=== PATIENT | female | born 1935 | race Caucasian/White ===

== ENCOUNTER → 2017-06-16 | Outpatient (CLI) | payer MEDICARE ==
--- NOTE | 2017-06-16 16:39 | BD ---
EXAMINATION TYPE: MG DEXA axial skeleton. DATE OF EXAM: 06/16/2017 COMPARISON: NONE CLINICAL HISTORY: 81-year-old female with osteopenia, postmenopausal screening Height: 5 FT 4 IN Weight: 200 FRAX RISK QUESTIONS: Alcohol (3 or more units per day): NO Family History (Parent hip fracture): NO Glucocorticoids (More than 3mos): NO (Ex: prednisone, prednisolone, methylprednisolone, dexamethasone, and hydrocortisone). History of Fracture in Adulthood: YES Secondary Osteoporosis: 1. Type 1 Diabetes: NO 2. Hyperthyroidism: NO 3. Menopause before 45: YES 4. Malnutrition: NO 5. Chronic liver disease: NO Rheumatoid Arthritis: YES Current Tobacco Use: NO RISK FACTORS HISTORY OF: Family History of Osteoporosis: YES Active: NO Postmenopausal woman: AGE 41 MEDICATIONS: Additional Medications: ALPRAZOLAM,FAMOTIDINE,LOSARTIN, NORCO, DULOXETINE HCL,CEPHALEXIN, DICYCLOMINE ,CARBIDOPA LEVODPA,AMITRIPTYLINE, NOVALOG, NASACORT, NYSTATIN CREAMFLUCIONIDE, VOLTAREN GEL Additional History: EXAM MEASUREMENTS: Bone mineral densitometry was performed using the [employer] System. Bone mineral density as measured about the Lumbar spine is: ----- L1-L4(G/cm2): 1.368 T Score Values are as follows: ----- L2: 1.0 ----- L3: 1.3 ----- L4: 2.0 ----- L1-L4: 1.4 Bone mineral density has: Increased 1.7% since study of: 2014 Bone mineral density about the R hip (g/cm2): 0.849 Bone mineral density about the L hip (g/cm2): 0.779 T Score values are as follows: -----R Neck: -1.4 -----L Neck: -1.9 -----R Total: -0.9 -----L Total: -1.0 Bone mineral density has: Increased 1.1% since study of: 2014 IMPRESSION: Osteopenia (T Score between -2.5 and -1 as noted by T score values in both hips). There is slightly increased risk of fracture and the patient may be considered for treatment. Re-Scre en 2-5 years. NOTE: T-SCORE=SD OF THE YOUNG ADULT MEAN.
--- NOTE | 2017-06-17 12:47 | MM ---
Reason for exam: screening (asymptomatic). Last mammogram was performed 1 year and 3 months ago. History: Patient is postmenopausal and is nulliparous. Benign core biopsy of the right breast, 1999. 2 excisional biopsies of the left breast, 1999. Physical Findings: A clinical breast exam by your physician is recommended on an annual basis and results should be correlated with mammographic findings. MG 3D Screening Mammo W/Cad Bilateral CC and MLO view(s) were taken. Prior study comparison: March 03, 2016, bilateral MG 3d screening mammo w/cad. August 26, 2015, left breast MG 3d diag mammo w/cad LT. There are scattered fibroglandular densities. No suspicious abnormality in the right breast. Focal asymmetry in the left upper outer quadrant middle depth just posterior to dystrophic calcifications on CC view and MLO view . ASSESSMENT: Incomplete: need additional imaging evaluation, BI-RAD 0 RECOMMENDATION: Special view mammogram of the left breast. If lesion persists on supplemental views, image directed ultrasound is recommended. [facility] will attempt to contact patient to return for supplemental views and ultrasound if indicated.
== END ==
LOC: RADMAMWWP 13:24
PROVIDERS: ATTEND Internal Medicine
DX: Z12.31 Encounter for screening mammogram for malignant neoplasm of breast (principal); M85.851 Other specified disorders of bone density and structure, right thigh; M85.852 Other specified disorders of bone density and structure, left thigh
CPT/HCPCS: 77080; 77063; G0202

== ENCOUNTER → 2018-07-01 | Outpatient (CLI) | payer MEDICARE ==
--- NOTE | 2018-07-01 16:56 | US ---
EXAMINATION TYPE: US transvaginal DATE OF EXAM: 07/01/2018 COMPARISON: NONE CLINICAL HISTORY: R10.2Pelvic and perineal pain, N93.9Abnormal uteri. Spotting, left ovary removed. TECHNIQUE: Transvaginal (TV). EXAM MEASUREMENTS: Uterus: 5.4 x 2.5 x 3.7 cm Endometrial Stripe: 1.2 cm Right Ovary: Obscured by bowel gas Left Ovary: Surgically absent 1. Uterus: Anteverted wnl 2. Endometrium: Enlarged heterogenous texture. 3. Right Ovary: Not seen 4. Left Ovary: Surgically absent 5. Bilateral Adnexa: wnl 6. Posterior cul-de-sac: wnl Enlarged heterogenous endometrium 1.2cm. IMPRESSION: 1. Endometrium appears heterogenous and thickened. 2. Nonvisualization of the right ovary.
== END ==
LOC: RADUSMAIN 15:40
PROVIDERS: ATTEND Internal Medicine
DX: N93.9 Abnormal uterine and vaginal bleeding, unspecified (principal); R10.2 Pelvic and perineal pain
CPT/HCPCS: 76830

== ENCOUNTER → 2018-07-14 | Outpatient (CLI) | payer MEDICARE ==
[2018-07-14 14:01] LABS: Basophils % (A) 0 %; Eosinophils # (A) 0.3 k/uL (0-0.7); Eosinophils % (A) 4 %; HCT 38.9 % (34.0-46.0); HGB 12.3 gm/dL (11.4-16.0); Lymphocytes # (A) 2.4 k/uL (1.0-4.8); Lymphocytes % (A) 32 %; MCH 30.1 pg (25.0-35.0); MCHC 31.5 g/dL (31.0-37.0); MCV 95.6 fL (80.0-100.0); Mean Platelet Volume 7.1; Monocytes # (A) 0.4 k/uL (0-1.0); Monocytes % (A) 5 %; Neutrophils # (A) 4.2 k/uL (1.3-7.7); Neutrophils % (A) 56 %; Platelet Count 197 k/uL (150-450); RBC 4.07 m/uL (3.80-5.40); RDW 13.3 % (11.5-15.5); WBC 7.5 k/uL (3.8-10.6)
== END | disposition home or self-care (01) ==
LOC: LABPAT 11:59
PROVIDERS: ATTEND Obstetrics & Gynecology Obstetrics
DX: Z01.818 Encounter for other preprocedural examination (principal); I10 Essential (primary) hypertension; N95.0 Postmenopausal bleeding; Z01.812 Encounter for preprocedural laboratory examination
CPT/HCPCS: 36415; 85025; 93005

== ENCOUNTER → 2018-08-05 | Outpatient (CLI) | payer MEDICARE ==
[2018-08-05 14:48] LABS: Albumin 3.6 g/dL (3.5-5.0); Calcium 9.2 mg/dL (8.4-10.2); Potassium 4.6 mmol/L (3.5-5.1); Total Bilirubin 0.5 mg/dL (0.2-1.3); Total Protein 6.9 g/dL (6.3-8.2)
[2018-08-05 22:22] LABS: Hemoglobin A1C 8.4 % (4.0-6.0)
--- NOTE | 2018-08-08 10:56 | MM ---
Reason for exam: screening (asymptomatic). Last mammogram was performed 1 year and 1 month ago. History: Patient is postmenopausal and is nulliparous. Benign core biopsy of the right breast, 1999. 2 excisional biopsies of the left breast, 1999. Physical Findings: A clinical breast exam by your physician is recommended on an annual basis and results should be correlated with mammographic findings. MG 3D Screening Mammo W/Cad Bilateral CC and MLO view(s) were taken. Prior study comparison: June 23, 2017, left breast MG 3d work up w/cad LT. June 16, 2017, bilateral MG 3d screening mammo w/cad. There are scattered fibroglandular densities. There are increasing calcifications in the upper outer quadrant bilaterally at middle depth, 3mm group on the right and 4mm group on the left. ASSESSMENT: Incomplete: need additional imaging evaluation, BI-RAD 0 RECOMMENDATION: Special view mammogram of both breasts. If lesion persists on supplemental views, image directed ultrasound is recommended. [facility] will attempt to contact patient to return for supplemental views and ultrasound if indicated.
== END | disposition home or self-care (01) ==
LOC: RADMAMWWP 13:29
PROVIDERS: ATTEND Internal Medicine
DX: Z12.31 Encounter for screening mammogram for malignant neoplasm of breast (principal); E11.9 Type 2 diabetes mellitus without complications
CPT/HCPCS: 36415; 77063; 77067; 80053; 83036

== ENCOUNTER → 2018-09-15 | Outpatient (CLI) | payer MEDICARE ==
--- NOTE | 2018-09-17 16:01 | MM ---
Reason for exam: additional evaluation requested from abnormal screening. Last mammogram was performed 1 month ago. History: Patient is postmenopausal and is nulliparous. Benign core biopsy of the right breast, 1999. 2 excisional biopsies of the left breast, 1999. Physical Findings: Nurse Summary: a 0.5 x 0.5 cm dominant mass at 3 o'clock at the scar. MG 3D Work Up W/Cad CATHERINE Bilateral CC with magnification, ML, and ML with magnification view(s) were taken. Prior study comparison: August 05, 2018, bilateral MG 3d screening mammo w/cad. June 23, 2017, left breast MG 3d work up w/cad LT. There are benign-appearing grouped round dystrophic bilateral breast calcifications. Increase in number o calcifications bilaterally. These results were verbally communicated with the patient and result sheet given to the patient on 09/15/18. ASSESSMENT: Probably benign, BI-RAD 3 RECOMMENDATION: Follow-up diagnostic mammogram of both breasts in 6 months. To include special views.
== END | disposition home or self-care (01) ==
LOC: RADMAMWWP 13:38
PROVIDERS: ATTEND Internal Medicine
DX: R92.8 Other abnormal and inconclusive findings on diagnostic imaging of breast (principal)
CPT/HCPCS: 77066; G0279; 77062

== ENCOUNTER → 2018-12-22 | Outpatient (CLI) | payer MEDICARE | END | disposition home or self-care (01) | LOC: RADUSWWP 12:02 | PROVIDERS: ATTEND Physical Medicine & Rehabilitation | DX: M79.605 Pain in left leg (principal); M79.604 Pain in right leg; M79.89 Other specified soft tissue disorders | CPT/HCPCS: 93922 ==

== ENCOUNTER → 2019-04-19 | Outpatient (CLI) | payer MEDICARE ==
--- NOTE | 2019-04-19 14:15 | MM ---
Reason for exam: follow-up at short interval from prior study. Last mammogram was performed 7 months ago. History: Patient is postmenopausal and is nulliparous. Benign core biopsy of the right breast, 1999. 2 excisional biopsies of the left breast, 1999. Physical Findings: Nurse Summary: 0.25cm nodule in the left breast at 3 o'clock (nurse dw). MG 3D Diag Mammo W/Cad CATHERINE Bilateral CC and MLO view(s) were taken. Prior study comparison: September 15, 2018, bilateral MG 3d work up w/cad CATHERINE. August 05, 2018, bilateral MG 3d screening mammo w/cad. There are scattered fibroglandular densities. The bilateral grouped calcifications are stable with particular attention to the right upper outer quadrant calcifications at middle depth and left upper outer quadrant calcifications at middle depth. These results were verbally communicated with the patient and result sheet given to the patient on 04/19/19. ASSESSMENT: Probably benign, BI-RAD 3 RECOMMENDATION: Follow-up diagnostic mammogram of both breasts in 6 months.
== END | disposition home or self-care (01) ==
LOC: RADMAMWWP 13:09
PROVIDERS: ATTEND Family Medicine
DX: R92.8 Other abnormal and inconclusive findings on diagnostic imaging of breast (principal)
CPT/HCPCS: 77066; G0279; 77062

== ENCOUNTER 2020-02-23 20:26 | Emergency (ER) | payer MEDICARE ==
[2020-02-23 20:36] VITALS: TEMP 98.5
[2020-02-23] MEDS ORDERED: HYDROmorphone 1 MG/ML 1 ML SYRINGE IVP STA (21:07)
--- NOTE | 2020-02-23 21:24 | ED ---
General Adult HPI - General Chief complaint: Back Pain/Injury Stated complaint: Back pain Time Seen by Provider: 02/23/20 20:36 Source: patient, family, RN notes reviewed, old records reviewed Mode of arrival: wheelchair Limitations: no limitations - History of Present Illness Initial comments: 84-year-old female presenting for evaluation of right lower back pain. Pain is been present for the past 3 weeks. She denies any specific injury or trauma. Patient denies fever or chills. She states the pain is been worsening over the past several days. She took Tylenol today with minimal relief. Pain is worse with movement. She denies any numbness or tingling or shooting pain into the legs. She denies bowel or bladder incontinence. Denies dysuria or hematuria. Denies vomiting. - Related Data Home Medications Medication Instructions Recorded Confirmed ALPRAZolam [Xanax] 0.25 mg PO TID MDD 0.25 07/14/16 07/15/18 DULoxetine HCL [Cymbalta] 20 mg PO QAM 07/14/16 07/15/18 Dicyclomine [Bentyl] 10 mg PO QID PRN 07/14/16 07/18/18 Famotidine 40 mg PO HS 07/14/16 07/15/18 Insulin Aspart [NovoLOG] 24 units SQ AC-TID 07/14/16 07/18/18 Insulin Glargine [Lantus] 50 unit SQ HS 07/14/16 07/18/18 Krill Oil 1 tab PO DAILY 07/14/16 07/15/18 L.acidoph,Paracasei, B.lactis 1 tab PO DAILY 07/14/16 07/15/18 [Probiotic] Melatonin 3 mg PO HS 07/14/16 07/15/18 Multivitamins, Thera [Multivitamin] 1 tab PO DAILY 07/14/16 07/15/18 Nystatin 100,000 Unit/gm Oint 1 applic TOPICAL DIRECTED PRN 07/14/16 07/15/18 [Mycostatin Oint] Selenium 100 mcg PO DAILY 07/14/16 07/15/18 rOPINIRole HCL [Requip Xl] 4 mg PO QAM 07/14/16 07/15/18 Amitriptyline HCl [Elavil] 10 mg PO HS 07/15/18 07/15/18 Amoxicillin 500 mg PO ONCE PRN 07/15/18 07/18/18 Biotin 5,000 mcg PO DAILY 07/15/18 07/15/18 Calcium 5 mg PO DAILY 07/15/18 07/15/18 Calcium Carbonate/Vitamin D3 1 each PO DAILY 07/15/18 07/15/18 [Calcium 600-Vit D3 200 Tablet] Carbidopa-Levodopa ER 50-200Mg 1 each PO TID 07/15/18 07/15/18 [Sinemet ER 50-200] Cholecalciferol (Vitamin D3) 2,000 unit PO DAILY 07/15/18 07/15/18 [Vitamin D3] Diclofenac Sodium [Voltaren Gel] 2 gram TOPICAL DIRECTED PRN 07/15/18 07/15/18 HYDROcodone/APAP 5-325MG [Mozier 1 tab PO QID 07/15/18 07/15/18 5-325] Hydrocortisone Cream 1 applic TOPICAL BID PRN 07/15/18 07/18/18 [Hydrocortisone 2.5% Cream] Losartan [Cozaar] 50 mg PO QAM 07/15/18 07/15/18 Magnesium 500 mg PO DAILY 07/15/18 07/15/18 Saline Eye Drops 2 drops BOTH EYES BID 07/15/18 07/18/18 Stool Softener 2 tab PO HS 07/15/18 07/15/18 Ubidecarenone [Co Q-10] 400 mg PO DAILY 07/15/18 07/15/18 Vitamin B-12 300 mg PO DAILY 07/15/18 07/15/18 Previous Rx's Medication Instructions Recorded HYDROcodone/APAP 5-325MG [Mozier 1 tab PO Q6HR PRN #12 tab 02/23/20 5-325] Allergies Allergy/AdvReac Type Severity Reaction Status Date / Time codeine AdvReac Hallucinati Verified 02/23/20 20:36 ons Review of Systems ROS Statement: Those systems with pertinent positive or pertinent negative responses have been documented in the HPI. ROS Other: All systems not noted in ROS Statement are negative. Past Medical History Past Medical History: Diabetes Mellitus Additional Past Medical History / Comment(s): Parkinsons, Arthritis, diverticulitis History of Any Multi-Drug Resistant Organisms: None Reported Past Surgical History: Joint Replacement, Tonsillectomy Past Anesthesia/Blood Transfusion Reactions: No Reported Reaction Past Psychological History: No Psychological Hx Reported Smoking Status: Never smoker Past Alcohol Use History: None Reported Past Drug Use History: None Reported General Exam Limitations: no limitations General appearance: alert, in no apparent distress Head exam: Present: atraumatic, normocephalic Eye exam: Present: normal appearance, PERRL ENT exam: Present: normal exam Neck exam: Present: normal inspection. Absent: tenderness, meningismus Respiratory exam: Present: normal lung sounds bilaterally. Absent: respiratory distress, wheezes Cardiovascular Exam: Present: regular rate, normal rhythm GI/Abdominal exam: Present: soft. Absent: distended, tenderness, guarding Extremities exam: Present: normal inspection, normal capillary refill. Absent: pedal edema, calf tenderness Back exam: Present: muscle spasm, paraspinal tenderness. Absent: vertebral t enderness Neurological exam: Present: alert, oriented X3, CN II-XII intact. Absent: motor sensory deficit Psychiatric exam: Present: normal affect, normal mood Skin exam: Present: warm, dry, intact. Absent: cyanosis, diaphoretic Course Vital Signs 02/23/20 20:33 Temperature 98.5 F Pulse Rate 87 Respiratory 20 Rate Blood Pressure 139/70 O2 Sat by Pulse 98 Oximetry Medical Decision Making - Medical Decision Making 84-year-old female with right flank pain. Patient receives morphine emergency department with improvement in her pain. CT performed is negative for renal stone, no hydro-, previous bowel resection, no acute findings. She does have some spinal canal narrowing at L3-L4. No acute fracture or subluxation. Urinalysis showing several white cells, no red cells. She will be prescribed s ome Mozier and will follow-up with her primary care physician. Patient eager for discharge. - Lab Data Result diagrams: 02/23/20 21:26 Lab Results 02/23/20 02/23/20 Range/Units 21:26 21:30 Sodium 134 L (137-145) mmol/L Potassium 4.4 (3.5-5.1) mmol/L Chloride 101 (98-107) mmol/L Carbon Dioxide 28 (22-30) mmol/L Anion Gap 5 mmol/L BUN 18 H (7-17) mg/dL Creatinine 0.76 (0.52-1.04) mg/dL Est GFR (CKD-EPI)AfAm 84 (>60 ml/min/1.73 sqM) Est GFR (CKD-EPI)NonAf 73 (>60 ml/min/1.73 sqM) Glucose 284 H (74-99) mg/dL Calcium 8.7 (8.4-10.2) mg/dL Total Bilirubin 0.3 (0.2-1.3) mg/dL AST 29 (14-36) U/L ALT 10 (4-34) U/L Alkaline Phosphatase 131 H (38-126) U/L Total Protein 6.4 (6.3-8.2) g/dL Albumin 3.4 L (3.5-5.0) g/dL Urine Color Yellow Urine Appearance Clear (Clear) Urine pH 5.5 (5.0-8.0) Ur Specific Green 1.033 (1.001-1.035) Urine Protein Trace H (Negative) Urine Glucose (UA) 4+ H (Negative) Urine Ketones 1+ H (Negative) Urine Blood Negative (Negative) Urine Nitrite Negative (Negative) Urine Bilirubin Negative (Negative) Urine Urobilinogen 3.0 (<2.0) mg/dL Ur Leukocyte Esterase Moderate H (Negative) Urine RBC 3 (0-5) /hpf Urine WBC 16 H (0-5) /hpf Ur Squamous Epith Cells 2 (0-4) /hpf Hyaline Casts 1 (0-2) /lpf Urine Mucus Rare H (None) /hpf Disposition Clinical Impression: Mechanical back pain, Strain of lumbar region Disposition: HOME SELF-CARE Condition: Fair Instructions (If sedation given, give patient instructions): Acute Low Back Pain (ED) Prescriptions: HYDROcodone/APAP 5-325MG [Mozier 5-325] 1 tab PO Q6HR PRN #12 tab PRN Reason: Pain Is patient prescribed a controlled substance at d/c from ED?: No Referrals: Jessenia Grant MD [Primary Care Provider] - 1-2 days Time of Disposition: 23:10
[2020-02-23 21:44] LABS: Albumin 3.4 g/dL (3.5-5.0); Calcium 8.7 mg/dL (8.4-10.2); Potassium 4.4 mmol/L (3.5-5.1); Total Bilirubin 0.3 mg/dL (0.2-1.3); Total Protein 6.4 g/dL (6.3-8.2)
[2020-02-23 21:53] LABS: Appearance,Urine Clear (Clear); Bilirubin,Urine Negative (Negative); Blood,Urine Negative (Negative); Color,Urine Yellow; Glucose,Urine (UA) 4+ (Negative); Hyaline Casts,Urine 1 /lpf (0-2); Ketones,Urine 1+ (Negative); Leukocyte Esterase,Urine Moderate (Negative); Mucus,Urine Rare /hpf; Nitrite,Urine Negative (Negative); PH, Urine 5.5 (5.0-8.0); Protein,Urine Trace (Negative); RBC,Urine 3 /hpf (0-5); Specific Gravity,Urine 1.033 (1.001-1.035); Squamous Epithelial Cell,Urine 2 /hpf (0-4); WBC,Urine 16 /hpf (0-5)
--- NOTE | 2020-02-23 22:00 | CT ---
EXAMINATION TYPE: CT abdomen pelvis wo con DATE OF EXAM: 02/23/2020 COMPARISON: None HISTORY: 84-year-old female with right flank pain CT DLP: 991.5 mGycm. Automated exposure control for dose reduction was used. TECHNIQUE: Contiguous axial scanning of the abdomen and pelvis without IV contrast. Coronal and sagit alejandrina reconstructions performed. FINDINGS: Heart normal size without pericardial effusion. Mitral annular calcifications are present. Strandy at electasis at the left base without pleural effusion. Tiny hiatal hernia. Liver borderline enlarged at 17.8 cm with low-attenuation suggesting fatty infiltration. Cholecystectomy clips. Noncontrast appearance of the adrenal glands, kidneys, spleen, and atrophic pancreas show no gross ab normality. No nephrolithiasis or hydronephrosis. No suspicious calcification seen along the course of either ure ter. No dilated small bowel, free fluid, or free air. No mesenteric or retroperitoneal lymphadenopathy. Small fatty umbilical hernia. Mild overall stool burden. Mild proximal sigmoid diverticulosis. Staple line near the rectosigmoid ju nction suggesting prior bowel resection and reanastomosis. Some thickening along the infraumbilical midline abdominal wall musculature suggesting scarring relat ed to prior surgery. Bladder partially distended. Uterus is small and anteverted. Neither ovary clearly seen. Multiple pel hilton phleboliths. No abnormal fluid collection in the pelvis or pelvic lymphadenopathy. Bones: Mild degenerative change of the hips. Degenerative disc disease throughout the lumbar spleen. Hypertrophic facet arthropathy. There may be a moderate narrowing of the spinal canal L3-L4. IMPRESSION: 1. No nephrolithiasis or hydronephrosis. 2. Prior distal colon resection with rectosigmoid reanastomosis. Mild proximal sigmoid diverticulosi s without acute diverticulitis. 3. Small fatty umbilical hernia and tiny hiatal hernia. Hepatic steatosis.
[2020-02-23 23:54] VITALS: BP 139/62; PULSE 89; RESP 18
== END 2020-02-23 23:28 | disposition home or self-care (01) ==
LOC: EC 20:26
DX: S39.012A Strain of muscle, fascia and tendon of lower back, initial encounter (principal); M48.061 Spinal stenosis, lumbar region without neurogenic claudication; E11.9 Type 2 diabetes mellitus without complications; G20 Parkinson's disease; Z79.4 Long term (current) use of insulin; Z79.899 Other long term (current) drug therapy; Z88.5 Allergy status to narcotic agent; X58.XXXA Exposure to other specified factors, initial encounter
CPT/HCPCS: 36415; 80053; 81001; 87086; 74176; 99284; 96374; J1170

== ENCOUNTER → 2021-01-20 | Outpatient (CLI) | payer MEDICARE ==
[2021-01-20 19:22] LABS: Basophils # (A) 0.05 X 10*3/uL (0.00-0.10); Basophils % (A) 0.6 %; Eosinophils # (A) 0.23 X 10*3/uL (0.04-0.35); Eosinophils % (A) 2.8 %; HCT 37.7 % (37.2-46.3); HGB 11.9 g/dL (12.0-15.0); Lymphocytes # (A) 2.46 X 10*3/uL (0.90-5.00); Lymphocytes % (A) 29.7 %; MCH 29.9 pg (27.0-32.0); MCHC 31.6 g/dL (32.0-37.0); MCV 94.7 fL (80.0-97.0); Mean Platelet Volume 10.7 fL (9.5-12.2); Monocytes # (A) 0.51 X 10*3/uL (0.20-1.00); Monocytes % (A) 6.2 %; Neutrophils # (A) 4.98 X 10*3/uL (1.80-7.70); Neutrophils % (A) 60.2 %; Platelet Count 233 X 10*3/uL (140-440); RBC 3.98 X 10*6/uL (4.10-5.20); RDW 13.2 % (11.5-14.5); WBC 8.27 X 10*3/uL (4.50-10.00)
[2021-01-20 21:34] LABS: ALT <8 U/L (8-44); AST 24 U/L (13-35); African American GFR (CKD) 68.1 (60.0-200.0); Albumin/Globulin Ratio 1.46 (1.60-3.17); Alkaline Phosphatase 65 U/L (41-126); Amylase 64 U/L (23-121); Calcium 8.8 mg/dL (8.7-10.3); Carbon Dioxide 25.4 mmol/L (21.6-31.8); Chloride 109 mmol/L (96-109); Globulin 2.4 g/dL (1.6-3.3); Glucose 88 mg/dL (70-110); Lipase 24 U/L (14-63); Non-African American GFR(CKD) 58.7 (60.0-200.0); Potassium 4.4 mmol/L (3.5-5.5); Sodium 142 mmol/L (135-145); Total Bilirubin 0.5 mg/dL (0.2-1.2); Total Protein 5.9 g/dL (6.2-8.2)
== END | disposition home or self-care (01) ==
LOC: LABWHC1 12:44
PROVIDERS: ATTEND Registered Nurse
DX: R10.84 Generalized abdominal pain (principal)
CPT/HCPCS: 36415; 80053; 82150; 83690; 85025

== ENCOUNTER → 2021-05-30 | Outpatient (CLI) | payer MEDICARE ==
[2021-05-30 19:04] LABS: HCT 38.4 % (37.2-46.3); HGB 12.4 g/dL (12.0-15.0); MCH 30.5 pg (27.0-32.0); MCHC 32.3 g/dL (32.0-37.0); MCV 94.3 fL (80.0-97.0); Mean Platelet Volume 10.4 fL (9.5-12.2); Platelet Count 245 X 10*3/uL (140-440); RBC 4.07 X 10*6/uL (4.10-5.20); RDW 12.9 % (11.5-14.5); WBC 8.05 X 10*3/uL (4.50-10.00)
[2021-05-30 19:55] LABS: Hemoglobin A1C 8.4 % (4.0-6.0)
[2021-05-30 22:44] LABS: African American GFR (CKD) 43.6 (60.0-200.0); Albumin 3.9 g/dL (3.80-4.90); Albumin/Globulin Ratio 1.5 (1.60-3.17); Anion Gap 8.8 mmol/L (4.00-12.00); Calcium 9.2 mg/dL (8.7-10.3); Carbon Dioxide 26.2 mmol/L (21.6-31.8); Globulin 2.6 g/dL (1.6-3.3); Non-African American GFR(CKD) 37.6 (60.0-200.0); Potassium 4.6 mmol/L (3.5-5.5); Total Bilirubin 0.4 mg/dL (0.3-1.2); Total Protein 6.5 g/dL (6.2-8.2)
[2021-05-30 22:52] LABS: T4, Free (Free Thyroxine) 1.2 ng/dL (0.80-1.80)
== END | disposition home or self-care (01) ==
LOC: LABWHC1 13:39
PROVIDERS: ATTEND Registered Nurse
DX: E11.9 Type 2 diabetes mellitus without complications (principal); R53.83 Other fatigue; R61 Generalized hyperhidrosis; Z79.899 Other long term (current) drug therapy
CPT/HCPCS: 36415; 80053; 83036; 84439; 84443; 84481; 85027

== ENCOUNTER 2021-08-31 14:02 | Inpatient (IN) | payer MEDICARE ==
--- NOTE | 2021-08-31 15:11 | ED ---
General Adult HPI - General Source: patient, family, EMS, RN notes reviewed Mode of arrival: EMS Limitations: no limitations <Andrea Cee - Last Filed: 08/31/21 15:08> <Neil Aldrich - Last Filed: 08/31/21 19:16> - General Chief complaint: Syncope Stated complaint: Bradycardia Time Seen by Provider: 08/31/21 14:10 - History of Present Illness Initial comments: Patient is a pleasant 86-year-old female presenting with daughter with episode of syncope. Patient woke up around noon and was eating breakfast. Patient has been sleeping until noon regularly and that is normal for her. Patient states she feels fine at this time has no complaints. Daughter states patient did have some abnormal movement and was unresponsive for a short period of time. Patient feels fine at this time has no complaints. No history of similar symptoms previously. (Andrea Cee) Patient is cyanotic male by previous shift physician, Dr. Cee. Briefly, patient is a 86-year-old female past medical history of diabetes, Parkinson's. She has no complaints at the bedside. Physical exam is unremarkable. EKG machine interprets cardiogram as second-degree type I. EKG looked like second- degree type I. court recording monitor was reviewed confirming multiple episodes of skipped beat with progressively prolonging MT intervals consistent with second- degree type I. Patient was bradycardic with a rate of 54 bedside. Nonhypertensive. Medications reviewed. Patient does not take any beta blockers or other medications that are suspicious for causing bradycardia. Patient was evaluated at bedside at 7:00 PM.Daughter was still at the bedside and told me the story about what happened today. She reports that patient had a convulsive episode where 1 of her extremities were is convulsing. Daughter reports that she did witness a postictal state that lasted for several minutes until she returned back to baseline. Patient has seen a neurologist for Parkinson's disease. She has no history of seizure. Labs are unremarkable. CBC, coag panel metabolic panel was within acceptable limits. Physical presentation concerning for new onset seizure. Patient be admitted to the hospital with consultation to neurology. (Neil Aldrich) - Related Data Home Medications Medication Instructions Recorded Confirmed ALPRAZolam [Xanax] 0.25 mg PO TID MDD 0.25 07/14/16 07/15/18 DULoxetine HCL [Cymbalta] 20 mg PO QAM 07/14/16 07/15/18 Dicyclomine [Bentyl] 10 mg PO QID PRN 07/14/16 07/18/18 Famotidine 40 mg PO HS 07/14/16 07/15/18 Insulin Aspart [NovoLOG] 24 units SQ AC-TID 07/14/16 07/18/18 Insulin Glargine [Lantus] 50 unit SQ HS 07/14/16 07/18/18 Krill Oil 1 tab PO DAILY 07/14/16 07/15/18 L.acidoph,Paracasei, B.lactis 1 tab PO DAILY 07/14/16 07/15/18 [Probiotic] Melatonin 3 mg PO HS 07/14/16 07/15/18 Multivitamins, Thera [Multivitamin] 1 tab PO DAILY 07/14/16 07/15/18 Nystatin 100,000 Unit/gm Oint 1 applic TOPICAL DIRECTED PRN 07/14/16 07/15/18 [Mycostatin Oint] Selenium 100 mcg PO DAILY 07/14/16 07/15/18 rOPINIRole HCL [Requip Xl] 4 mg PO QAM 07/14/16 07/15/18 Amitriptyline HCl [Elavil] 10 mg PO HS 07/15/18 07/15/18 Amoxicillin 500 mg PO ONCE PRN 07/15/18 07/18/18 Biotin [Biotin Disolve] 5,000 mcg PO DAILY 07/15/18 07/15/18 Calcium 5 mg PO DAILY 07/15/18 07/15/18 Calcium Carbonate/Vitamin D3 1 each PO DAILY 07/15/18 07/15/18 [Calcium 600-Vit D3 200 Tablet] Carbidopa-Levodopa ER 50-200Mg 1 each PO TID 07/15/18 07/15/18 [Sinemet ER 50-200] Cholecalciferol (Vitamin D3) 2,000 unit PO DAILY 07/15/18 07/15/18 [Vitamin D3] Diclofenac Sodium [Voltaren Gel] 2 gram TOPICAL DIRECTED PRN 07/15/18 07/15/18 HYDROcodone/APAP 5-325MG [[place] 1 tab PO QID 07/15/18 07/15/18 5-325] Hydrocortisone Cream 1 applic TOPICAL BID PRN 07/15/18 07/18/18 [Hydrocortisone 2.5% Cream] Losartan [Cozaar] 50 mg PO QAM 07/15/18 07/15/18 Magnesium 500 mg PO DAILY 07/15/18 07/15/18 Saline Eye Drops 2 drops BOTH EYES BID 07/15/18 07/18/18 Stool Softener 2 tab PO HS 07/15/18 07/15/18 Ubidecarenone [Co Q-10] 400 mg PO DAILY 07/15/18 07/15/18 Vitamin B-12 300 mg PO DAILY 07/15/18 07/15/18 Previous Rx's Medication Instructions Recorded HYDROcodone/APAP 5-325MG [[place] 1 tab PO Q6HR PRN #12 tab 02/23/20 5-325] Allergies Allergy/AdvReac Type Severity Reaction Status Date / Time codeine AdvReac Hallucinati Verified 02/23/20 20:36 ons Review of Systems ROS Other: All systems not noted in ROS Statement are negative. Constitutional: Denies: fever Eyes: Denies: eye pain ENT: Denies: ear pain Respiratory: Denies: cough, dyspnea Cardiovascular: Denies: chest pain Endocrine: Denies: fatigue Gastrointestinal: Denies: abdominal pain Genitourinary: Denies: dysuria Musculoskeletal: Denies: as per HPI Skin: Denies: rash Neurological: Denies: headache, weakness, confusion <Andrea Cee - Last Filed: 08/31/21 15:08> ROS Other: All systems not noted in ROS Statement are negative. <Neil Aldrich - Last Filed: 08/31/21 19:16> ROS Statement: Those systems with pertinent positive or pertinent negative responses have been documented in the HPI. Past Medical History Past Medical History: Diabetes Mellitus Additional Past Medical History / Comment(s): Parkinsons, Arthritis, diverticulitis History of Any Multi-Drug Resistant Organisms: None Reported Past Surgical History: Joint Replacement, Tonsillectomy Past Anesthesia/Blood Transfusion Reactions: No Reported Reaction Past Psychological History: No Psychological Hx Reported Smoking Status: Former smoker Past Alcohol Use History: None Reported Past Drug Use History: None Reported <Andrea Cee - Last Filed: 08/31/21 15:08> General Exam Limitations: no limitations General appearance: alert, in no apparent distress Head exam: Present: atraumatic Eye exam: Present: normal appearance, PERRL, EOMI. Absent: nystagmus ENT exam: Present: normal oropharynx Neck exam: Present: normal inspection Respiratory exam: Present: normal lung sounds bilaterally Cardiovascular Exam: Present: bradycardia Expanded Peripheral pulses: 2+: Radial (R), Radial (L), Dorsalis Pedis (R), Dorsalis Pedis (L) GI/Abdominal exam: Present: soft. Absent: tenderness Extremities exam: Present: normal inspection. Absent: pedal edema, calf tenderness Neurological exam: Present: alert, oriented X3, CN II-XII intact. Absent: motor sensory deficit Expanded Neurological exam: Present: protecting the airway Patient oriented to: Present: person, place, time Speech: Present: fluid speech Cranial nerves: EOM's Intact: Normal Motor strength exam: RUE: 5, LUE: 5, RLE: 5, LLE: 5 Eye Response: (4) open spontaneously Motor Response: (6) obeys commands Verbal Response: (5) oriented Psychiatric exam: Present: normal affect, normal mood Skin exam: Present: normal color <Andrea Cee - Last Filed: 08/31/21 15:08> Course Vital Signs 08/31/21 08/31/21 14:34 17:00 Temperature 97.5 F L Pulse Rate 54 L 51 L Respiratory 17 16 Rate Blood Pressure 120/100 104/76 O2 Sat by Pulse 100 100 Oximetry EKG Findings - EKG Comments: EKG Findings:: Sinus bradycardia with second-degree block type I. QRS 92. QT 46. QTc 440. Left axis. Normal QRS. No acute ST change. <Andrea Cee - Last Filed: 08/31/21 15:08> Medical Decision Making - Lab Data Result diagrams: 08/31/21 15:07 08/31/21 15:07 <Neil Aldrich - Last Filed: 08/31/21 19:16> - Lab Data Lab Results 08/31/21 08/31/21 08/31/21 Range/Units 15:07 15:07 15:07 WBC 9.2 (3.8-10.6) k/uL RBC 4.15 (3.80-5.40) m/uL Hgb 12.8 (11.4-16.0) gm/dL Hct 40.4 (34.0-46.0) % MCV 97.3 (80.0-100.0) fL MCH 31.0 (25.0-35.0) pg MCHC 31.8 (31.0-37.0) g/dL RDW 13.1 (11.5-15.5) % Plt Count 180 (150-450) k/uL MPV 7.7 Neutrophils % 77 % Lymphocytes % 15 % Monocytes % 4 % Eosinophils % 1 % Basophils % 0 % Neutrophils # 7.1 (1.3-7.7) k/uL Lymphocytes # 1.4 (1.0-4.8) k/uL Monocytes # 0.4 (0-1.0) k/uL Eosinophils # 0.1 (0-0.7) k/uL Basophils # 0.0 (0-0.2) k/uL Hypochromasia Slight PT 10.5 (9.0-12.0) sec INR 1.0 (<1.2) APTT 22.7 (22.0-30.0) sec Sodium 140 (137-145) mmol/L Potassium 4.9 (3.5-5.1) mmol/L Chloride 109 H (98-107) mmol/L Carbon Dioxide 25 (22-30) mmol/L Anion Gap 6 mmol/L BUN 16 (7-17) mg/dL Creatinine 0.76 (0.52-1.04) mg/dL Est GFR (CKD-EPI)AfAm 83 (>60 ml/min/1.73 sqM) Est GFR (CKD-EPI)NonAf 72 (>60 ml/min/1.73 sqM) Glucose 205 H (74-99) mg/dL Calcium 8.5 (8.4-10.2) mg/dL Magnesium 1.8 (1.6-2.3) mg/dL Total Bilirubin 0.3 (0.2-1.3) mg/dL AST 23 (14-36) U/L ALT 8 (4-34) U/L Alkaline Phosphatase 83 (38-126) U/L Troponin I (0.000-0.034) ng/mL Total Protein 5.9 L (6.3-8.2) g/dL Albumin 3.0 L (3.5-5.0) g/dL 08/31/21 Range/Units 15:16 WBC (3.8-10.6) k/uL RBC (3.80-5.40) m/uL Hgb (11.4-16.0) gm/dL Hct (34.0-46.0) % MCV (80.0-100.0) fL MCH (25.0-35.0) pg MCHC (31.0-37.0) g/dL RDW (11.5-15.5) % Plt Count (150-450) k/uL MPV Neutrophils % % Lymphocytes % % Monocytes % % Eosinophils % % Basophils % % Neutrophils # (1.3-7.7) k/uL Lymphocytes # (1.0-4.8) k/uL Monocytes # (0-1.0) k/uL Eosinophils # (0-0.7) k/uL Basophils # (0-0.2) k/uL Hypochromasia PT (9.0-12.0) sec INR (<1.2) APTT (22.0-30.0) sec Sodium (137-145) mmol/L Potassium (3.5-5.1) mmol/L Chloride (98-107) mmol/L Carbon Dioxide (22-30) mmol/L Anion Gap mmol/L BUN (7-17) mg/dL Creatinine (0.52-1.04) mg/dL Est GFR (CKD-EPI)AfAm (>60 ml/min/1.73 sqM) Est GFR (CKD-EPI)NonAf (>60 ml/min/1.73 sqM) Glucose (74-99) mg/dL Calcium (8.4-10.2) mg/dL Magnesium (1.6-2.3) mg/dL Total Bilirubin (0.2-1.3) mg/dL AST (14-36) U/L ALT (4-34) U/L Alkaline Phosphatase (38-126) U/L Troponin I 0.013 (0.000-0.034) ng/mL Total Protein (6.3-8.2) g/dL Albumin (3.5-5.0) g/dL Disposition <Andrea Cee - Last Filed: 08/31/21 15:08> <Neil Aldrich - Last Filed: 08/31/21 19:16> Clinical Impression: New onset seizure Disposition: ADMITTED IP TO THIS [facility] Condition: Fair Instructions (If sedation given, give patient instructions): Seizure/Epilepsy Discharge Instructions & Follow-Up Referrals: Jessenia Grant MD [Primary Care Provider] - 1-2 days
[2021-08-31] MEDS: SODIUM CHLORIDE 0.9% 1,000 ML IV STA ×2 (15:30→21:45)
--- NOTE | 2021-08-31 16:20 | XR ---
EXAMINATION TYPE: XR chest 1V portable DATE OF EXAM: 08/31/2021 COMPARISON: CT abdomen/pelvis 02/23/2020 HISTORY: Syncope TECHNIQUE: Single frontal view of the chest is obtained. FINDINGS: There is no focal air space opacity, pleural effusion, or pneumothorax seen. The cardiac silhouette size is within normal limits. The osseous structures are intact. IMPRESSION: No acute process.
[2021-08-31 17:38] LABS: Basophils % (A) 0 %; Eosinophils # (A) 0.1 k/uL (0-0.7); Eosinophils % (A) 1 %; HCT 40.4 % (34.0-46.0); HGB 12.8 gm/dL (11.4-16.0); Hypochromasia Slight; Lymphocytes # (A) 1.4 k/uL (1.0-4.8); Lymphocytes % (A) 15 %; MCHC 31.8 g/dL (31.0-37.0); MCV 97.3 fL (80.0-100.0); Mean Platelet Volume 7.7; Monocytes # (A) 0.4 k/uL (0-1.0); Monocytes % (A) 4 %; Neutrophils # (A) 7.1 k/uL (1.3-7.7); Neutrophils % (A) 77 %; Platelet Count 180 k/uL (150-450); RBC 4.15 m/uL (3.80-5.40); RDW 13.1 % (11.5-15.5); WBC 9.2 k/uL (3.8-10.6)
[2021-08-31 17:57] LABS: Calcium 8.5 mg/dL (8.4-10.2); Magnesium 1.8 mg/dL (1.6-2.3); Potassium 4.9 mmol/L (3.5-5.1); Total Bilirubin 0.3 mg/dL (0.2-1.3); Total Protein 5.9 g/dL (6.3-8.2)
[2021-08-31 17:58] LABS: Prothrombin Time 10.5 sec (9.0-12.0)
[2021-08-31 17:59] LABS: Partial Thromboplastin Time 22.7 sec (22.0-30.0)
[2021-08-31] MEDS ORDERED: NALOXONE 0.4 MG/ML 1 ML VIAL IV PRN ×2 (18:59→19:35)
[2021-08-31] MEDS ORDERED: LORazepam 2 MG/ML INJ IV PRN (19:01)
[2021-08-31 20:28] LABS: Appearance,Urine Clear (Clear); Bacteria,Urine Occasional /hpf; Bilirubin,Urine Negative (Negative); Blood,Urine Negative (Negative); Color,Urine Yellow; Glucose,Urine (UA) 3+ (Negative); Hyaline Casts,Urine 7 /lpf (0-2); Ketones,Urine Trace (Negative); Leukocyte Esterase,Urine Moderate (Negative); Mucus,Urine Rare /hpf; Nitrite,Urine Negative (Negative); Protein,Urine Trace (Negative); RBC,Urine 2 /hpf (0-5); Specific Gravity,Urine 1.026 (1.001-1.035); Squamous Epithelial Cell,Urine 1 /hpf (0-4); Urobilinogen,Urine <2.0 mg/dL (<2.0); WBC,Urine 20 /hpf (0-5)
--- NOTE | 2021-08-31 21:10 | CT ---
EXAMINATION TYPE: CT brain wo con DATE OF EXAM: 08/31/2021 COMPARISON: None available HISTORY: new onset seizure CT DLP: 1087.4 mGycm. Automated Exposure Control for Dose Reduction was Utilized. TECHNIQUE: Multiple contiguous axial CT images of the head were performed from the skull base through the vertex without the administration of intravenous contrast. 2-D sagittal and coronal reformats we re obtained. FINDINGS: No acute intracranial hemorrhage, mass effect, or midline shift. The ventricles and sulci are within normal limits in size. No CT evidence of acute large vessel territorial ischemia. Moderat e burden of decreased attenuation within the periventricular and deep white matter bilaterally likely sequela of chronic small vessel ischemic change. Age indeterminate area of decreased attenuation wit hin the right frontal lobe which may relate to a subacute or chronic infarct; otherwise, the vital-whi te differentiation is preserved. Calvarium appears intact. Tiny mucus retention cyst of the right maxillary sinus; otherwise, the visu alized paranasal sinuses and mastoid air cells are clear. Bilateral lens extractions are present. IMPRESSION: 1. No acute intracranial process. If there is concern for acute ischemia, MRI of brain is more sensit lidya examination. 2. Moderate chronic small vessel ischemic change. 3. Age indeterminate area of decreased attenuation within the right frontal lobe which may relate to subacute or chronic infarct. This can be further evaluated with MRI.
[2021-08-31] MEDS: SODIUM CHLORIDE 0.9% 1,000 ML IV SCH (21:46)
[2021-08-31] MEDS ORDERED: ALPRAZolam 0.25 MG TAB PO PRN (22:48)
[2021-08-31] MEDS ORDERED: HYDROcodone/APAP 7.5-325MG 1 EACH TAB PO PRN (22:48)
[2021-08-31] MEDS ORDERED: DICLOFENAC SODIUM GEL 100 GM TUBE TOPICAL PRN (23:00)
--- NOTE | 2021-08-31 23:00 | P.HPIM ---
History of Present Illness H&P Date: 08/31/21 Chief Complaint: syncope vs seizure 86 year old woman with history of dementia, Parkinson's, restless leg syndrome, hypertension, hyperlipidemia presented after episode of passing out. She was eating breakfast with her daughter, when her daughter noted that suddenly patient lost consciousness, and fell back into her chair. Her daughter is a nurse, and noted that her right arm was convulsing at the time, and patient's daughter thought that she was having other stroke or seizure. EMS was called, and patient is brought in by ambience for further evaluation. Patient does not remember anything that happened, and patient's daughter noted that patient was confused after coming back to consciousness. Review of systems is negative for tongue biting, loss of bowel or bladder function, numbness or weakness in extremities, aura prior to episode, palpitations, chest pain, lightheadedness, poor by mouth intake, loss of appetite. Patient says that she has been eating and drinking well, pooping and urinating well. Otherwise denies fevers, chills, vomiting, abdominal pain, diarrhea, constipation, new rashes. Patient does note mild nausea. In the emergency room patient is noted to be afebrile, 104/76, heart rate 54, 100% on 2 L nasal cannula. CBC was unremarkable. Chemistries are unremarkable. LFTs show low total protein and albumin. UA is significant for moderate leukocyte esterase with occasional bacteria, 3+ glucose, trace protein and ketones. Covid was negative. EKG is significant for sinus bradycardia with second-degree AV block which appears to be a Mobitz type I. Brain CT was negative for acute hemorrhage or large vessel occlusion. Chest x-ray did not demonstrate an acute process. Review of Systems All Systems reviewed and pertinent positives and negatives noted in HPI, all other symptoms are negative Past Medical History Past Medical History: Diabetes Mellitus, Hypertension Additional Past Medical History / Comment(s): Parkinsons, Arthritis, diverticulitis History of Any Multi-Drug Resistant Organisms: None Reported Past Surgical History: Joint Replacement, Tonsillectomy Past Anesthesia/Blood Transfusion Reactions: No Reported Reaction Past Psychological History: No Psychological Hx Reported Smoking Status: Former smoker Past Alcohol Use History: None Reported Past Drug Use History: None Reported Medications and Allergies Home Medications Medication Instructions Recorded Confirmed Type ALPRAZolam [Xanax] 0.25 mg PO DAILY PRN 07/14/16 08/31/21 History Famotidine 40 mg PO HS 07/14/16 08/31/21 History Insulin Aspart [NovoLOG] 5 - 15 units SQ AC-TID 07/14/16 08/31/21 History Insulin Glargine [Lantus] 20 unit SQ BID 07/14/16 08/31/21 History Krill Oil 1 tab PO DAILY 07/14/16 08/31/21 History L.acidoph,Paracasei, B.lactis 1 tab PO DAILY 07/14/16 08/31/21 History [Probiotic] Multivitamins, Thera [Multivitamin] 1 tab PO DAILY 07/14/16 08/31/21 History Selenium 100 mcg PO DAILY 07/14/16 08/31/21 History Biotin [Biotin Disolve] 5,000 mcg PO DAILY 07/15/18 08/31/21 History Calcium Carbonate/Vitamin D3 1 each PO DAILY 07/15/18 08/31/21 History [Calcium 600-Vit D3 200 Tablet] Carbidopa-Levodopa ER 50-200Mg 2.5 each PO TID 07/15/18 08/31/21 History [Sinemet ER 50-200] Diclofenac Sodium [Voltaren Gel] 4 gram TOPICAL DAILY PRN 07/15/18 08/31/21 History Losartan [Cozaar] 50 mg PO DAILY 07/15/18 08/31/21 History Ubidecarenone [Co Q-10] 400 mg PO DAILY 07/15/18 08/31/21 History Cholecalciferol [Vitamin D3 (25 50 mcg PO DAILY 08/31/21 08/31/21 History Mcg = 1000 Iu)] Cyanocobalamin (Vitamin B-12) 1,000 mcg PO DAILY 08/31/21 08/31/21 History [Vitamin B-12] Donepezil [Aricept] 10 mg PO DAILY 08/31/21 08/31/21 History Gabapentin [Neurontin] 100 mg PO HS 08/31/21 08/31/21 History Glimepiride [Amaryl] 2 mg PO DAILY 08/31/21 08/31/21 History HYDROcodone/APAP 7.5-325MG [[place] 1 tab PO Q8H PRN 08/31/21 08/31/21 History 7.5-325] Magnesium 500 mg PO DAILY 08/31/21 08/31/21 History Nystatin/Triamcin 1 applic TOPICAL DAILY PRN 08/31/21 08/31/21 History [Nystatin-Triamcinolone] QUEtiapine [SEROquel] 25 mg PO BID 08/31/21 08/31/21 History Rosuvastatin Calcium [Crestor] 5 mg PO MOWE 08/31/21 08/31/21 History Stool Softner (Unknown) (Otc) 1 tab PO DAILY PRN 08/31/21 08/31/21 History Triamcinolone 0.025% Cream 1 applic TOPICAL DAILY PRN 08/31/21 08/31/21 History [Kenalog 0.025% Cream] Triamcinolone Acetonide [Nasacort] 1 spray EA NOSTRIL DAILY PRN 08/31/21 08/31/21 History metFORMIN HCL ER [Glucophage XR] 500 mg PO BID 08/31/21 08/31/21 History Allergies Allergy/AdvReac Type Severity Reaction Status Date / Time codeine AdvReac Hallucinati Verified 02/23/20 20:36 ons Physical Exam Osteopathic Statement: *. No significant issues noted on an osteopathic structural exam other than those noted in the History and Physical/Consult. Vitals: Vital Signs Temp Pulse Pulse Resp BP BP Pulse Ox 08/31/21 21:00 97.9 F 67 16 134/65 99 08/31/21 17:00 51 L 16 104/76 100 08/31/21 14:34 97.5 F L 54 L 17 120/100 100 Intake and Output 08/31/21 08/31/21 08/31/21 06:59 14:59 22:59 Other: # Voids 0 Weight 81.647 kg 81.647 kg Gen: awake, alert HEENT: normocephalic, atraumatic, good hearing acuity, moist mucous membranes Resp: good air exchange, breathing comfortably with no accessory muscle use, clear to auscultation bilaterally CVS: good distal perfusion x 4, regular rate and rhythm without murmurs GI: soft, NTTP, ND : no SPT, no CVAT, caraballo catheter not present MSK: no pitting edema, no clubbing Neuro: 5 out of 5 motor strength, no sensory deficits, cranial nerves II through XII are intact Psych: cooperative, euthymic mood Results CBC & Chem 7: 08/31/21 15:07 08/31/21 15:07 Labs: Abnormal Lab Results - Last 24 Hours (Table) 08/31/21 08/31/21 Range/Units 15:07 15:16 Chloride 109 H (98-107) mmol/L Glucose 205 H (74-99) mg/dL Total Protein 5.9 L (6.3-8.2) g/dL Albumin 3.0 L (3.5-5.0) g/dL Urine Protein Trace H (Negative) Urine Glucose (UA) 3+ H (Negative) Urine Ketones Trace H (Negative) Ur Leukocyte Esterase Moderate H (Negative) Urine WBC 20 H (0-5) /hpf Urine Bacteria Occasional H (None) /hpf Hyaline Casts 7 H (0-2) /lpf Urine Mucus Rare H (None) /hpf Thrombosis Risk Factor Assmnt - Choose All That Apply Each Factor Represents 1 point: Obesity (BMI >25) Each Risk Factor Represents 3 Points: Age 75 years or older Other congenital or acquired thrombophilia - If yes, enter type in comment: No Thrombosis Risk Factor Assessment Total Risk Factor Score: 4 Thrombosis Risk Factor Assessment Level: Moderate Risk Assessment and Plan Assessment: Syncope with convulsions versus seizure -Admit to observation, telemetry -EKG daily -Cardiology consult for AV block -Neurology consult to rule out seizures -Echocardiogram -EEG -PT/OT -Orthostatics twice a day -IV fluids -Repeat labs in the morning Parkinson's disease Dementia Hypertension Hyperlipidemia Diabetes -Home medications reviewed and reconciled Goals of care -I spoke with patient regarding her CODE STATUS, she wishes to be DO NOT RESUSCITATE/DO NOT INTUBATE, however, she would be okay with elective procedures and cases of critical status with a high likelihood of full recovery. Brief examples include being okay with elective intubation in the case of pneumonia or reversible pulmonary pathology. She would also be okay with elective cardioversion in the case of arrhythmia requiring such. She will be okay with reversing her CODE STATUS for minor procedures if needed.
[2021-08-31 23:10] LABS: Glucose,Whole Blood 310 mg/dL (75-99)
[2021-08-31] MEDS ORDERED: INSULIN DETEMIR (LEVEMIR) 100 UNIT/ML SYR SQ SCH (23:15)
[2021-09-01] MEDS: INSULIN ASPART (NovoLOG) 100 UNIT/ML VIAL SQ SCH ×6 (07:07→16:58)
[2021-09-01 07:15] LABS: Glucose,Whole Blood 51 mg/dL (75-99)
[2021-09-01 07:24] LABS: Basophils % (A) 1 %; Eosinophils # (A) 0.4 k/uL (0-0.7); Eosinophils % (A) 4 %; HCT 37.1 % (34.0-46.0); HGB 11.8 gm/dL (11.4-16.0); Lymphocytes # (A) 3.1 k/uL (1.0-4.8); Lymphocytes % (A) 35 %; MCH 30.7 pg (25.0-35.0); MCHC 31.7 g/dL (31.0-37.0); MCV 96.8 fL (80.0-100.0); Mean Platelet Volume 7.7; Monocytes # (A) 0.5 k/uL (0-1.0); Monocytes % (A) 6 %; Neutrophils # (A) 4.7 k/uL (1.3-7.7); Neutrophils % (A) 52 %; Platelet Count 198 k/uL (150-450); RBC 3.84 m/uL (3.80-5.40); RDW 13.2 % (11.5-15.5); WBC 8.9 k/uL (3.8-10.6)
[2021-09-01 07:29] LABS: Glucose,Whole Blood 55 mg/dL (75-99)
[2021-09-01 07:38] LABS: Glucose,Whole Blood 78 mg/dL (75-99)
[2021-09-01 07:39] LABS: Albumin 2.8 g/dL (3.5-5.0); Bilirubin, Delta 0.1 mg/dL (0.0-0.2); Bilirubin,Unconjugated 0.2 mg/dL (0.0-1.1); Calcium 8.2 mg/dL (8.4-10.2); Magnesium 1.9 mg/dL (1.6-2.3); Potassium 4.3 mmol/L (3.5-5.1); Total Bilirubin 0.3 mg/dL (0.2-1.3); Total Protein 5.6 g/dL (6.3-8.2)
[2021-09-01] MEDS: CYANOCOBALAMIN 500 MCG TAB PO SCH (08:25)
[2021-09-01] MEDS: LOSARTAN 50 MG TAB PO SCH (08:25)
[2021-09-01] MEDS: CHOLECALCIFEROL 25 MCG (1000 IU) TABLET PO SCH (08:25)
[2021-09-01] MEDS: CALCIUM CARB-VIT D 500 MG-5 MCG TAB PO SCH (08:25)
[2021-09-01] MEDS: ATORVASTATIN 10 MG TAB PO SCH (08:25)
[2021-09-01] MEDS: QUEtiapine 25 MG TAB PO SCH ×2 (08:25→21:31)
[2021-09-01] MEDS: INSULIN DETEMIR (LEVEMIR) 100 UNIT/ML SYR SQ SCH ×2 (08:26→21:34)
--- NOTE | 2021-09-01 08:43 | P.CRDCN ---
History of Present Illness Consult date: 09/01/21 Chief complaint: Change in mental status History of present illness: The patient is a pleasant 86-year-old female patient with a past medical history significant for diabetes and hypertension and dyslipidemia as well as Parkinson disease who was brought to the hospital with a change in mental status. She was at her usual state of health where she was eating breakfast with her daughter when suddenly she lost her consciousness and felt back into her chair. The daughter noticed that the patient was having convulsing symptoms. Ambulance was called and the patient was brought to the emergency department. She underwent a computed tomography scan of the pain and that showed only chronic changes without any acute abnormalities. Neurology is on the case at this point. Beside that the patient was found to be bradycardic and for that reason we consulted to see the patient. The patient has been maintaining heart rate in the 40s as well as the 50s. Her EKG showed sinus rhythm with second degree type I AV block. She is not on any AV karma siena agents. No thyroid a disease noted as well. The patient did not drop her heart rate pedal 40s so far. She has been maintaining good blood pressure. She denies any symptoms of chest pain or chest discomfort or shortness of breath. She denies any symptoms of heart racing or fluttering around the episode. She stated that she has no coronary artery disease or congestive heart failure or cardiac arrhythmia and never seen any globe cleaner in the past. Past Medical History Past Medical History: Diabetes Mellitus, Hypertension Additional Past Medical History / Comment(s): Parkinsons, Arthritis, diverticulitis History of Any Multi-Drug Resistant Organisms: None Reported Past Surgical History: Joint Replacement, Tonsillectomy Past Anesthesia/Blood Transfusion Reactions: No Reported Reaction Past Psychological History: No Psychological Hx Reported Smoking Status: Former smoker Past Alcohol Use History: None Reported Past Drug Use History: None Reported Medications and Allergies Home Medications Medication Instructions Recorded Confirmed Type ALPRAZolam [Xanax] 0.25 mg PO DAILY PRN 07/14/16 08/31/21 History Famotidine 40 mg PO HS 07/14/16 08/31/21 History Insulin Aspart [NovoLOG] 5 - 15 units SQ AC-TID 07/14/16 08/31/21 History Insulin Glargine [Lantus] 20 unit SQ BID 07/14/16 08/31/21 History Krill Oil 1 tab PO DAILY 07/14/16 08/31/21 History L.acidoph,Paracasei, B.lactis 1 tab PO DAILY 07/14/16 08/31/21 History [Probiotic] Multivitamins, Thera [Multivitamin] 1 tab PO DAILY 07/14/16 08/31/21 History Selenium 100 mcg PO DAILY 07/14/16 08/31/21 History Biotin [Biotin Disolve] 5,000 mcg PO DAILY 07/15/18 08/31/21 History Calcium Carbonate/Vitamin D3 1 each PO DAILY 07/15/18 08/31/21 History [Calcium 600-Vit D3 200 Tablet] Carbidopa-Levodopa ER 50-200Mg 2.5 each PO TID 07/15/18 08/31/21 History [Sinemet ER 50-200] Diclofenac Sodium [Voltaren Gel] 4 gram TOPICAL DAILY PRN 07/15/18 08/31/21 History Losartan [Cozaar] 50 mg PO DAILY 07/15/18 08/31/21 History Ubidecarenone [Co Q-10] 400 mg PO DAILY 07/15/18 08/31/21 History Cholecalciferol [Vitamin D3 (25 50 mcg PO DAILY 08/31/21 08/31/21 History Mcg = 1000 Iu)] Cyanocobalamin (Vitamin B-12) 1,000 mcg PO DAILY 08/31/21 08/31/21 History [Vitamin B-12] Donepezil [Aricept] 10 mg PO DAILY 08/31/21 08/31/21 History Gabapentin [Neurontin] 100 mg PO HS 08/31/21 08/31/21 History Glimepiride [Amaryl] 2 mg PO DAILY 08/31/21 08/31/21 History HYDROcodone/APAP 7.5-325MG [[place] 1 tab PO Q8H PRN 08/31/21 08/31/21 History 7.5-325] Magnesium 500 mg PO DAILY 08/31/21 08/31/21 History Nystatin/Triamcin 1 applic TOPICAL DAILY PRN 08/31/21 08/31/21 History [Nystatin-Triamcinolone] QUEtiapine [SEROquel] 25 mg PO BID 08/31/21 08/31/21 History Rosuvastatin Calcium [Crestor] 5 mg PO MOWE 08/31/21 08/31/21 History Stool Softner (Unknown) (Otc) 1 tab PO DAILY PRN 08/31/21 08/31/21 History Triamcinolone 0.025% Cream 1 applic TOPICAL DAILY PRN 08/31/21 08/31/21 History [Kenalog 0.025% Cream] Triamcinolone Acetonide [Nasacort] 1 spray EA NOSTRIL DAILY PRN 08/31/21 08/31/21 History metFORMIN HCL ER [Glucophage XR] 500 mg PO BID 08/31/21 08/31/21 History Allergies Allergy/AdvReac Type Severity Reaction Status Date / Time codeine AdvReac Hallucinati Verified 02/23/20 20:36 ons Physical Exam Vitals: Vital Signs Temp Pulse Pulse Pulse Resp BP BP 09/01/21 08:00 98.6 F 72 16 146/80 09/01/21 04:00 69 18 143/70 09/01/21 00:00 67 16 159/67 08/31/21 21:00 97.9 F 67 16 134/65 08/31/21 17:00 51 L 16 104/76 08/31/21 14:34 97.5 F L 54 L 17 120/100 Pulse Ox 09/01/21 08:00 97 09/01/21 04:00 96 09/01/21 00:00 97 08/31/21 21:00 99 08/31/21 17:00 100 08/31/21 14:34 100 Intake and Output 08/31/21 09/01/21 09/01/21 22:59 06:59 14:59 Other: Voiding Method Toilet Diaper # Voids 0 Weight 81.647 kg - Constitutional General appearance: no acute distress - Respiratory Respiratory: bilateral: CTA - Cardiovascular Rhythm: regular Heart sounds: normal: S1, S2 Abnormal Heart Sounds: systolic murmur Results 09/01/21 07:05 09/01/21 07:05 Cardiac Enzymes 08/31/21 08/31/21 09/01/21 Range/Units 15:07 15:16 07:05 AST 23 21 (14-36) U/L Troponin I 0.013 (0.000-0.034) ng/mL Coagulation 08/31/21 Range/Units 15:07 PT 10.5 (9.0-12.0) sec APTT 22.7 (22.0-30.0) sec CBC 08/31/21 09/01/21 Range/Units 15:07 07:05 WBC 9.2 8.9 (3.8-10.6) k/uL RBC 4.15 3.84 (3.80-5.40) m/uL Hgb 12.8 11.8 (11.4-16.0) gm/dL Hct 40.4 37.1 (34.0-46.0) % Plt Count 180 198 (150-450) k/uL Comprehensive Metabolic Panel 08/31/21 09/01/21 Range/Units 15:07 07:05 Sodium 140 140 (137-145) mmol/L Potassium 4.9 4.3 (3.5-5.1) mmol/L Chloride 109 H 111 H (98-107) mmol/L Carbon Dioxide 25 25 (22-30) mmol/L BUN 16 17 (7-17) mg/dL Creatinine 0.76 0.78 (0.52-1.04) mg/dL Glucose 205 H 50 L (74-99) mg/dL Calcium 8.5 8.2 L (8.4-10.2) mg/dL Unconjugated Bilirubin 0.2 (0.0-1.1) mg/dL AST 23 21 (14-36) U/L ALT 8 16 (4-34) U/L Alkaline Phosphatase 83 61 (38-126) U/L Total Protein 5.9 L 5.6 L (6.3-8.2) g/dL Albumin 3.0 L 2.8 L (3.5-5.0) g/dL Current Medications Generic Name Dose Route Start Last Admin Trade Name Freq PRN Reason Stop Dose Admin Acetaminophen 650 mg 08/31/21 19:35 Acetaminophen Tab 325 Mg Tab PO Q6HR PRN Mild Pain or Fever > 100.5 Hydrocodone Bitart/Acetaminophen 1 each 08/31/21 22:48 Hydrocodone/Apap 7.5-325mg 1 Each Tab PO Q8H PRN Pain Alprazolam 0.25 mg 08/31/21 22:48 Alprazolam 0.25 Mg Tab PO DAILY PRN Anxiety Atorvastatin Calcium 10 mg 09/01/21 09:00 09/01/21 08:25 Atorvastatin 10 Mg Tab PO 10 mg MOWE NAHUM Administration Calcium Carbonate 1 each 09/01/21 09:00 09/01/21 08:25 Calcium Carb-Vit D 500 Mg-5 Mcg Tab PO 1 each DAILY NAHUM Administration Carbidopa/Levodopa 2.5 each 09/01/21 09:00 09/01/21 08:34 Carbidopa-Levodopa Er 50-200mg 1 Each Tablet.Er PO 2.5 each TID NAHUM Administration Cholecalciferol 50 mcg 09/01/21 09:00 09/01/21 08:25 Cholecalciferol 25 Mcg (1000 Iu) Tablet PO 50 mcg DAILY NAHUM Administration Cyanocobalamin 1,000 mcg 09/01/21 09:00 09/01/21 08:25 Cyanocobalamin 500 Mcg Tab PO 1,000 mcg DAILY NAHUM Administration Diclofenac Sodium 4 gm 08/31/21 23:00 Diclofenac Sodium Gel 100 Gm Tube TOPICAL DAILY PRN Pain Protocol Donepezil HCl 10 mg 09/01/21 09:00 09/01/21 08:25 Donepezil 10 Mg Tab PO 10 mg DAILY NAHUM Administration Famotidine 40 mg 09/01/21 21:00 Famotidine 20 Mg Tab PO HS NAHUM Gabapentin 100 mg 09/01/21 21:00 Gabapentin 100 Mg Cap PO HS NAHUM Sodium Chloride 1,000 mls @ 20 mls/hr 08/31/21 19:00 08/31/21 21:46 Saline 0.9% IV 20 mls/hr .Q24H NAHUM Administration Insulin Aspart 0 unit 09/01/21 07:30 09/01/21 07:07 Insulin Aspart (Novolog) 100 Unit/Ml Vial SQ Not Given AC-TID [facility] Protocol Insulin Aspart 10 unit 09/01/21 07:30 09/01/21 07:07 Insulin Aspart (Novolog) 100 Unit/Ml Vial SQ Not Given AC-TID [facility] Insulin Detemir 15 unit 09/01/21 09:00 09/01/21 08:26 Insulin Detemir (Levemir) 100 Unit/Ml Syr SQ Not Given BID@0700,2100 [facility] Lorazepam 2 mg 08/31/21 19:01 Lorazepam 2 Mg/Ml Inj IV ONCE PRN Seizures Losartan Potassium 50 mg 09/01/21 09:00 09/01/21 08:25 Losartan 50 Mg Tab PO 50 mg DAILY NAHUM Administration Naloxone HCl 0.2 mg 08/31/21 19:35 Naloxone 0.4 Mg/Ml 1 Ml Vial IV Q2M PRN Opioid Reversal Quetiapine Fumarate 25 mg 09/01/21 09:00 09/01/21 08:25 Quetiapine 25 Mg Tab PO 25 mg BID NAHUM Administration Intake and Output 08/31/21 09/01/21 09/01/21 22:59 06:59 14:59 Other: Voiding Method Toilet Diaper # Voids 0 Weight 81.647 kg 09/01/21 07:05 09/01/21 07:05 Assessment and Plan Assessment: Assessment #1 syncopal episode #2 sinus bradycardia #3 AV block #4 diabetes #5 multiple comorbid conditions Plan #1 rule out high AV block. Currently the patient is in second degree type I #2 continue monitor the patient for arrhythmia/profound bradycardia #3 rule out thyroid disease. Obtain TSH and free T4 #4 follow-up on the echocardiogram #5 follow-up on the the neurology input #6 follow-up with the patient #7 avoid any AV karma siena agents #8 continue the current medical
[2021-09-01] MEDS ORDERED: CARBIDOPA-LEVODOPA ER 50-200MG 1 EACH TABLET.ER PO SCH (09:00)
[2021-09-01] MEDS ORDERED: DONEPEZIL 10 MG TAB PO SCH (09:00)
--- NOTE | 2021-09-01 11:34 | ECHOF ---
Referral Reason:syncope vs seizure, 2nd degree AVB (mob I) MEASUREMENTS -------- HEIGHT: 172.7 cm WEIGHT: 81.6 kg BP: 143/70 RVIDd: 2.6 cm (< 3.3) IVSd: 1.2 cm (0.6 - 1.1) LVIDd: 3.8 cm (3.9 - 5.3) LVPWd: 1.2 cm (0.6 - 1.1) IVSs: 1.8 cm LVIDs: 1.7 cm LVPWs: 1.6 cm Ao Diam: 2.8 cm (2.0 - 3.7) AV Cusp: 1.4 cm (1.5 - 2.6) LA Diam: 3.3 cm (2.7 - 3.8) MV E Devan: 1.06 m/s MV DecT: 122 ms MV A Devan: 1.07 m/s MV E/A Ratio: 0.99 RAP: 5.00 mmHg RVSP: 23.28 mmHg FINDINGS -------- This was a technically adequate study. The left ventricular size is normal. There is mild concentric left ventricular hypertrophy. Overa ll left ventricular systolic function is normal with, an EF between 55 - 60 %. The right ventricle is normal in size. The left atrial size is normal. The right atrial size is normal. The aortic valve is trileaflet and appears structurally normal. The mitral valve is normal. The mitral valve leaflets are mildly thickened. Mild mitral regurgita tion is present. The tricuspid valve appears structurally normal. Mild tricuspid regurgitation present. Right vent ricular systolic pressure is normal at < 35 mmHg. There is no pulmonic regurgitation present. The aortic root size is normal. Normal inferior vena cava with normal inspiratory collapse consistent with estimated right atrial pre ssure of 5 mmHg. There is a trivial pericardial effusion present. CONCLUSIONS -------- 1. The left ventricular size is normal. 2. There is mild concentric left ventricular hypertrophy. 3. Overall left ventricular systolic function is normal with, an EF between 55 - 60 %. 4. The mitral valve leaflets are mildly thickened. 5. Mild mitral regurgitation is present. 6. Mild tricuspid regurgitation present. 7. There is a trivial pericardial effusion present. SILVICULTURE PROFESSOR: Renu Gray RDCS
--- NOTE | 2021-09-01 11:36 | P.PN ---
<Sonny Kendrick - Last Filed: 09/01/21 11:14> Subjective Progress Note Date: 09/01/21 Hospital course: Patient is a very pleasant 86-year-old female with a past medical history of P arkinson's disease, hypertension, hyperlipidemia, restless leg syndrome, and type 2 insulin-dependent diabetes mellitus. She presented to the hospital on 08/31/21 with a chief complaint of loss of consciousness. Patient was witnessed by her daughter to suddenly lose consciousness falling back into her chair with convulsions of her right arm. Upon arrival to the hospital patient was seen and fully evaluated. CBC and CMP were unremarkable LFTs revealed low total protein and albumin. Patient's urinalysis was positive for leukocytes with occasional bacteria, glucose, protein, and ketones. Covid PCR was negative. Patient did have noted EKG changes. EKG revealed sinus bradycardia at 49 bpm with a second- degree type I Wenckebach AV block, this is changed from previous EKG obtained 07/14/18 which revealed only a first-degree AV block. CT head was negative for acute intercranial process however did reveal age indeterminant area of decreased potential relation within the right frontal lobe which could be related to subacute or chronic infarct, and moderate chronic small vessel ischemic changes. Patient was admitted under our services with consultation to neurology and cardiology. Physical exam: Vital signs reviewed and stable. General: Nontoxic, no distress and appears stated age. Derm: Skin warm and dry, normal coloration for ethnicity. Head: Atraumatic, normocephalic and symmetric. Eyes: EOMs intact, no lid lag, and anicteric sclera Mouth: no lip lesions, mucus membranes moist Cardiovascular: regular rate and rhythm with normal S1S2, systolic murmur present, positive posterior tibial pulses bilaterally, and cap refill < 2 seconds. Lungs: Respirations even, regular, and unlabored on room air. Lungs CTA bilaterally, no rhonchi, no rales, no wheezing, and no accessory muscle usage. Abdominal: soft, nontender to palpation, no guarding, no appreciable organomegaly Ext: ROM intact. No gross muscle atrophy, no edema, no contractures Neuro: Speech clear, face symmetrical and CN II-XII grossly intact with no noted focal neuro deficits Psych: Alert and oriented to person, place, time, and situation. Appropriate and pleasant affect. Assessment and Plan of Care: Syncope with convulsions versus seizure EKG changes with bradycardia and newly diagnosed second-degree type II AV block. -Admit to observation, telemetry -EKG daily along with continuous cardiac monitoring -Cardiology consult for new onset second-degree type I AV block -Neurology consult to rule out seizures -Echocardiogram -EEG -MRI -PT/OT -Orthostatics twice a day -IV fluids for gentle hydration -Repeat labs in the morning Parkinson's disease -Continuation of daily medication regimen with carbidopa levodopa. Dementia -Continuation of daily medication regimen with Aricept. Hypertension -Monitor vital signs and continue daily medication regimen with losartan. Hyperlipidemia -Continue daily medication regimen with atorvastatin. Insulin-dependent Diabetes mellitus -Glycemic protocol and patient to continue scheduled NovoLog with meals and Levemir twice daily along with sliding scale. Restless leg -Continue daily medication regimen with Neurontin and diclofenac. CODE STATUS: CODE STATUS, she wishes to be DO NOT RESUSCITATE/DO NOT INTUBATE, however, she would be okay with elective procedures and cases of critical status with a high likelihood of full recovery. Brief examples include being okay with elective intubation in the case of pneumonia or reversible pulmonary pathology. She would also be okay with elective cardioversion in the case of arrhythmia r equiring such. She will be okay with reversing her CODE STATUS for minor procedures if needed. DVT prophylaxis: Heparin Discussed with: patient and RN Anticipated discharge date: possibly tomorrow morning pending clinical workup and results of EEG, MRI, and echocardiogram. Anticipated discharge place: home A total of 45 minutes was spent on the care of this complex patient more than 50% of the time was spent in counseling and care coordination. Objective - Vital Signs Vital signs: Vital Signs Temp 98.6 F 09/01/21 08:00 Pulse 72 09/01/21 08:00 Resp 16 09/01/21 08:00 BP 146/80 09/01/21 08:00 Pulse Ox 97 09/01/21 08:00 Intake & Output 08/31/21 09/01/21 09/01/21 18:59 06:59 18:59 Intake Total 600 Output Total 100 150 Balance -100 450 Weight 81.647 kg 81.647 kg Intake: Oral 600 Output: Urine 100 150 Other: Voiding Method Toilet Toilet Diaper Diaper # Voids 0 - Labs CBC & Chem 7: 09/01/21 07:05 09/01/21 07:05 Labs: Abnormal Lab Results - Last 24 Hours (Table) 08/31/21 08/31/21 08/31/21 Range/Units 15:07 15:16 23:03 Chloride 109 H (98-107) mmol/L Glucose 205 H (74-99) mg/dL POC Glucose (mg/dL) 310 H (75-99) mg/dL Calcium (8.4-10.2) mg/dL Total Protein 5.9 L (6.3-8.2) g/dL Albumin 3.0 L (3.5-5.0) g/dL Urine Protein Trace H (Negative) Urine Glucose (UA) 3+ H (Negative) Urine Ketones Trace H (Negative) Ur Leukocyte Esterase Moderate H (Negative) Urine WBC 20 H (0-5) /hpf Urine Bacteria Occasional H (None) /hpf Hyaline Casts 7 H (0-2) /lpf Urine Mucus Rare H (None) /hpf 09/01/21 09/01/21 09/01/21 Range/Units 07:01 07:05 07:16 Chloride 111 H (98-107) mmol/L Glucose 50 L (74-99) mg/dL POC Glucose (mg/dL) 51 L 55 L (75-99) mg/dL Calcium 8.2 L (8.4-10.2) mg/dL Total Protein 5.6 L (6.3-8.2) g/dL Albumin 2.8 L (3.5-5.0) g/dL Urine Protein (Negative) Urine Glucose (UA) (Negative) Urine Ketones (Negative) Ur Leukocyte Esterase (Negative) Urine WBC (0-5) /hpf Urine Bacteria (None) /hpf Hyaline Casts (0-2) /lpf Urine Mucus (None) /hpf <Tonia Valentine - Last Filed: 09/01/21 20:36> Subjective Sonny Kendrick NP rendered care for this patient independently, reviewed the findings and plan as documented in the note above. I did not physically speak with or examine the patient on this date. Hold Aricept and monitor telemetry Objective - Vital Signs Vital signs: Vital Signs Temp 98.3 F 09/01/21 19:47 Pulse 66 09/01/21 19:47 Resp 16 09/01/21 19:47 BP 161/75 09/01/21 19:47 Pulse Ox 100 09/01/21 19:47 Intake & Output 09/01/21 09/01/21 09/02/21 06:59 18:59 06:59 Intake Total 918 Output Total 100 300 Balance -100 618 Weight 81.647 kg Intake: Oral 918 Output: Urine 100 300 Other: Voiding Method Toilet Toilet Diaper Diaper # Voids 0 - Labs CBC & Chem 7: 09/01/21 07:05 09/01/21 07:05 Labs: Abnormal Lab Results - Last 24 Hours (Table) 08/31/21 08/31/21 09/01/21 Range/Units 15:16 23:03 07:01 Chloride (98-107) mmol/L Glucose (74-99) mg/dL POC Glucose (mg/dL) 310 H 51 L (75-99) mg/dL Calcium (8.4-10.2) mg/dL Total Protein (6.3-8.2) g/dL Albumin (3.5-5.0) g/dL Urine Protein Trace H (Negative) Urine Glucose (UA) 3+ H (Negative) Urine Ketones Trace H (Negative) Ur Leukocyte Esterase Moderate H (Negative) Urine WBC 20 H (0-5) /hpf Urine Bacteria Occasional H (None) /hpf Hyaline Casts 7 H (0-2) /lpf Urine Mucus Rare H (None) /hpf 09/01/21 09/01/21 09/01/21 Range/Units 07:05 07:16 11:59 Chloride 111 H (98-107) mmol/L Glucose 50 L (74-99) mg/dL POC Glucose (mg/dL) 55 L 319 H (75-99) mg/dL Calcium 8.2 L (8.4-10.2) mg/dL Total Protein 5.6 L (6.3-8.2) g/dL Albumin 2.8 L (3.5-5.0) g/dL Urine Protein (Negative) Urine Glucose (UA) (Negative) Urine Ketones (Negative) Ur Leukocyte Esterase (Negative) Urine WBC (0-5) /hpf Urine Bacteria (None) /hpf Hyaline Casts (0-2) /lpf Urine Mucus (None) /hpf 12/27/21 Range/Units 16:49 Chloride (98-107) mmol/L Glucose (74-99) mg/dL POC Glucose (mg/dL) 111 H (75-99) mg/dL Calcium (8.4-10.2) mg/dL Total Protein (6.3-8.2) g/dL Albumin (3.5-5.0) g/dL Urine Protein (Negative) Urine Glucose (UA) (Negative) Urine Ketones (Negative) Ur Leukocyte Esterase (Negative) Urine WBC (0-5) /hpf Urine Bacteria (None) /hpf Hyaline Casts (0-2) /lpf Urine Mucus (None) /hpf Microbiology - Last 24 Hours (Table) 08/31/21 15:16 Urine Culture - Preliminary Urine,Voided
[2021-09-01 12:24] LABS: Glucose,Whole Blood 319 mg/dL (75-99)
--- NOTE | 2021-09-01 14:24 | P.CNNES ---
History of Present Illness Consult date: 09/01/21 Requesting physician: Neil Aldrich Reason for Consult: New onset seizure History of Present Illness: Patient is a 86-year-old right-handed female came to the hospital by ambulance yesterday at 2:02 PM for a syncopal spell versus seizure. Patient tells me that she started having irregular breathing and she just wanted to sleep and she stopped breathing for a while. Patient's daughter who was also present, witness ed the whole event. She says that patient was sitting in the chair eating breakfast, when all of a sudden she developed an episode of unresponsiveness, in which her right arm drooped, right arm shook a little, and her head tipped back. She had no response, appeared very pale, her daughter looked at her eyes, the right pupil seems to be looking to the right and the other one to the left. She checked her blood sugar was 112. They called the EMS. Patient was groggy for about 10 minutes after. There was no slurred speech or facial droop. When EMS arrived, patient was alert and oriented 4, lethargic, pale and slightly clammy. Patient's family mentioned that she was sitting at the table when she dropped her head and right arm. Right arm started shaking and she was unresponsive for a short time. She also went pale. Patient denied any chest pain or shortness of breath at that time. Patient was found to have a second- degree heart block type I. Patient is complaining of only feeling tired. Her blood pressure was 115/54, pulse rate 52, respiration 18, saturation 95%. Her vital signs on arrival blood pressure 120/100, pulse rate 54 and temperature 97.5. Computed tomography scan of the head showed no acute intracranial process. Moderate chronic small vessel ischemic change. Age indeterminate area of decreased attenuation within the right frontal lobe which may related to subacute or chronic infarct. This can be further evaluated with MRI. EKG shows sinus bradycardia with second degree AV block, Mobitz type I. Chest x-ray showed no acute process. Blood test shows normal CBC, normal electrolytes, BUN 17, creatinine 0.78. Hepatic panel is normal, TSH normal. Wen virus PCR negative. Blood test shows normal CBC, PT/PTT, normal electrolytes, glucose 205. Hepatic panel normal. TSH is normal. UA shows moderate leukocyte esterase, 2 RBC, 20 WBC, Wen virus PCR negative. Patient's blood glucose did drop to 51 this morning. Patient's hemoglobin A1c 8.4 on 05/30/2021. Patient's home medication includes multivitamin, insulin, Pepcid, Xanax 0.25 mg daily when necessary, Sinemet 50/200 mg, 2.5 tablet 3 times a day B12 1000 g orally daily, [place] 7.5, Aricept 10 mg daily, gabapentin 100 mg at bedtime, Amaryl 2 mg, metformin and Seroquel 25 mg twice a day. I checked with patient's daughter about her home medication list. Apparently she is taking Sinemet 25/100, 2.5 mg tablet 3 times a day. Patient states she has history of Parkinson's, diagnosed for last 10 years, for which she used to follow with Dr. Townsend, who moved to [place], but now she has started seeing Dr. Garcia in [place]. Patient has been using a cane or a walker since the diagnosis of Parkinson's, which gives her breakfast support to prevent falls. Patient does get home health aide that comes 3 times a week during the day, and someone is with her every night. Patient denies any problem with memory loss. Her daughter states that after patient's a year ago, she started having memory lapses, therefore was started on Aricept. Patient denies any tobacco, drinks alcohol very occasionally. She has diabetes for more than 10 years and claims her A1c is controlled. Review of Systems As mentioned in detail in HPI. Patient denies any headache, any problem with the vision, hoarseness. She does have some dizziness. Generalized weakness. No slurred speech, facial droop. No chest pain, abdominal pain, nausea vomiting diarrhea. No fever or chills. Patient has some pain in the wrists from the fall that occurred previously. No rash. All other review of systems reviewed and unremarkable. Past Medical History Past Medical History: Diabetes Mellitus, Hypertension Additional Past Medical History / Comment(s): Parkinsons, Arthritis, diverticulitis History of Any Multi-Drug Resistant Organisms: None Reported Past Surgical History: Joint Replacement, Tonsillectomy Past Anesthesia/Blood Transfusion Reactions: No Reported Reaction Past Psychological History: No Psychological Hx Reported Smoking Status: Former smoker Past Alcohol Use History: None Reported Past Drug Use History: None Reported Medications and Allergies Home Medications Medication Instructions Recorded Confirmed Type ALPRAZolam [Xanax] 0.25 mg PO DAILY PRN 07/14/16 08/31/21 History Famotidine 40 mg PO HS 07/14/16 08/31/21 History Insulin Aspart [NovoLOG] 5 - 15 units SQ AC-TID 07/14/16 08/31/21 History Insulin Glargine [Lantus] 20 unit SQ BID 07/14/16 08/31/21 History Krill Oil 1 tab PO DAILY 07/14/16 08/31/21 History L.acidoph,Paracasei, B.lactis 1 tab PO DAILY 07/14/16 08/31/21 History [Probiotic] Multivitamins, Thera [Multivitamin] 1 tab PO DAILY 07/14/16 08/31/21 History Selenium 100 mcg PO DAILY 07/14/16 08/31/21 History Biotin [Biotin Disolve] 5,000 mcg PO DAILY 07/15/18 08/31/21 History Calcium Carbonate/Vitamin D3 1 each PO DAILY 07/15/18 08/31/21 History [Calcium 600-Vit D3 200 Tablet] Diclofenac Sodium [Voltaren Gel] 4 gram TOPICAL DAILY PRN 07/15/18 08/31/21 History Losartan [Cozaar] 50 mg PO DAILY 07/15/18 08/31/21 History Ubidecarenone [Co Q-10] 400 mg PO DAILY 07/15/18 08/31/21 History Cholecalciferol [Vitamin D3 (25 50 mcg PO DAILY 08/31/21 08/31/21 History Mcg = 1000 Iu)] Cyanocobalamin (Vitamin B-12) 1,000 mcg PO DAILY 08/31/21 08/31/21 History [Vitamin B-12] Donepezil [Aricept] 10 mg PO DAILY 08/31/21 08/31/21 History Gabapentin [Neurontin] 100 mg PO HS 08/31/21 08/31/21 History Glimepiride [Amaryl] 2 mg PO DAILY 08/31/21 08/31/21 History HYDROcodone/APAP 7.5-325MG [[place] 1 tab PO Q8H PRN 08/31/21 08/31/21 History 7.5-325] Magnesium 500 mg PO DAILY 08/31/21 08/31/21 History Nystatin/Triamcin 1 applic TOPICAL DAILY PRN 08/31/21 08/31/21 History [Nystatin-Triamcinolone] QUEtiapine [SEROquel] 25 mg PO BID 08/31/21 08/31/21 History Rosuvastatin Calcium [Crestor] 5 mg PO MOWE 08/31/21 08/31/21 History Stool Softner (Unknown) (Otc) 1 tab PO DAILY PRN 08/31/21 08/31/21 History Triamcinolone 0.025% Cream 1 applic TOPICAL DAILY PRN 08/31/21 08/31/21 History [Kenalog 0.025% Cream] Triamcinolone Acetonide [Nasacort] 1 spray EA NOSTRIL DAILY PRN 08/31/21 08/31/21 History metFORMIN HCL ER [Glucophage XR] 500 mg PO BID 08/31/21 08/31/21 History Allergies Allergy/AdvReac Type Severity Reaction Status Date / Time codeine AdvReac Hallucinati Verified 02/23/20 20:36 ons Physical Examination - Vital Signs Vital Signs: Vital Signs Temp Pulse Pulse Pulse Resp BP BP 09/01/21 08:00 98.6 F 72 16 146/80 09/01/21 04:00 69 18 143/70 09/01/21 00:00 67 16 159/67 08/31/21 21:00 97.9 F 67 16 134/65 08/31/21 17:00 51 L 16 104/76 08/31/21 14:34 97.5 F L 54 L 17 120/100 Pulse Ox 09/01/21 08:00 97 09/01/21 04:00 96 09/01/21 00:00 97 08/31/21 21:00 99 08/31/21 17:00 100 08/31/21 14:34 100 Intake and Output 08/31/21 09/01/21 09/01/21 22:59 06:59 14:59 Intake Total 600 Output Total 100 150 Balance -100 450 Intake: Oral 600 Output: Urine 100 150 Other: Voiding Method Toilet Toilet Diaper Diaper # Voids 0 Weight 81.647 kg Patient is an elderly female, very pleasant, in no acute distress. Patient is alert awake oriented to time place and person. She knows it is August 2021 and that she is in [facility] and name of the current president. Speech and language functions are normal. Attention, concentration and fund of knowledge is adequate. Patient has negative visuospatial apraxia. Mildly positive bilateral palmomental reflex. Detailed testing deferred. On cranial examination, pupils are round and reacting to light, visual gorman are full on confrontation, extraocular muscles are intact with no nystagmus. Face is symmetric, tongue protrudes to the midline. Palatal elevation and sensation normal, hearing and shoulder shrug normal, facial sensation normal. Shoulder shrug normal. On muscle strength testing, there is no pronator drift and the strength is normal in arms and legs distally and proximally. Deep tendon reflexes are 1-1+ and plantars downgoing. Sensory to touch is equal with no neglect. Cerebellar function showed no ataxia for puoccg-id-erlu testing. No dysdiadochokinesia. Tone is very mildly increased and bulk of muscles normal. No tremors at rest. No tremors with intention or posture. Gait deferred. On general examination, there is no carotid bruit or murmur, S1-S2 audible. Abdomen is soft nontender. Chest is clear. Peripheral pulses are present. No edema. Results - Laboratory Findings CBC and BMP: 09/01/21 07:05 09/01/21 07:05 Abnormal Lab Findings: Abnormal Labs 08/31/21 08/31/21 08/31/21 15:07 15:16 23:03 Chloride 109 H Glucose 205 H POC Glucose (mg/dL) 310 H Calcium Total Protein 5.9 L Albumin 3.0 L Urine Protein Trace H Urine Glucose (UA) 3+ H Urine Ketones Trace H Ur Leukocyte Esterase Moderate H Urine WBC 20 H Urine Bacteria Occasional H Hyaline Casts 7 H Urine Mucus Rare H 09/01/21 09/01/21 09/01/21 07:01 07:05 07:16 Chloride 111 H Glucose 50 L POC Glucose (mg/dL) 51 L 55 L Calcium 8.2 L Total Protein 5.6 L Albumin 2.8 L Urine Protein Urine Glucose (UA) Urine Ketones Ur Leukocyte Esterase Urine WBC Urine Bacteria Hyaline Casts Urine Mucus Assessment and Plan Assessment: * Convulsive syncope versus seizure. Patient has heart block type II, therefore syncope most likely a possibility. * Diabetes, with recent episode of hypoglycemia in the hospital. * Hypertension * Reported diagnosis of Parkinson's, well controlled * Obesity. Plan: * Patient had undergone EEG, which we will review the results. * Patient to undergo MRI of the brain and MRA of the neck. * Cardiology is also on the case for heart block. * Continue telemetry monitoring. * Continue same dose of Sinemet 25/100, 2.5 tablets 3 times a day. * Aricept has to be used with caution with heart block. However she has been on Aricept for a year, therefore doubt is the prime cause of that issue. * Neurology will continue to follow. Thank you for the consult. Time with Patient: Greater than 30
[2021-09-01] MEDS: CARBIDOPA-LEVODOPA ER 25-100MG 1 EACH TABLET.ER PO SCH ×2 (17:02→21:35)
--- NOTE | 2021-09-01 17:05 | EEG ---
ELECTROENCEPHALOGRAM REPORT DATE OF SERVICE: 09/01/2021 PREAMBLE: This is an 86-year-old female with syncopal spell versus seizure. EEG FINDINGS: This is a 21 channel digital EEG recorded with video competent, utilizing 10/20 international system of referential and bipolar montages. Background consists of moderately well-developed and regulated, mixed frequencies of 7 hertz theta, with 8-9 hertz alpha and some fast frequency beta activity seen in bihemispheric region. Background does not seem to be clearly reactive to eye opening or closing. Photic driving response was not seen. Some drowsiness was seen with appearance of lower voltage theta activity in bihemispheric region. Deeper stages of sleep were not seen. No focal or generalized epileptiform activity was seen. IMPRESSION: This is a mildly abnormal EEG due to minimal background slowing. This is suggestive of generalized cerebral dysfunction which can be seen with the various causes of encephalopathy or medication effect. No epileptiform activity was seen. MMODL / IJN: [id number] /
[2021-09-01 17:10] LABS: Glucose,Whole Blood 111 mg/dL (75-99)
[2021-09-01 20:28] LABS: Glucose,Whole Blood 245 mg/dL (75-99)
[2021-09-01] MEDS: SODIUM CHLORIDE 0.9% 1,000 ML IV SCH (21:30)
[2021-09-01] MEDS: FAMOTIDINE 20 MG TAB PO SCH (21:31)
[2021-09-01] MEDS: GABAPENTIN 100 MG CAP PO SCH (21:31)
[2021-09-01] MEDS: HEPARIN SODIUM,PORCINE/PF 5,000 UNIT/0.5 ML SYRINGE SQ SCH (21:33)
[2021-09-02 02:28] LABS: Glucose,Whole Blood 112 mg/dL (75-99)
[2021-09-02 06:55] LABS: Glucose,Whole Blood 93 mg/dL (75-99)
[2021-09-02] MEDS: INSULIN ASPART (NovoLOG) 100 UNIT/ML VIAL SQ SCH ×6 (07:03→17:10)
[2021-09-02] MEDS: INSULIN DETEMIR (LEVEMIR) 100 UNIT/ML SYR SQ SCH ×2 (08:31→21:26)
[2021-09-02] MEDS: HEPARIN SODIUM,PORCINE/PF 5,000 UNIT/0.5 ML SYRINGE SQ SCH ×2 (08:39→21:25)
[2021-09-02] MEDS: CARBIDOPA-LEVODOPA ER 25-100MG 1 EACH TABLET.ER PO SCH ×3 (08:39→21:25)
[2021-09-02] MEDS: CYANOCOBALAMIN 500 MCG TAB PO SCH (08:40)
[2021-09-02] MEDS: LOSARTAN 50 MG TAB PO SCH (08:40)
[2021-09-02] MEDS: QUEtiapine 25 MG TAB PO SCH ×2 (08:40→21:25)
[2021-09-02] MEDS: CHOLECALCIFEROL 25 MCG (1000 IU) TABLET PO SCH (08:40)
[2021-09-02] MEDS: CALCIUM CARB-VIT D 500 MG-5 MCG TAB PO SCH (08:40)
--- NOTE | 2021-09-02 10:22 | P.PN ---
Subjective Progress Note Date: 09/02/21 Principal diagnosis: AV block The patient is an 86-year-old female patient with a past medical history significant for diabetes as well as multiple comorbid conditions who was adm itted to the hospital with change in mental status. She was found to be in AV block, second-degree type I. We consulted to see the patient for that reason. Beside that neurology was consulted to rule out any acute neurologic event. The patient was seen this morning. She states she is feeling better. She is alert and oriented 3 be she has been maintaining good blood pressure with her heart rate is in the 40s. She continues to be in second-degree type I AV block. Neurologic violation continues and the patient is in process of having an MRI of the brain. The echo showed normal left ventricle systolic function. TSH came in to be within normal limits. Objective - Vital Signs Vital signs: Vital Signs Temp 98 F 09/02/21 08:00 Pulse 64 09/02/21 08:00 Resp 16 09/02/21 08:00 BP 134/56 09/02/21 08:00 Pulse Ox 97 09/02/21 08:00 Intake & Output 09/01/21 09/02/21 09/02/21 18:59 06:59 18:59 Intake Total 918 Output Total 300 300 Balance 618 -300 Intake: Oral 918 Output: Urine 300 300 Other: Voiding Method Toilet Diaper # Voids 1 - Constitutional General appearance: Present: no acute distress - Respiratory Respiratory: bilateral: diminished - Cardiovascular Rhythm: regular Heart sounds: normal: S1, S2 - Labs CBC & Chem 7: 09/01/21 07:05 09/01/21 07:05 Labs: Abnormal Lab Results - Last 24 Hours (Table) 09/01/21 09/01/21 09/01/21 Range/Units 11:59 16:49 20:19 POC Glucose (mg/dL) 319 H 111 H 245 H (75-99) mg/dL 09/02/21 Range/Units 02:26 POC Glucose (mg/dL) 112 H (75-99) mg/dL Microbiology - Last 24 Hours (Table) 08/31/21 15:16 Urine Culture - Preliminary Urine,Voided Assessment and Plan Assessment: Assessment #1 syncopal episode #2 sinus bradycardia #3 AV block #4 diabetes #5 multiple comorbid conditions Plan #1 rule out high AV block. Currently the patient is in second degree type I #2 continue monitor the patient for arrhythmia/profound bradycardia #3 thyroid disease was ruled out #4 acute coronary event was ruled out #5 await for complete neurologic evaluation #6 she might benefit from permanent pacemaker if the neurology evaluation came in to be unremarkable
[2021-09-02 11:35] LABS: Glucose,Whole Blood 139 mg/dL (75-99)
--- NOTE | 2021-09-02 15:00 | P.PN ---
<Sonny Kendrick - Last Filed: 09/02/21 14:53> Subjective Progress Note Date: 09/02/21 Hospital course: Patient is a very pleasant 86-year-old female with a past medical history of P arkinson's disease, hypertension, hyperlipidemia, restless leg syndrome, and type 2 insulin-dependent diabetes mellitus. She presented to the hospital on 08/31/21 with a chief complaint of loss of consciousness. Patient was witnessed by her daughter to suddenly lose consciousness falling back into her chair with convulsions of her right arm. Upon arrival to the hospital patient was seen and fully evaluated. CBC and CMP were unremarkable LFTs revealed low total protein and albumin. Patient's urinalysis was positive for leukocytes with occasional bacteria, glucose, protein, and ketones. Covid PCR was negative. Patient did have noted EKG changes. EKG revealed sinus bradycardia at 49 bpm with a second- degree type I Wenckebach AV block, this is changed from previous EKG obtained 07/14/18 which revealed only a first-degree AV block. CT head was negative for acute intercranial process however did reveal age indeterminant area of decreased potential relation within the right frontal lobe which could be related to subacute or chronic infarct, and moderate chronic small vessel ischemic changes. Patient was admitted under our services with consultation to neurology and cardiology. Physical exam: Patient seen and fully evaluated at bedside this morning. Patient sitting up in chair and reports feeling great this morning. She denies having any headache, lightheadedness, dizziness, chest pain, palpitations, or shortness of breath. On night monitor, patient remains in second-degree type I AV block. Morning labs reviewed. CBC and CMP were unremarkable. TSH 3.940. Vital signs reviewed and stable. General: Nontoxic, no distress and appears stated age. Derm: Skin warm and dry, normal coloration for ethnicity. Head: Atraumatic, normocephalic and symmetric. Eyes: EOMs intact, no lid lag, and anicteric sclera Mouth: no lip lesions, mucus membranes moist Cardiovascular: regular rate and rhythm with normal S1S2, systolic murmur present, positive posterior tibial pulses bilaterally, and cap refill < 2 seconds. Lungs: Respirations even, regular, and unlabored on room air. Lungs CTA bilaterally, no rhonchi, no rales, no wheezing, and no accessory muscle usage. Abdominal: soft, nontender to palpation, no guarding, no appreciable organomegaly Ext: ROM intact. No gross muscle atrophy, no edema, no contractures Neuro: Speech clear, face symmetrical and CN II-XII grossly intact with no noted focal neuro deficits Psych: Alert and oriented to person, place, time, and situation. Appropriate and pleasant affect. Assessment and Plan of Care: Syncope with convulsions versus seizure EKG changes with bradycardia and newly diagnosed second-degree type I AV block. Symptomatic bradycardia -Admit to observation, telemetry -EKG daily along with continuous cardiac monitoring -Cardiology following, appreciate further recommendations. May consider pacemaker placement for symptomatic bradycardia if no abnormal neurological findings. -Neurology following, appreciate further recommendations. -Echocardiogram revealing a normal EF between 55 and 60% with no significant valvular abnormalities. -MRI to be completed this afternoon. -PT/OT -Orthostatics twice a day -Repeat labs in the morning -Aricept discontinued Parkinson's disease -Continuation of daily medication regimen with carbidopa levodopa. Dementia -Aricept discontinued, adverse reaction of Aricept can be heart block Hypertension -Monitor vital signs and continue daily medication regimen with losartan. Hyperlipidemia -Continue daily medication regimen with atorvastatin. Insulin-dependent Diabetes mellitus -Glycemic protocol and patient to continue scheduled NovoLog with meals and Levemir twice daily along with sliding scale. Restless leg -Continue daily medication regimen with Neurontin and diclofenac. CODE STATUS: CODE STATUS, she wishes to be DO NOT RESUSCITATE/DO NOT INTUBATE, however, she would be okay with elective procedures and cases of critical status with a high likelihood of full recovery. Brief examples include being okay with elective intubation in the case of pneumonia or reversible pulmonary pathology. She would also be okay with elective cardioversion in the case of arrhythmia requiring such. She will be okay with reversing her CODE STATUS for minor procedures if needed. DVT prophylaxis: Heparin Discussed with: patient and RN Anticipated discharge date: possibly tomorrow morning pending clinical workup and results of EEG, MRI, and echocardiogram. Anticipated discharge place: home A total of 45 minutes was spent on the care of this complex patient more than 50% of the time was spent in counseling and care coordination. Objective - Vital Signs Vital signs: Vital Signs Temp 97.9 F 09/02/21 04:00 Pulse 58 L 09/02/21 04:00 Resp 16 09/02/21 04:00 BP 165/91 09/02/21 04:00 Pulse Ox 100 09/02/21 04:00 Intake & Output 09/01/21 09/02/21 09/02/21 18:59 06:59 18:59 Intake Total 918 Output Total 300 Balance 618 Intake: Oral 918 Output: Urine 300 Other: Voiding Method Toilet Diaper # Voids 1 - Labs CBC & Chem 7: 09/01/21 07:05 09/01/21 07:05 Labs: Abnormal Lab Results - Last 24 Hours (Table) 09/01/21 09/01/21 09/01/21 Range/Units 11:59 16:49 20:19 POC Glucose (mg/dL) 319 H 111 H 245 H (75-99) mg/dL 09/02/21 Range/Units 02:26 POC Glucose (mg/dL) 112 H (75-99) mg/dL Microbiology - Last 24 Hours (Table) 08/31/21 15:16 Urine Culture - Preliminary Urine,Voided <Tonia Valentine - Last Filed: 09/02/21 17:53> Subjective Sonny Kendrick NP rendered care for this patient independently, reviewed the findings and plan as documented in the note above. I did not physically speak w ith or examine the patient on this date. Objective - Vital Signs Vital signs: Vital Signs Temp 98 F 09/02/21 08:00 Pulse 72 09/02/21 16:00 Resp 16 09/02/21 16:00 BP 182/72 09/02/21 16:00 Pulse Ox 99 09/02/21 16:00 Intake & Output 09/01/21 09/02/21 09/02/21 18:59 06:59 18:59 Intake Total 918 240 Output Total 300 700 Balance 618 -460 Intake: Oral 918 240 Output: Urine 300 700 Other: Voiding Method Toilet Toilet Diaper Diaper # Voids 1 - Labs CBC & Chem 7: 09/01/21 07:05 09/01/21 07:05 Labs: Abnormal Lab Results - Last 24 Hours (Table) 09/01/21 09/02/21 09/02/21 Range/Units 20:19 02:26 11:34 POC Glucose (mg/dL) 245 H 112 H 139 H (75-99) mg/dL 09/02/21 Range/Units 17:01 POC Glucose (mg/dL) 251 H (75-99) mg/dL Microbiology - Last 24 Hours (Table) 08/31/21 15:16 Urine Culture - Final Urine,Voided
[2021-09-02 17:02] LABS: Glucose,Whole Blood 251 mg/dL (75-99)
--- NOTE | 2021-09-02 19:01 | P.PN ---
Subjective Progress Note Date: 09/02/21 Patient was seen for a follow-up. Patient sitting in the wheelchair, going for MRI. Offers no complaints, wants to go home. No further syncopal versus seizure type spells. Objective - Vital Signs Vital signs: Vital Signs Temp 98 F 09/02/21 08:00 Pulse 65 09/02/21 12:00 Resp 16 09/02/21 12:00 BP 164/71 09/02/21 12:00 Pulse Ox 97 09/02/21 12:00 Intake & Output 09/01/21 09/02/21 09/02/21 18:59 06:59 18:59 Intake Total 918 Output Total 300 300 Balance 618 -300 Intake: Oral 918 Output: Urine 300 300 Other: Voiding Method Toilet Toilet Diaper Diaper # Voids 1 - Exam Mental status, speech and language functions are normal. Muscle strength is normal. - Labs CBC & Chem 7: 09/01/21 07:05 09/01/21 07:05 Labs: Abnormal Lab Results - Last 24 Hours (Table) 09/01/21 09/01/21 09/02/21 Range/Units 16:49 20:19 02:26 POC Glucose (mg/dL) 111 H 245 H 112 H (75-99) mg/dL 09/02/21 Range/Units 11:34 POC Glucose (mg/dL) 139 H (75-99) mg/dL Microbiology - Last 24 Hours (Table) 08/31/21 15:16 Urine Culture - Final Urine,Voided Assessment and Plan Assessment: * Convulsive syncope versus seizure. Patient has heart block type II, therefore syncope most likely a possibility. * Diabetes, with recent episode of hypoglycemia in the hospital. * Hypertension * Reported diagnosis of Parkinson's, well controlled * Obesity. Plan: * Patient's EEG showed mildly abnormal due to minimal background slowing. This is suggestive of generalized cerebral dysfunction, which may be seen with various causes of encephalopathy or medication effect. No epileptiform activity was seen. * MRI of the brain, and MRA of neck are just completed. On my review both are normal. Official radiology report pending. * Cardiology is also on the case for heart block. * Telemetry monitoring shows second-degree heart block type I and heart rates went down to 30s. * Continue same dose of Sinemet 25/100, 2.5 tablets 3 times a day. * Aricept has to be used with caution with heart block. However she has been on Aricept for a year, therefore doubt is the prime cause of that issue. * Neurologically clear. Would defer further management to cardiology.
[2021-09-02 20:06] LABS: Glucose,Whole Blood 135 mg/dL (75-99)
[2021-09-02] MEDS: FAMOTIDINE 20 MG TAB PO SCH (21:25)
[2021-09-02] MEDS: GABAPENTIN 100 MG CAP PO SCH (21:25)
[2021-09-02] MEDS: SODIUM CHLORIDE 0.9% 1,000 ML IV SCH (22:57)
--- NOTE | 2021-09-03 03:11 | MR ---
EXAMINATION TYPE: MR brain wo/w mraneck wo/wcon DATE OF EXAM: 09/02/2021 COMPARISON: HISTORY: CT concerns of subacute area of ischemia CONTRAST: Standard multiplanar, multisequence MRI departmental protocol images were obtained without contrast a nd with 8 mL intravenous Gadavist gadolinium contrast. There is cerebral cortical atrophy. On the T2 and FLAIR images there is coalescent patchy area of inc reased signal in the periventricular white matter. There are areas that measure up to 2 cm in thickne ss. There is also some gyriform increased signal in the cortex of the right posterior frontal lobe. V entricles have fairly normal size. The brainstem is intact. There is no mass effect nor midline shift . There is no evidence for intracranial hemorrhage. The orbits appear intact. Contrast images of the brain show no pathologic enhancement. There is normal enhancement of the venou s sinuses. There is arterial flow demonstrated in the anterior middle and posterior cerebral arteries . The corpus callosum is intact. Sella turcica is intact. IMPRESSION: Cerebral mild atrophy. Patchy white matter signal changes probably due to microvascular ischemia. The re is gyriform cortical increased signal right posterior frontal lobe suggestive of infarct. MR angiogram neck. There is arterial flow in the common internal and external carotid arteries bilaterally. There is art erial flow in both vertebral arteries. There is arterial flow in the vertebrobasilar artery system. T here is wide patency of the carotid artery bifurcations. There is no evidence of stenosis. No evidenc e of any significant plaque formation. IMPRESSION: Normal MR angiography of the neck. No evidence of stenosis.
[2021-09-03 07:02] LABS: Glucose,Whole Blood 143 mg/dL (75-99)
[2021-09-03] MEDS: INSULIN ASPART (NovoLOG) 100 UNIT/ML VIAL SQ SCH ×6 (07:08→17:21)
[2021-09-03 08:35] LABS: HGB 12.2 gm/dL (11.4-16.0); MCH 30.5 pg (25.0-35.0); MCHC 32.1 g/dL (31.0-37.0); MCV 95.1 fL (80.0-100.0); Mean Platelet Volume 7.3; Platelet Count 194 k/uL (150-450); RDW 13.5 % (11.5-15.5); WBC 6.3 k/uL (3.8-10.6)
[2021-09-03] MEDS: INSULIN DETEMIR (LEVEMIR) 100 UNIT/ML SYR SQ SCH ×2 (08:38→20:52)
[2021-09-03] MEDS: CARBIDOPA-LEVODOPA ER 25-100MG 1 EACH TABLET.ER PO SCH ×3 (08:45→20:52)
[2021-09-03] MEDS: CYANOCOBALAMIN 500 MCG TAB PO SCH (08:45)
[2021-09-03] MEDS: HEPARIN SODIUM,PORCINE/PF 5,000 UNIT/0.5 ML SYRINGE SQ SCH ×2 (08:45→20:52)
[2021-09-03] MEDS: ATORVASTATIN 10 MG TAB PO SCH (08:46)
[2021-09-03] MEDS: CHOLECALCIFEROL 25 MCG (1000 IU) TABLET PO SCH (08:46)
[2021-09-03] MEDS: LOSARTAN 50 MG TAB PO SCH (08:46)
[2021-09-03] MEDS: CALCIUM CARB-VIT D 500 MG-5 MCG TAB PO SCH (08:46)
[2021-09-03] MEDS: QUEtiapine 25 MG TAB PO SCH ×2 (08:46→20:52)
[2021-09-03 09:07] LABS: Albumin 2.9 g/dL (3.5-5.0); Calcium 8.9 mg/dL (8.4-10.2); Magnesium 1.8 mg/dL (1.6-2.3); Potassium 4.3 mmol/L (3.5-5.1); Total Bilirubin 0.6 mg/dL (0.2-1.3)
--- NOTE | 2021-09-03 09:31 | P.PN ---
Subjective Progress Note Date: 09/03/21 Principal diagnosis: AV block The patient is an 86-year-old female patient with a past medical history significant for diabetes as well as multiple comorbid conditions who was adm itted to the hospital with change in mental status. She was found to be in AV block, second-degree type I. We consulted to see the patient for that reason. The patient was seen this morning. She stated that she is feeling better. She underwent yesterday and MRA and that came in to be overall unremarkable. Hemodynamically she has been maintaining heart rate in the 50s. Her pressure has been within normal limits. The echo showed normal left ventricle systolic function. I am going to touch base her case with the neurology team and if they feel that her event was not related to a TIA/CVA in this case I want to discuss with her the possible need for permanent pacemaker either during this admission or as an outpatient. The patient anyway would like to think about it at this point. Objective - Vital Signs Vital signs: Vital Signs Temp 97.5 F L 09/03/21 08:00 Pulse 59 L 09/03/21 08:00 Resp 16 09/03/21 08:00 BP 108/65 09/03/21 08:00 Pulse Ox 97 09/03/21 08:00 Intake & Output 09/02/21 09/03/21 09/03/21 18:59 06:59 18:59 Intake Total 480 118 Output Total 700 300 Balance -220 -182 Intake: Oral 480 118 Output: Urine 700 300 Other: Voiding Method Toilet Diaper # Voids 1 1 - Constitutional General appearance: Present: no acute distress - Respiratory Respiratory: bilateral: CTA - Cardiovascular Rhythm: regular Heart sounds: normal: S1, S2 - Labs CBC & Chem 7: 09/03/21 08:22 09/03/21 08:22 Labs: Abnormal Lab Results - Last 24 Hours (Table) 09/02/21 09/02/21 09/02/21 Range/Units 11:34 17:01 20:03 Sodium (137-145) mmol/L Glucose (74-99) mg/dL POC Glucose (mg/dL) 139 H 251 H 135 H (75-99) mg/dL Total Protein (6.3-8.2) g/dL Albumin (3.5-5.0) g/dL 09/03/21 09/03/21 Range/Units 07:00 08:22 Sodium 136 L (137-145) mmol/L Glucose 153 H (74-99) mg/dL POC Glucose (mg/dL) 143 H (75-99) mg/dL Total Protein 6.0 L (6.3-8.2) g/dL Albumin 2.9 L (3.5-5.0) g/dL Microbiology - Last 24 Hours (Table) 08/31/21 15:16 Urine Culture - Final Urine,Voided Assessment and Plan Assessment: Assessment #1 syncopal episode #2 sinus bradycardia #3 AV block, second degree,1 #4 diabetes #5 multiple comorbid conditions Plan #1 the MRA of the brain came in to be unremarkable #2 the patient has been maintaining heart rate in the 50s and normal blood pressure #3 possible need for permanent pacemaker either during this admission or as an outpatient #4 follow-up with the patient
--- NOTE | 2021-09-03 11:20 | P.PN ---
<Sonny Kendrick - Last Filed: 09/03/21 15:18> Subjective Progress Note Date: 09/03/21 Hospital course: Patient is a very pleasant 86-year-old female with a past medical history of P arkinson's disease, hypertension, hyperlipidemia, restless leg syndrome, and type 2 insulin-dependent diabetes mellitus. She presented to the hospital on 08/31/21 with a chief complaint of loss of consciousness. Patient was witnessed by her daughter to suddenly lose consciousness falling back into her chair with convulsions of her right arm. Upon arrival to the hospital patient was seen and fully evaluated. CBC and CMP were unremarkable LFTs revealed low total protein and albumin. Patient's urinalysis was positive for leukocytes with occasional bacteria, glucose, protein, and ketones. Covid PCR was negative. Patient did have noted EKG changes. EKG revealed sinus bradycardia at 49 bpm with a second- degree type I Wenckebach AV block, this is changed from previous EKG obtained 07/14/18 which revealed only a first-degree AV block. CT head was negative for acute intercranial process however did reveal age indeterminant area of decreased potential relation within the right frontal lobe which could be related to subacute or chronic infarct, and moderate chronic small vessel ischemic changes. Patient was admitted under our services with consultation to neurology and cardiology. Physical exam: Patient seen and fully evaluated at bedside this morning. Patient resting in bed this morning. She reports she did not sleep well last night. States she feels a little more tired than usual. Patient otherwise denies having any headache, lightheadedness, dizziness, chest pain, palpitations, or shortness of breath. On agile scrum coach, patient remains in bradycardic rhythm with second- degree type I AV block. morning labs reviewed with CBC and CMP unremarkable. Discussed with Dr. Aranda, telecommunications officer, who reports tentative plans for likely pacemaker placement tomorrow morning. Vital signs reviewed and stable. General: Nontoxic, no distress and appears stated age. Derm: Skin warm and dry, normal coloration for ethnicity. Head: Atraumatic, normocephalic and symmetric. Eyes: EOMs intact, no lid lag, and anicteric sclera Mouth: no lip lesions, mucus membranes moist Cardiovascular: regular rate and rhythm with normal S1S2, systolic murmur present, positive posterior tibial pulses bilaterally, and cap refill < 2 seconds. Lungs: Respirations even, regular, and unlabored on room air. Lungs CTA bilaterally, no rhonchi, no rales, no wheezing, and no accessory muscle usage. Abdominal: soft, nontender to palpation, no guarding, no appreciable organomegaly Ext: ROM intact. No gross muscle atrophy, no edema, no contractures Neuro: Speech clear, face symmetrical and CN II-XII grossly intact with no noted focal neuro deficits Psych: Alert and oriented to person, place, time, and situation. Appropriate and pleasant affect. Assessment and Plan of Care: Syncope with convulsions versus seizure EKG changes with bradycardia and newly diagnosed second-degree type I AV block. Symptomatic bradycardia -Admit to observation, telemetry -EKG daily along with continuous cardiac monitoring -Cardiology following, appreciate further recommendations. May consider pacemaker placement for symptomatic bradycardia if no abnormal neurological findings. -Neurology following, appreciate further recommendations. -Echocardiogram revealing a normal EF between 55 and 60% with no significant valvular abnormalities. -MRI to be completed this afternoon. -PT/OT -Orthostatics twice a day -Repeat labs in the morning -Aricept discontinued Parkinson's disease -Continuation of daily medication regimen with carbidopa levodopa. Dementia -Aricept discontinued, adverse reaction of Aricept can be heart block Hypertension -Monitor vital signs and continue daily medication regimen with losartan. Hyperlipidemia -Continue daily medication regimen with atorvastatin. Insulin-dependent Diabetes mellitus -Glycemic protocol and patient to continue scheduled NovoLog with meals and Levemir twice daily along with sliding scale. Restless leg -Continue daily medication regimen with Neurontin and diclofenac. CODE STATUS: CODE STATUS, she wishes to be DO NOT RESUSCITATE/DO NOT INTUBATE, however, she would be okay with elective procedures and cases of critical status with a high likelihood of full recovery. Brief examples include being okay with elective intubation in the case of pneumonia or reversible pulmonary pathology. She would also be okay with elective cardioversion in the case of arrhythmia requiring such. She will be okay with reversing her CODE STATUS for minor procedures if needed. DVT prophylaxis: Heparin Discussed with: Patient and RN, called patient's daughter-Liz with no answer and called son- an updated him on plan of care. Anticipated discharge date: pending placement of pacemaker. Likely discharge on Wednesday. Anticipated discharge place: home A total of 45 minutes was spent on the care of this complex patient more than 50% of the time was spent in counseling and care coordination. Objective - Vital Signs Vital signs: Vital Signs Temp 97.5 F L 09/03/21 08:00 Pulse 59 L 09/03/21 08:00 Resp 16 09/03/21 08:00 BP 108/65 09/03/21 08:00 Pulse Ox 97 09/03/21 08:00 Intake & Output 09/02/21 09/03/21 09/03/21 18:59 06:59 18:59 Intake Total 480 118 Output Total 700 300 Balance -220 -182 Intake: Oral 480 118 Output: Urine 700 300 Other: Voiding Method Toilet Toilet Diaper Diaper # Voids 1 1 - Labs CBC & Chem 7: 09/03/21 08:22 09/03/21 08:22 Labs: Abnormal Lab Results - Last 24 Hours (Table) 09/02/21 09/02/21 09/02/21 Range/Units 11:34 17:01 20:03 Sodium (137-145) mmol/L Glucose (74-99) mg/dL POC Glucose (mg/dL) 139 H 251 H 135 H (75-99) mg/dL Total Protein (6.3-8.2) g/dL Albumin (3.5-5.0) g/dL 09/03/21 09/03/21 Range/Units 07:00 08:22 Sodium 136 L (137-145) mmol/L Glucose 153 H (74-99) mg/dL POC Glucose (mg/dL) 143 H (75-99) mg/dL Total Protein 6.0 L (6.3-8.2) g/dL Albumin 2.9 L (3.5-5.0) g/dL Microbiology - Last 24 Hours (Table) 08/31/21 15:16 Urine Culture - Final Urine,Voided <Tonia Valentine - Last Filed: 09/03/21 18:18> Subjective Patient seen and examined independently. Patient was also seen by Sonny Kendrick NP and case was discussed. I am in agreement with subjective, physical exam, assessment and plan as written above and amended below. Discussed with patient that Aricept can sometimes cause AV karma block that cardiology is more concerned that she may need a permanent pacemaker. She states that if they think she needs a pacemaker she would be in agreement with that. General: non toxic, no distress, appears at stated age Derm: warm, dry Head: atraumatic, normocephalic, symmetric Eyes: EOMI, no lid lag, anicteric sclera Mouth: no lip lesion, mucus membranes moist Cardiovascular: S1S2 reg, with systolic ejection murmur, positive posterior tibial pulse bilateral, Lungs: Decreased bs bilateral, no rhonchi, no rales , no accessory muscle use Psych: Alert, oriented, appropriate affect Objective - Vital Signs Vital signs: Vital Signs Temp 97.5 F L 09/03/21 08:00 Pulse 67 09/03/21 16:00 Resp 16 09/03/21 16:00 BP 135/60 09/03/21 16:00 Pulse Ox 98 09/03/21 16:00 Intake & Output 09/02/21 09/03/21 09/03/21 18:59 06:59 18:59 Intake Total 480 354 Output Total 700 300 Balance -220 54 Intake: Oral 480 354 Output: Urine 700 300 Other: Voiding Method Toilet Toilet Diaper Diaper # Voids 1 3 - Labs CBC & Chem 7: 09/03/21 08:22 09/03/21 08:22 Labs: Abnormal Lab Results - Last 24 Hours (Table) 09/02/21 09/03/21 09/03/21 Range/Units 20:03 07:00 08:22 Sodium 136 L (137-145) mmol/L Glucose 153 H (74-99) mg/dL POC Glucose (mg/dL) 135 H 143 H (75-99) mg/dL Total Protein 6.0 L (6.3-8.2) g/dL Albumin 2.9 L (3.5-5.0) g/dL 09/03/21 09/03/21 Range/Units 11:59 16:42 Sodium (137-145) mmol/L Glucose (74-99) mg/dL POC Glucose (mg/dL) 272 H 225 H (75-99) mg/dL Total Protein (6.3-8.2) g/dL Albumin (3.5-5.0) g/dL
[2021-09-03 12:00] LABS: Glucose,Whole Blood 272 mg/dL (75-99)
[2021-09-03] MEDS ORDERED: SODIUM CHLORIDE 0.9% 1,000 ML IV SCH ×2 (14:15)
[2021-09-03 16:43] LABS: Glucose,Whole Blood 225 mg/dL (75-99)
--- NOTE | 2021-09-03 18:16 | PN ---
PROGRESS NOTE This is an 86-year-old lady with history of hypertension, diabetes, hyperlipidemia, came to the hospital with episode of what seems to be more like syncope than seizure. She had a neuro workup which was negative. She has documented episodes of second- degree heart block with pauses of nearly 2.5 seconds and an episode of syncope that brought her to the hospital. Given the episode of syncope and documented pauses, I am recommending permanent pacemaker. She was seen and evaluated by Dr. Zelaya, who also suggested the same. I saw the patient, evaluated her, spoke to her daughter by phone. Explained to him the rationale, risks, benefits, and options. They understand all details and wished to proceed with the procedure which will be performed tomorrow at 7:30 am. I am planning for dual-chamber pacemaker from left infraclavicular approach. EDGAR / DAMIÁN: [id number] /
[2021-09-03] MEDS: SODIUM CHLORIDE 0.9% 1,000 ML IV SCH (18:24)
[2021-09-03 20:21] LABS: Glucose,Whole Blood 237 mg/dL (75-99)
[2021-09-03] MEDS: GABAPENTIN 100 MG CAP PO SCH (20:52)
[2021-09-03] MEDS: FAMOTIDINE 20 MG TAB PO SCH (20:52)
[2021-09-04] MEDS: SODIUM CHLORIDE 0.9% 1,000 ML IV SCH ×2 (02:08→20:56)
[2021-09-04] MEDS: LOSARTAN 50 MG TAB PO SCH (06:04)
[2021-09-04] MEDS: HEPARIN SODIUM,PORCINE/PF 5,000 UNIT/0.5 ML SYRINGE SQ SCH ×2 (06:04→20:57)
[2021-09-04] MEDS: CYANOCOBALAMIN 500 MCG TAB PO SCH (06:04)
[2021-09-04] MEDS: QUEtiapine 25 MG TAB PO SCH ×2 (06:04→20:57)
[2021-09-04] MEDS: CALCIUM CARB-VIT D 500 MG-5 MCG TAB PO SCH (06:04)
[2021-09-04] MEDS: CHOLECALCIFEROL 25 MCG (1000 IU) TABLET PO SCH (06:04)
[2021-09-04 06:13] LABS: Glucose,Whole Blood 161 mg/dL (75-99)
[2021-09-04] MEDS ORDERED: ceFAZolin 1 GM in SODIUM CHLORIDE 0.9% 250 ML IRRIGATION PRN (07:00)
--- NOTE | 2021-09-04 07:31 | P.PN ---
Subjective Progress Note Date: 09/04/21 Principal diagnosis: AV block The patient is an 86-year-old female patient with a past medical history significant for diabetes as well as multiple comorbid conditions who was adm itted to the hospital with change in mental status. She was found to be in AV block, second-degree type I. We consulted to see the patient for that reason. The patient was seen today. She has been maintaining heart rate in the 50s. She is in process of having permanent pacemaker later on today with Dr. Sánchez. I had a discussion yesterday with the neurology service and TIA/CVA was ruled out. She continues to be in second-degree type I AV block. She reports no symptoms of chest pain or chest discomfort or shortness of breath and no dizziness or lightheadedness. Blood pressure continues to be stable. Objective - Vital Signs Vital signs: Vital Signs Temp 97.6 F 09/04/21 06:02 Pulse 56 L 09/04/21 06:02 Resp 16 09/04/21 06:02 BP 132/62 09/04/21 06:02 Pulse Ox 96 09/04/21 06:02 Intake & Output 09/03/21 09/04/21 09/04/21 18:59 06:59 18:59 Intake Total 354 300 Output Total 300 100 Balance 54 200 Intake: Intake, IV Titration 300 Amount Sodium Chloride 0.9% 1, 300 000 ml @ 75 mls/hr IV . [id number] [facility] Rx#:[id number] Oral 354 Output: Urine 300 100 Other: Voiding Method Toilet Diaper # Voids 3 2 - Constitutional General appearance: Present: no acute distress - Respiratory Respiratory: bilateral: CTA - Cardiovascular Rhythm: regular Heart sounds: normal: S1, S2 - Labs CBC & Chem 7: 09/03/21 08:22 09/03/21 08:22 Labs: Abnormal Lab Results - Last 24 Hours (Table) 09/03/21 09/03/21 09/03/21 Range/Units 08:22 11:59 16:42 Sodium 136 L (137-145) mmol/L Glucose 153 H (74-99) mg/dL POC Glucose (mg/dL) 272 H 225 H (75-99) mg/dL Total Protein 6.0 L (6.3-8.2) g/dL Albumin 2.9 L (3.5-5.0) g/dL 09/03/21 09/04/21 Range/Units 20:19 06:12 Sodium (137-145) mmol/L Glucose (74-99) mg/dL POC Glucose (mg/dL) 237 H 161 H (75-99) mg/dL Total Protein (6.3-8.2) g/dL Albumin (3.5-5.0) g/dL Assessment and Plan Assessment: Assessment #1 syncopal episode #2 sinus bradycardia #3 AV block, second degree,1 #4 diabetes #5 multiple comorbid conditions Plan #1 the MRA of the brain came in to be unremarkable #2 the patient has been maintaining heart rate in the 50s and normal blood pressure #3 permanent pacemaker to be performed later on today
[2021-09-04] MEDS ORDERED: SODIUM CHLORIDE 0.9% 500 ML 500 ML IV ONE (07:35)
[2021-09-04 07:50] LABS: Basophils % (A) 1 %; Eosinophils # (A) 0.3 k/uL (0-0.7); Eosinophils % (A) 5 %; HCT 38.2 % (34.0-46.0); HGB 12.1 gm/dL (11.4-16.0); Lymphocytes # (A) 2.3 k/uL (1.0-4.8); Lymphocytes % (A) 36 %; MCH 30.3 pg (25.0-35.0); MCHC 31.6 g/dL (31.0-37.0); Mean Platelet Volume 7.5; Monocytes # (A) 0.3 k/uL (0-1.0); Monocytes % (A) 5 %; Neutrophils # (A) 3.2 k/uL (1.3-7.7); Neutrophils % (A) 51 %; Platelet Count 204 k/uL (150-450); RBC 3.98 m/uL (3.80-5.40); RDW 13.1 % (11.5-15.5); WBC 6.3 k/uL (3.8-10.6)
[2021-09-04] MEDS ORDERED: IOPAMIDOL-370 50ML BTL MISCELLANE ONE (07:50)
[2021-09-04] MEDS ORDERED: fentaNYL (PF) 50 MCG/ML 2 ML AMP ONE (07:59)
[2021-09-04 08:05] LABS: Calcium 8.7 mg/dL (8.4-10.2); Potassium 4.3 mmol/L (3.5-5.1)
[2021-09-04] MEDS: MIDAZOLAM 2 MG/2 ML VIAL IV ONE ×2 (08:19→08:58)
[2021-09-04] MEDS ORDERED: fentaNYL (PF) 50 MCG/ML 2 ML AMP IV ONE (08:20)
[2021-09-04] MEDS ORDERED: LIDOCAINE 1% INJ 10MG/ML (20 ML MDV) SQ ONE (08:27)
--- NOTE | 2021-09-04 09:27 | P.PN ---
Subjective Progress Note Date: 09/03/21 Patient was seen for a follow-up. Patient is sitting in the recliner. No further syncopal versus seizure type spells. No new symptoms. Objective - Vital Signs Vital signs: Vital Signs Temp 97.6 F 09/04/21 06:02 Pulse 56 L 09/04/21 06:02 Resp 16 09/04/21 06:02 BP 132/62 09/04/21 06:02 Pulse Ox 96 09/04/21 06:02 Intake & Output 09/03/21 09/04/21 09/04/21 18:59 06:59 18:59 Intake Total 354 300 100 Output Total 300 100 Balance 54 200 100 Intake: IV 100 Intake, IV Titration 300 Amount Sodium Chloride 0.9% 1, 300 000 ml @ 75 mls/hr IV . [id number] Rx#:[id number] Oral 354 Output: Urine 300 100 Other: Voiding Method Toilet Diaper # Voids 3 2 - Exam Mental status, speech and language functions are normal. Muscle strength is normal. - Labs CBC & Chem 7: 09/04/21 07:08 09/04/21 07:08 Labs: Abnormal Lab Results - Last 24 Hours (Table) 09/03/21 09/03/21 09/03/21 Range/Units 11:59 16:42 20:19 Glucose (74-99) mg/dL POC Glucose (mg/dL) 272 H 225 H 237 H (75-99) mg/dL 09/04/21 09/04/21 Range/Units 06:12 07:08 Glucose 162 H (74-99) mg/dL POC Glucose (mg/dL) 161 H (75-99) mg/dL Assessment and Plan Assessment: * Convulsive syncope versus seizure. Patient has heart block type II, therefore syncope most likely a possibility. * Diabetes, with recent episode of hypoglycemia in the hospital. * Hypertension * Reported diagnosis of Parkinson's, well controlled * Obesity. Plan: * Patient's EEG showed mildly abnormal due to minimal background slowing. This is suggestive of generalized cerebral dysfunction, which may be seen with various causes of encephalopathy or medication effect. No epileptiform activity was seen. * MRI of the brain reported as "cerebral mild atrophy. Patchy white matter sig nal change probably due to microvascular ischemia. There is guarding for cortical increasing the right posterior frontal lobe suggestive of infarct.". This is not an acute infarct. Perhaps an old ischemic lesion. I reviewed MRI of the brain with another neuroradiologist Dr. Aragon and he agreed with the findings. * MRA of neck showed no stenosis. * Cardiology is also on the case for heart block. Patient to undergo pacemaker placement in the morning. * Telemetry monitoring shows second-degree heart block type I and heart rates went down to 30s. * Continue same dose of Sinemet 25/100, 2.5 tablets 3 times a day. * Aricept has to be used with caution with heart block. However she has been on Aricept for a year, therefore doubt is the prime cause of that issue. * Neurologically clear. Would defer further management to cardiology.
[2021-09-04] MEDS ORDERED: ACETAMINOPHEN TAB 325 MG TAB PO PRN (09:50)
--- NOTE | 2021-09-04 10:47 | XR ---
EXAMINATION TYPE: XR chest 1V portable DATE OF EXAM: 09/04/2021 HISTORY: Shortness of breath. COMPARISON: 08/31/2021 TECHNIQUE: Single view of the chest is submitted. FINDINGS: Demonstrated are scattered senescent parenchymal change. Interval placement of dual-lead pacer with distal leads within the right atrium and right ventricle respectively. No evidence for pneumothorax. There is no evidence for focal infiltrate. The heart is stable. Hilar and mediastinal structures are within normal limits. Degenerative changes are seen of the dorsal spine. IMPRESSION: 1. Chronic changes without evidence for acute pulmonary disease.
--- NOTE | 2021-09-04 11:37 | P.PN ---
<Sonny Kendrick - Last Filed: 09/04/21 16:55> Subjective Progress Note Date: 09/04/21 Hospital course: Patient is a very pleasant 86-year-old female with a past medical history of P arkinson's disease, hypertension, hyperlipidemia, restless leg syndrome, and type 2 insulin-dependent diabetes mellitus. She presented to the hospital on 08/31/21 with a chief complaint of loss of consciousness. Patient was witnessed by her daughter to suddenly lose consciousness falling back into her chair with convulsions of her right arm. Upon arrival to the hospital patient was seen and fully evaluated. CBC and CMP were unremarkable LFTs revealed low total protein and albumin. Patient's urinalysis was positive for leukocytes with occasional bacteria, glucose, protein, and ketones. Covid PCR was negative. Patient did have noted EKG changes. EKG revealed sinus bradycardia at 49 bpm with a second- degree type I Wenckebach AV block, this is changed from previous EKG obtained 07/14/18 which revealed only a first-degree AV block. CT head was negative for acute intercranial process however did reveal age indeterminant area of decreased potential relation within the right frontal lobe which could be related to subacute or chronic infarct, and moderate chronic small vessel ischemic changes. Patient was admitted under our services with consultation to neurology and cardiology. Physical exam: Patient seen and fully evaluated at bedside this morning. Patient resting in bed this morning just returning from pacemaker placement. Patient reports mild pain in left shoulder otherwise denies having any complaints at this time including headache, lightheadedness, dizziness, chest pain, palpitations, shortness of breath, or experiencing any numbness/tingling/weakness in her extremities. Morning labs reviewed and CBC and BMP unremarkable. Assisted patient with calling family to notify them that she is out of surgery for pacemaker placement. Tentative plan for discharge in a.m to [facility]. Left arm in sling status post pacemaker placement. Vital signs reviewed and stable. General: Nontoxic, no distress and appears stated age. Derm: Skin warm and dry, normal coloration for ethnicity. Head: Atraumatic, normocephalic and symmetric. Eyes: EOMs intact, no lid lag, and anicteric sclera Mouth: no lip lesions, mucus membranes moist Cardiovascular: regular rate and rhythm with normal S1S2, systolic murmur present, positive posterior tibial pulses bilaterally, and cap refill < 2 seconds. Lungs: Respirations even, regular, and unlabored on room air. Lungs CTA bilaterally, no rhonchi, no rales, no wheezing, and no accessory muscle usage. Abdominal: soft, nontender to palpation, no guarding, no appreciable organomegaly Ext: ROM intact. No gross muscle atrophy, no edema, no contractures Neuro: Speech clear, face symmetrical and CN II-XII grossly intact with no noted focal neuro deficits Psych: Alert and oriented to person, place, time, and situation. Appropriate and pleasant affect. Assessment and Plan of Care: Syncope with convulsions versus seizure EKG changes with bradycardia and newly diagnosed second-degree type I AV block. Symptomatic bradycardia, pacemaker placed 09/04/21 -Admit to observation, telemetry -EKG daily along with continuous cardiac monitoring -Cardiology following, appreciate further recommendations. Patient underwent pacemaker placement this morning. -Neurology following, appreciate further recommendations. -Echocardiogram revealing a normal EF between 55 and 60% with no significant valvular abnormalities. -MRI revealed mild cerebral atrophy and patchy white matter signal changes probably secondary to microvascular ischemia with a gyriform cortical increased signal right posterior frontal lobe suggestive of infarct. -Normal MRA of the neck with no evidence of stenosis. -PT/OT -Repeat labs in the morning Parkinson's disease -Continuation of daily medication regimen with carbidopa levodopa. Dementia -Aricept initially held to rule out adverse reaction of Aricept could be bradycardia with heart block. -Pacemaker placed, Aricept may be resumed. Hypertension -Monitor vital signs and continue daily medication regimen with losartan. Hyperlipidemia -Continue daily medication regimen with atorvastatin. Insulin-dependent Diabetes mellitus -Glycemic protocol and patient to continue scheduled NovoLog with meals and Levemir twice daily along with sliding scale. Restless leg -Continue daily medication regimen with Neurontin and diclofenac. CODE STATUS: CODE STATUS, she wishes to be DO NOT RESUSCITATE/DO NOT INTUBATE, however, she would be okay with elective procedures and cases of critical status with a high likelihood of full recovery. Brief examples include being okay with elective intubation in the case of pneumonia or reversible pulmonary pathology. She would also be okay with elective cardioversion in the case of arrhythmia requiring such. She will be okay with reversing her CODE STATUS for minor procedures if needed. DVT prophylaxis: Heparin Discussed with: Patient and RN Anticipated discharge date: Tomorrow morning Anticipated discharge place: [facility] A total of 45 minutes was spent on the care of this complex patient more than 50% of the time was spent in counseling and care coordination. Objective - Vital Signs Vital signs: Vital Signs Temp 97.6 F 09/04/21 06:02 Pulse 56 L 09/04/21 06:02 Resp 16 09/04/21 06:02 BP 132/62 09/04/21 06:02 Pulse Ox 96 09/04/21 06:02 Intake & Output 09/03/21 09/04/21 09/04/21 18:59 06:59 18:59 Intake Total 354 300 100 Output Total 300 100 Balance 54 200 100 Intake: IV 100 Intake, IV Titration 300 Amount Sodium Chloride 0.9% 1, 300 000 ml @ 75 mls/hr IV . [id number] [facility] Rx#:[id number] Oral 354 Output: Urine 300 100 Other: Voiding Method Toilet Toilet Diaper Diaper # Voids 3 2 - Labs CBC & Chem 7: 09/04/21 07:08 09/04/21 07:08 Labs: Abnormal Lab Results - Last 24 Hours (Table) 09/03/21 09/03/21 09/03/21 Range/Units 11:59 16:42 20:19 Glucose (74-99) mg/dL POC Glucose (mg/dL) 272 H 225 H 237 H (75-99) mg/dL 09/04/21 09/04/21 Range/Units 06:12 07:08 Glucose 162 H (74-99) mg/dL POC Glucose (mg/dL) 161 H (75-99) mg/dL <Tonia Valentine - Last Filed: 09/04/21 20:30> Subjective Sonny Kendrick NP rendered care for this patient independently, reviewed the findings and plan as documented in the note above. I did not physically speak with or examine the patient on this date. Objective - Vital Signs Vital signs: Vital Signs Temp 97.6 F 09/04/21 06:02 Pulse 56 L 09/04/21 06:02 Resp 16 09/04/21 16:00 BP 162/65 09/04/21 16:00 Pulse Ox 96 09/04/21 06:02 Intake & Output 09/04/21 09/04/21 09/05/21 06:59 18:59 06:59 Intake Total 300 458 Output Total 100 Balance 200 458 Intake: IV 100 Intake, IV Titration 300 Amount Sodium Chloride 0.9% 1, 300 000 ml @ 75 mls/hr IV . [id number] [facility] Rx#:[id number] Oral 358 Output: Urine 100 Other: Voiding Method Toilet Diaper # Voids 2 2 - Labs CBC & Chem 7: 09/04/21 07:08 09/04/21 07:08 Labs: Abnormal Lab Results - Last 24 Hours (Table) 09/04/21 09/04/21 09/04/21 Range/Units 06:12 07:08 12:10 Glucose 162 H (74-99) mg/dL POC Glucose (mg/dL) 161 H 199 H (75-99) mg/dL 09/04/21 09/04/21 Range/Units 17:10 20:12 Glucose (74-99) mg/dL POC Glucose (mg/dL) 258 H 243 H (75-99) mg/dL
--- NOTE | 2021-09-04 11:44 | PCN ---
PROCEDURE NOTE PACEMAKER PROCEDURE NOTE: DATE OF SERVICE: 09/04/2021. PROCEDURE: Dual-chamber permanent pacemaker from left infraclavicular approach. PERFORMED BY: Dr. Lydia Sánchez. Moderate conscious sedation time was 69 minutes. Patient was administered Versed and fentanyl. Oxygen saturation, hemodynamics and EKG were monitored closely. CLINICAL INFORMATION: Mrs. Miguel Mcpherson is an 86-year-old lady with a known history of hypertension, type 2 diabetes and hyperlipidemia who came into the hospital with episode of documented near- syncope by the patient's daughter, and there was also a question of seizure. She had a full neurological evaluation and while she was here in the hospital she had recurrent episodes of second-degree heart block, symptomatic with dizziness. She was advised a dual-chamber pacemaker because of symptomatic second-degree heart block with documented episode of near-syncope that required hospitalization. Risks, benefits and options were explained to the patient. She understood all details and wished to proceed with the procedure. PROCEDURE NOTE: Under strict aseptic precautions and local anesthesia under fluoroscopic guidance, using a micropuncture needle technique, an access was obtained into the axillary vein after performing the venogram. A micropuncture needle technique was used and the wire was left in position. I then made a 2-1/2- to 3-inch linear incision medial and parallel to the left deltopectoral groove. Blunt dissection was performed with a scalpel and cautery up to the subfacial level. A pocket was made. Good hemostasis was secured. An antibiotic sponge was left in the pocket. Subsequently, a second access point was also obtained using micropuncture needle technique just medial to the previously obtained access. I hid the subclavian/axillary artery on at least 3 occasions and then eventually was able to get access into the axillary vein. A wire was advanced and positioned in the inferior vena cava. A 6-Mongolian sheath was introduced over the wire and ventricular lead was advanced and positioned in the interventricular septum. Excellent thresholds and sensitivities were achieved. The lead was then secured to the underlying fascia with 0 silk. Subsequently, through the next access point a 6-Mongolian introducer was placed over the wire and an atrial lead was advanced and positioned in the right atrium. Excellent thresholds and sensitivities were obtained. Both the leads were checked with 10-volt pacing and also both the leads were checked for good position in the URDU and FERRIS projection. The leads were checked for slack. Both the leads were secured to the underlying muscle with 0 silk suture. The leads were then connected to the pulse generator. The pulse generator was also secured to the underlying muscle in the line of the incision with 0 silk. Subsequently the wound was closed in 2 layers, but prior to closing the entire pocket was irrigated with antibiotics and the sponge was taken out. The wound was closed in 2 layers. Excellent hemostasis was secured. Fluoroscopy was obtained to review the position of the pacemaker leads and the pulse generator, and everything seemed to be very good. The patient tolerated the procedure well without complications. She was sent to the room in a stable condition. 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, model Tendril STS 2088 TC/46, serial #[id number]. Ventricular lead tobacco warehouse manager [employer], model Tendril STS 2088 TC/52, serial #[id number]. The atrial lead threshold was 0.5 V at 0.5 millisecond. The P-waves were 3.8 mV. The lead impedance was 430 ohms. The ventricular lead threshold was 0.5 V at 0.5 millisecond. The R-waves were 8.2 mV. Lead impedance was 590 ohms. The pacemaker was set at a low rate of 55, high rate of 150. Patient will have a portable chest x-ray today and a repeat two-view chest x-ray tomorrow. Pacemaker will also be checked tomorrow, and if everything looks good, she will be discharged tomorrow. Details were discussed with the patient as well as by phone with her daughter, Liz, and I also spoke to Dr. Zelaya and the nurse taking care of the patient. MMODL / IJN: [id number] /
[2021-09-04 12:13] LABS: Glucose,Whole Blood 199 mg/dL (75-99)
[2021-09-04] MEDS: INSULIN DETEMIR (LEVEMIR) 100 UNIT/ML SYR SQ SCH ×2 (12:49→20:57)
[2021-09-04] MEDS: INSULIN ASPART (NovoLOG) 100 UNIT/ML VIAL SQ SCH ×6 (12:53→17:17)
[2021-09-04] MEDS: CARBIDOPA-LEVODOPA ER 25-100MG 1 EACH TABLET.ER PO SCH ×3 (12:54→20:57)
[2021-09-04 17:17] LABS: Glucose,Whole Blood 258 mg/dL (75-99)
[2021-09-04 20:13] LABS: Glucose,Whole Blood 243 mg/dL (75-99)
[2021-09-04] MEDS: FAMOTIDINE 20 MG TAB PO SCH (20:56)
[2021-09-04] MEDS: GABAPENTIN 100 MG CAP PO SCH (20:57)
[2021-09-04] MEDS ORDERED: DONEPEZIL 10 MG TAB PO SCH (21:00)
[2021-09-05] MEDS: ACETAMINOPHEN TAB 325 MG TAB PO PRN ×2 (02:19→13:29)
[2021-09-05 07:14] LABS: Glucose,Whole Blood 177 mg/dL (75-99)
[2021-09-05] MEDS: INSULIN DETEMIR (LEVEMIR) 100 UNIT/ML SYR SQ SCH (07:17)
[2021-09-05] MEDS: INSULIN ASPART (NovoLOG) 100 UNIT/ML VIAL SQ SCH ×4 (07:18→13:19)
--- NOTE | 2021-09-05 08:31 | XR ---
EXAMINATION TYPE: XR chest 2V DATE OF EXAM: 09/05/2021 COMPARISON: 09/04/2021 HISTORY: Shortness of breath TECHNIQUE: Frontal and lateral views of the chest are obtained. FINDINGS: Scattered senescent parenchymal changes noted. Hyperinflation compatible with COPD. No focal infiltrates seen. Dual-lead pacer is appropriately placed. No evidence for pneumothorax. Heart size is stable. Mediastinal structures are stable and grossly unremarkable. No evidence for hilar prominence. Degenerative changes dorsal spine. IMPRESSION: 1. No evidence for acute pulmonary disease.
[2021-09-05 08:52] VITALS: TEMP 96.1
[2021-09-05 08:56] LABS: Basophils % (A) 1 %; Eosinophils # (A) 0.3 k/uL (0-0.7); Eosinophils % (A) 4 %; HCT 39.6 % (34.0-46.0); HGB 12.3 gm/dL (11.4-16.0); Hypochromasia Slight; Lymphocytes # (A) 2.3 k/uL (1.0-4.8); Lymphocytes % (A) 35 %; MCHC 31.1 g/dL (31.0-37.0); MCV 96.6 fL (80.0-100.0); Mean Platelet Volume 7.6; Monocytes # (A) 0.3 k/uL (0-1.0); Monocytes % (A) 5 %; Neutrophils # (A) 3.6 k/uL (1.3-7.7); Neutrophils % (A) 54 %; Platelet Count 186 k/uL (150-450); RDW 13.6 % (11.5-15.5); WBC 6.8 k/uL (3.8-10.6)
[2021-09-05] MEDS: QUEtiapine 25 MG TAB PO SCH (09:00)
[2021-09-05] MEDS: CYANOCOBALAMIN 500 MCG TAB PO SCH (09:00)
[2021-09-05] MEDS: HEPARIN SODIUM,PORCINE/PF 5,000 UNIT/0.5 ML SYRINGE SQ SCH (09:00)
[2021-09-05] MEDS: CHOLECALCIFEROL 25 MCG (1000 IU) TABLET PO SCH (09:00)
[2021-09-05] MEDS: LOSARTAN 50 MG TAB PO SCH (09:00)
[2021-09-05] MEDS: CALCIUM CARB-VIT D 500 MG-5 MCG TAB PO SCH (09:00)
[2021-09-05] MEDS: CARBIDOPA-LEVODOPA ER 25-100MG 1 EACH TABLET.ER PO SCH (09:01)
--- NOTE | 2021-09-05 11:23 | P.DS ---
<Sonny Kendrick - Last Filed: 09/05/21 17:17> Providers Expected date of discharge: 09/05/21 Hospital Course: Discharge Diagnosis: Syncope with convulsions versus seizure EKG changes with bradycardia and newly diagnosed second-degree type I AV block. Symptomatic bradycardia, pacemaker placed 09/04/21 Parkinson's disease Dementia Hypertension Hyperlipidemia. Insulin-dependent Diabetes mellitus Restless leg Hospital Course: Patient is a very pleasant 86-year-old female with a past medical history of Parkinson's disease, hypertension, hyperlipidemia, restless leg syndrome, and type 2 insulin-dependent diabetes mellitus. She presented to the hospital on 08/31/21 with a chief complaint of loss of consciousness. Patient was witnessed by her daughter to suddenly lose consciousness falling back into her chair with convulsions of her right arm. Upon arrival to the hospital patient was seen and fully evaluated. CBC and CMP were unremarkable LFTs revealed low total protein and albumin. Patient's urinalysis was positive for leukocytes with occasional bacteria, glucose, protein, and ketones. Covid PCR was negative. Patient did have noted EKG changes. EKG revealed sinus bradycardia at 49 bpm with a second- degree type I Wenckebach AV block, this is changed from previous EKG obtained 07/14/18 which revealed only a first-degree AV block. CT head was negative for acute intercranial process however did reveal age indeterminant area of decreased potential relation within the right frontal lobe which could be related to subacute or chronic infarct, and moderate chronic small vessel ischemic changes. Patient was admitted under our services with consultation to neurology and cardiology. Echocardiogram revealing a normal EF between 55 and 60% with no significant valvular abnormalities. MRI revealed mild cerebral atrophy and patchy white matter signal changes probably secondary to microvascular ischemia with a gyriform cortical increased signal right posterior frontal lobe suggestive of infarct. Normal MRA of the neck with no evidence of stenosis. Patient's Plavix was discontinued and patient started on Brillinta. Acute CVA was ruled out and syncopal episode not likely due to neurological disorder. Further evaluation by cardiology, it was determined patient's need for permanent pacemaker placement secondary to symptomatic bradycardia with second-degree type I AV block. Patient underwent pacemaker placement on 09/04/21. Patient again monitored overnight pacemaker interrogated this morning reported to be functioning properly. Patient has been cleared from cardiac perspective and recommended to follow up outpatient with manager emergency Dr. Skaf in 1 week. Patient is also medically stable for discharge at this time. Patient being discharged to rehabilitation facility secondary to inability to use left arm due to recent pacemaker placement and continued need for assistance. Physical exam: Vital signs reviewed and stable. General: Nontoxic, no distress and appears stated age. Derm: Skin warm and dry, normal coloration for ethnicity. Head: Atraumatic, normocephalic and symmetric. Eyes: EOMs intact, no lid lag, and anicteric sclera Mouth: No lip lesions, mucus membranes moist Cardiovascular: Regular rate and rhythm with normal S1S2, systolic murmur present, positive posterior tibial pulses bilaterally, and cap refill < 2 seconds. Lungs: Respirations even, regular, and unlabored on room air. Lungs CTA bilaterally, no rhonchi, no rales, no wheezing, and no accessory muscle usage. Abdominal: soft, nontender to palpation, no guarding, no appreciable organomegaly Ext: ROM intact. No gross muscle atrophy, no edema, no contractures Neuro: Speech clear, face symmetrical and CN II-XII grossly intact with no noted focal neuro deficits Psych: Alert and oriented to person, place, time, and situation. Appropriate and pleasant affect. A total of 45 minutes of time were spent preparing this complex discharge summary. Patient Condition at Discharge: Good Plan - Discharge Summary Discharge Rx Participant: No New Discharge Prescriptions: New Acetaminophen Tab [Tylenol] 650 mg PO Q6HR PRN tab PRN Reason: Mild Pain Or Fever > 100.5 Carbidopa-Levodopa ER 25-100Mg [Sinemet CR 25-100 mg] 2.5 each PO TID tab Continue Multivitamins, Thera [Multivitamin (formulary)] 1 tab PO DAILY Insulin Glargine [Lantus Vial] 20 unit SQ BID Insulin Aspart [NovoLOG] 5 - 15 units SQ AC-TID Famotidine 40 mg PO HS Selenium 100 mcg PO DAILY L.acidoph,Paracasei, B.lactis [Probiotic] 1 tab PO DAILY Krill Oil 1 tab PO DAILY Calcium Carbonate/Vitamin D3 [Calcium 600-Vit D3 5 Mcg (200 Iu)] 1 each PO DAILY Ubidecarenone [Co Q-10] 400 mg PO DAILY Biotin [Biotin Disolve] 5,000 mcg PO DAILY Losartan [Cozaar] 50 mg PO DAILY Diclofenac Sodium [Voltaren Gel] 4 gram TOPICAL DAILY PRN PRN Reason: Pain Stool Softner (Unknown) (Otc) 1 tab PO DAILY PRN PRN Reason: Constipation Cholecalciferol [Vitamin D3 (25 Mcg = 1000 Iu)] 50 mcg PO DAILY Cyanocobalamin (Vitamin B-12) [Vitamin B-12] 1,000 mcg PO DAILY Magnesium 500 mg PO DAILY Nystatin/Triamcin [Nystatin-Triamcinolone] 1 applic TOPICAL DAILY PRN PRN Reason: infection Rosuvastatin Calcium [Crestor] 5 mg PO MOWE Triamcinolone 0.025% Cream [Kenalog 0.025% Cream] 1 applic TOPICAL DAILY PRN PRN Reason: Rash Triamcinolone Acetonide [Nasacort] 1 spray EA NOSTRIL DAILY PRN PRN Reason: Cold Symptoms Gabapentin [Neurontin] 100 mg PO HS #4 cap HYDROcodone/APAP 7.5-325MG [[place] 7.5-325] 1 tab PO Q8H PRN #16 tab PRN Reason: Pain ALPRAZolam [Xanax] 0.25 mg PO DAILY PRN #12 tab PRN Reason: Anxiety Donepezil [Aricept] 10 mg PO DAILY Glimepiride [Amaryl] 2 mg PO DAILY metFORMIN HCL ER [Glucophage XR] 500 mg PO BID QUEtiapine [SEROquel] 25 mg PO BID Discharge Medication List Famotidine 40 mg PO HS 07/14/16 [History] Insulin Aspart [NovoLOG] 5 - 15 units SQ AC-TID 07/14/16 [History] Insulin Glargine [Lantus Vial] 20 unit SQ BID 07/14/16 [History] Krill Oil 1 tab PO DAILY 07/14/16 [History] L.acidoph,Paracasei, B.lactis [Probiotic] 1 tab PO DAILY 07/14/16 [History] Multivitamins, Thera [Multivitamin (formulary)] 1 tab PO DAILY 07/14/16 [History] Selenium 100 mcg PO DAILY 07/14/16 [History] Biotin [Biotin Disolve] 5,000 mcg PO DAILY 07/15/18 [History] Calcium Carbonate/Vitamin D3 [Calcium 600-Vit D3 5 Mcg (200 Iu)] 1 each PO DAILY 07/15/18 [History] Diclofenac Sodium [Voltaren Gel] 4 gram TOPICAL DAILY PRN 07/15/18 [History] Losartan [Cozaar] 50 mg PO DAILY 07/15/18 [History] Ubidecarenone [Co Q-10] 400 mg PO DAILY 07/15/18 [History] Cholecalciferol [Vitamin D3 (25 Mcg = 1000 Iu)] 50 mcg PO DAILY 08/31/21 [History] Cyanocobalamin (Vitamin B-12) [Vitamin B-12] 1,000 mcg PO DAILY 08/31/21 [History] Donepezil [Aricept] 10 mg PO DAILY 08/31/21 [History] Glimepiride [Amaryl] 2 mg PO DAILY 08/31/21 [History] Magnesium 500 mg PO DAILY 08/31/21 [History] Nystatin/Triamcin [Nystatin-Triamcinolone] 1 applic TOPICAL DAILY PRN 08/31/21 [History] QUEtiapine [SEROquel] 25 mg PO BID 08/31/21 [History] Rosuvastatin Calcium [Crestor] 5 mg PO MOWE 08/31/21 [History] Stool Softner (Unknown) (Otc) 1 tab PO DAILY PRN 08/31/21 [History] Triamcinolone 0.025% Cream [Kenalog 0.025% Cream] 1 applic TOPICAL DAILY PRN 08/31/21 [History] Triamcinolone Acetonide [Nasacort] 1 spray EA NOSTRIL DAILY PRN 08/31/21 [History] metFORMIN HCL ER [Glucophage XR] 500 mg PO BID 08/31/21 [History] ALPRAZolam [Xanax] 0.25 mg PO DAILY PRN #12 tab 09/05/21 [Rx] Acetaminophen Tab [Tylenol] 650 mg PO Q6HR PRN tab 09/05/21 [Rx] Carbidopa-Levodopa ER 25-100Mg [Sinemet CR 25-100 mg] 2.5 each PO TID tab 09/05/21 [Rx] Gabapentin [Neurontin] 100 mg PO HS #4 cap 09/05/21 [Rx] HYDROcodone/APAP 7.5-325MG [[place] 7.5-325] 1 tab PO Q8H PRN #16 tab 09/05/21 [Rx] Follow up Appointment(s)/Referral(s): Tee Zelaya MD [STAFF PHYSICIAN] - 1 Week Prashanth-Reincke,Jessenia, MD [Primary Care Provider] - 1-2 days [facility], [NON-STAFF] - Patient Instructions/Handouts: Pacemaker (DC) Activity/Diet/Wound Care/Special Instructions: Activity Restrictions or Additional Instructions: Instructions following a heart rhythm device implant. 1. Keep dressing dry for 5 days. You alla cover the area with surrounding with a clean dressing/wrap prior to shower 2. The dressing can be removed in about 5 days in the Device Clinic at Cardiology [facility]. Absorbable sutures were used to close the wound. 3. Avoid raising the left arm above the shoulder level. 4 week resection. 4. Avoid arm movements such as back scratching, rubbing the head or pulling on a cord. 4 week for striction. 5. Gentle range of motion movements of the shoulder, closest institution should be performed to avoid a frozen shoulder. (Pendulum exercises of the shoulder) 6. The opposite arm may be used freely. 7. Avoid driving for 7 days. 8. Avoid activities such as golfing, swimming, weed whacking, lifting more than 10 pounds of weight, bowling, and weight training/lifting (6 week restriction) 9. Being close to home induction cooktops and activities such as wood chopping with axe, pull ups, power lifting will always be a problem 10. Arm sling is only remind her not to raise arm above the head. You do not need to keep the arm completely immobilized. You're free to move the arm and use it in normal activities. In case of any problems, [phone] Attention: Device Clinic Device clinic follow up in 5 days Follw up with primary manager emergency in 2-3 months Activity: As tolerated. Take breaks as needed. Diet: Heart healthy and carb consistent diet. Avoid salts, or foods with hidden salts such as canned or boxed foods and frozen dinners. Extra salt makes your heart work harder and traps the fluid in your body for longer. Special Instructions: Take all of your medications as directed and remember to keep all of your doctor's appointments and follow-up as needed. Wishing you a very happy, healthy, and blessed New Year!! Thank you for allowing us to participate in your care, it was truly a pleasure having you for our patient!!! Discharge Disposition: TRANSFER TO SNF/ECF <Tonia Valentine - Last Filed: 09/05/21 20:36> Providers Date of admission: 09/02/21 11:32 Attending physician: Krishna Braden MD Consults: 08/31/21 19:00 Consult Physician Routine Consulting Provider: Thomas Ruggiero Consult Reason/Comments: new onset seizure Do you want consulting provider notified?: Yes 08/31/21 19:35 Consult Physician Routine Consulting Provider: Lesli Lovelace Consult Reason/Comments: Syncope vs seizure, with bradycardia and Mobitz type I AV Block Do you want consulting provider notified?: Yes Primary care physician: [facility] Course: Sonny Kendrick NP rendered care for this patient independently, reviewed the findings and plan as documented in the note above. I did not physically speak with or examine the patient on this date.
[2021-09-05 11:58] LABS: Glucose,Whole Blood 186 mg/dL (75-99)
--- NOTE | 2021-09-05 12:07 | P.PN ---
Subjective This is a 86 year old female with a past medical history of type 2 diabetes, hypertension, dyslipidemia, Parkinson disease who was brought to the hospital with a change in mental status and syncopal episode. She does not follow with a c winforms developer regularly. We are consulted for bradycardia. EKG revealed sinus rhythm with second degree type I AV block. She was not on any AV karma siena agents. Patient was evaluated by neurology service and CVA/TIA was ruled out. Echo showed normal left ventricle systolic function 55-60%. She had recurrent episodes of second degree heart block, symptomatic with dizziness. Pacemaker was recommended. Patient underwent dual chamber pacemaker implantation by Dr. Sánchez on 09/04/21. Patient seen and examined at bedside, no acute distress. She has some mild chest soreness around pacemaker insertion site. Dressing clean dry intact. Chest xray this morning revealed dual lead pacer placement, no evidence of pneumothorax, heart size is stable, no acute pulmonary disease. Telemetry tracings indicate sinus rhythm HR 60s-70s with AV pacing noted. Currently maintained on atorvastatin 10 mg daily, losartan 50 mg daily. Labs, CBC unremarkable, hemoglobin stable, magnesium 1.7. Vitals Reviewed GENERAL: Well-appearing, well-nourished and in no acute distress. NECK: Supple without JVD or thyromegaly. LUNGS: Breath sounds clear to auscultation bilaterally. Respiration equal and unlabored. No wheezes, rales or rhonchi. HEART: Regular rate and rhythm without murmurs, rubs or gallops. S1 and S2 heard. EXTREMITIES: Normal range of motion, no edema. No clubbing or cyanosis. Peripheral pulses intact. ASSESSMENT: Syncopal Episode Second degree AV block type 1 Symptomatic bradycardia Status post pacemaker 09/04/21 Type 2 Diabetes History of Hypertension Dyslipidemia PLAN From a cardiology perspective, patient is stable to be discharged to rehab. Chest xray stable, no acute findings. Device interrogation performed, device functioning properly. Continue current cardiac medications. Patient to follow up outpatient with Dr. Zelaya in 1-2 weeks. Objective - Vital Signs Vital signs: Vital Signs Temp 97.6 F 09/04/21 06:02 Pulse 56 L 09/04/21 06:02 Resp 16 09/04/21 16:00 BP 162/65 09/04/21 16:00 Pulse Ox 96 09/04/21 06:02 Intake & Output 09/03/21 09/04/21 09/04/21 18:59 06:59 18:59 Intake Total 354 300 458 Output Total 300 100 Balance 54 200 458 Intake: IV 100 Intake, IV Titration 300 Amount Sodium Chloride 0.9% 1, 300 000 ml @ 75 mls/hr IV . [id number] [facility] Rx#:[id number] Oral 354 358 Output: Urine 300 100 Other: Voiding Method Toilet Toilet Diaper Diaper # Voids 3 2 2 - Labs CBC & Chem 7: 09/05/21 08:11 09/04/21 07:08 Labs: Abnormal Lab Results - Last 24 Hours (Table) 09/03/21 09/04/21 09/04/21 Range/Units 20:19 06:12 07:08 Glucose 162 H (74-99) mg/dL POC Glucose (mg/dL) 237 H 161 H (75-99) mg/dL 09/04/21 09/04/21 Range/Units 12:10 17:10 Glucose (74-99) mg/dL POC Glucose (mg/dL) 199 H 258 H (75-99) mg/dL
[2021-09-05 12:40] VITALS: BP 136/63; PULSE 65; RESP 18
== END 2021-09-05 14:12 | DRG 244 ==
LOC: EC 14:02 → 3SCARD 18:59 → OBSVTOIN 09-02 11:32
PROVIDERS: ADMIT Internal Medicine; ATTEND Internal Medicine
PROC: 0JH606Z Insertion of Pacemaker, Dual Chamber into Chest Subcutaneous Tissue and Fascia, Open Approach (ICD-10-PCS; principal; 2021-09-02)
PROC: 02HL3JZ Insertion of Pacemaker Lead into Left Ventricle, Percutaneous Approach (ICD-10-PCS; 2021-09-02)
PROC: 02H63JZ Insertion of Pacemaker Lead into Right Atrium, Percutaneous Approach (ICD-10-PCS; 2021-09-02)
DX: I44.1 Atrioventricular block, second degree (principal); E11.9 Type 2 diabetes mellitus without complications; E66.9 Obesity, unspecified; E78.5 Hyperlipidemia, unspecified; F02.80 Dementia in other diseases classified elsewhere, unspecified severity, without behavioral disturbance, psychotic disturbance, mood disturbance, and anxiety; G20 Parkinson's disease; G25.81 Restless legs syndrome; I10 Essential (primary) hypertension; R56.9 Unspecified convulsions; Z20.822 Contact with and (suspected) exposure to COVID-19; Z66 Do not resuscitate; Z79.4 Long term (current) use of insulin; Z79.84 Long term (current) use of oral hypoglycemic drugs; Z79.899 Other long term (current) drug therapy; Z87.891 Personal history of nicotine dependence; Z95.0 Presence of cardiac pacemaker; E11.649 Type 2 diabetes mellitus with hypoglycemia without coma; F32.9 Major depressive disorder, single episode, unspecified; M19.90 Unspecified osteoarthritis, unspecified site
CPT/HCPCS: 33208; 36415; 70450; 70549; 70553; 71045; 71046; 80048; 80053; 80076; 81001; 83735; 84443; 84484; 85025; 85027; 85610; 85730; 87086; 87635; 93005; 93306; 95819; 96360; 99285

== ENCOUNTER 2022-03-10 12:29 | Emergency (ER) | payer MEDICARE ==
[2022-03-10] MEDS ORDERED: SODIUM CHLORIDE 0.9% 1,000 ML IV ONE (12:56)
[2022-03-10] MEDS ORDERED: MORPHINE SULFATE 4 MG/ML SYRINGE IV STA (12:56)
[2022-03-10 12:57] VITALS: RESP 18
[2022-03-10 13:42] LABS: Basophils # (A) 0.1 k/uL (0-0.2); Basophils % (A) 1 %; Eosinophils # (A) 0.3 k/uL (0-0.7); Eosinophils % (A) 4 %; HCT 38.6 % (34.0-46.0); Lymphocytes # (A) 2.1 k/uL (1.0-4.8); Lymphocytes % (A) 34 %; MCH 31.4 pg (25.0-35.0); MCHC 33.8 g/dL (31.0-37.0); Mean Platelet Volume 7.5; Monocytes # (A) 0.3 k/uL (0-1.0); Monocytes % (A) 5 %; Neutrophils # (A) 3.4 k/uL (1.3-7.7); Neutrophils % (A) 54 %; Platelet Count 189 k/uL (150-450); RBC 4.15 m/uL (3.80-5.40); RDW 12.8 % (11.5-15.5); WBC 6.3 k/uL (3.8-10.6)
[2022-03-10 13:50] LABS: Calcium 8.5 mg/dL (8.4-10.2)
--- NOTE | 2022-03-10 14:37 | CT ---
EXAMINATION TYPE: CT abdomen pelvis w con DATE OF EXAM: 03/10/2022 COMPARISON: 02/23/20 HISTORY: Fall, right sided pain, sore on buttocks also CT DLP: 1122.2 mGycm CONTRAST: CT scan of the abdomen and pelvis is performed without Oral Contrast and with IV Contrast, patient in jected with 100 mL of Isovue 300. FINDINGS: LUNG BASES-: No visible nodule. No infiltrate. LIVER/GB: The gallbladder is surgically absent. No space occupying hepatic lesion. Biliary tree is of normal caliber. PANCREAS: No inflammation. No distinct mass. SPLEEN: No splenic enlargement. No lesion seen. ADRENALS: No nodule. No thickening. KIDNEYS/BLADDER: No hydronephrosis. No nephrolithiasis. No distinct renal mass. Urinary bladder g rossly unremarkable. BOWEL: Normal appendix. Normal bowel caliber. No inflammation. GENITAL ORGANS: No gross abnormality. LYMPH NODES: No greater than 1cm abdominal or pelvic lymph nodes are appreciated. AORTA: No significant abnormality. OSSEOUS STRUCTURES: Severe degenerative changes lumbar spine. OTHER: No significant additional abnormality is seen. IMPRESSION: 1. No significant abnormality seen to account for the patient's symptoms.
--- NOTE | 2022-03-10 14:48 | XR ---
EXAMINATION TYPE: XR pelvis AP view DATE OF EXAM: 03/10/2022 CLINICAL HISTORY: pain TECHNIQUE: Single view of the pelvis is submitted. FINDINGS: No evidence for fracture, dislocation or bony lesion. Joint spaces are well-preserved. S I joints appear symmetric. IMPRESSION: 1. No acute fracture or dislocation seen. ICD 10 NO FRACTURE, INITIAL EVALUATION
--- NOTE | 2022-03-10 14:50 | XR ---
EXAMINATION TYPE: XR femur RT DATE OF EXAM: 03/10/2022 CLINICAL HISTORY: pain TECHNIQUE: Two views of the right femur are obtained. COMPARISON: None. FINDINGS: There is no acute fracture or dislocation seen of the femur. The hip and knee joints appear within normal limits. The overlying soft tissue appears unremarkable. Total knee arthroplasty changes. IMPRESSION: There is no acute fracture or dislocation seen of the femur. ICD 10 NO FRACTURE, INITIAL EVALUATION
--- NOTE | 2022-03-10 14:54 | XR ---
EXAMINATION TYPE: XR ribs RT w pa chest xray DATE OF EXAM: 03/10/2022 COMPARISON: NONE HISTORY: Pain TECHNIQUE: Single view of the chest 4 views of the ribs are submitted. FINDINGS: The lungs are clear. No Evidence for pneumothorax. No evidence for focal contusion. Medi astinal structures are midline. Evaluation of the ribs fails to demonstrate evidence for displaced r ib fracture or secondary sign of rib fracture. IMPRESSION: Negative study
--- NOTE | 2022-03-10 14:56 | XR ---
EXAMINATION TYPE: XR knee limited RT DATE OF EXAM: 03/10/2022 CLINICAL HISTORY: pain TECHNIQUE: Two views of the right knee are obtained. COMPARISON: None. FINDINGS: The knee arthroplasty noted with femoral and tibial components appearing well seated. Trac e joint effusion suggested. There is no acute fracture/dislocation. The tri-compartment joint spaces appear within normal limits. The overlying soft tissue appears unremarkable. IMPRESSION: There is no acute fracture or dislocation.ICD 10 NO FRACTURE, INITIAL EVALUATION
--- NOTE | 2022-03-10 15:27 | ED ---
Fall HPI - General Chief Complaint: Fall Stated Complaint: fall, hip & back pain Time Seen by Provider: 03/10/22 12:34 Source: patient, EMS Mode of arrival: EMS - History of Present Illness Initial Comments: Patient complains of injuries from a fall. She landed on her right side. She did not hit her head. She did not lose conscious. She has no neck pain or stiffness. She has pain in the right ribs and the right side of the abdomen. She also has some right leg pain. She has no paresthesias. She has no weakness. She was given pain medicine IM by EMS prior travel. - Related Data Home Medications Medication Instructions Recorded Confirmed Famotidine 40 mg PO HS 07/14/16 08/31/21 Insulin Aspart [NovoLOG] 5 - 15 units SQ AC-TID 07/14/16 08/31/21 Insulin Glargine [Lantus Vial] 20 unit SQ BID 07/14/16 08/31/21 Krill Oil 1 tab PO DAILY 07/14/16 08/31/21 L.acidoph,Paracasei, B.lactis 1 tab PO DAILY 07/14/16 08/31/21 [Probiotic] Multivitamins, Thera [Multivitamin 1 tab PO DAILY 07/14/16 08/31/21 (formulary)] Selenium 100 mcg PO DAILY 07/14/16 08/31/21 Biotin [Biotin Disolve] 5,000 mcg PO DAILY 07/15/18 08/31/21 Calcium Carbonate/Vitamin D3 1 each PO DAILY 07/15/18 08/31/21 [Calcium 600-Vit D3 5 Mcg (200 Iu)] Diclofenac Sodium [Voltaren Gel] 4 gram TOPICAL DAILY PRN 07/15/18 08/31/21 Losartan [Cozaar] 50 mg PO DAILY 07/15/18 08/31/21 Ubidecarenone [Co Q-10] 400 mg PO DAILY 07/15/18 08/31/21 Cholecalciferol [Vitamin D3 (25 50 mcg PO DAILY 08/31/21 08/31/21 Mcg = 1000 Iu)] Cyanocobalamin (Vitamin B-12) 1,000 mcg PO DAILY 08/31/21 08/31/21 [Vitamin B-12] Donepezil [Aricept] 10 mg PO DAILY 08/31/21 08/31/21 Glimepiride [Amaryl] 2 mg PO DAILY 08/31/21 08/31/21 Magnesium 500 mg PO DAILY 08/31/21 08/31/21 Nystatin/Triamcin 1 applic TOPICAL DAILY PRN 08/31/21 08/31/21 [Nystatin-Triamcinolone] QUEtiapine [SEROquel] 25 mg PO BID 08/31/21 08/31/21 Rosuvastatin Calcium [Crestor] 5 mg PO MOWE 08/31/21 08/31/21 Stool Softner (Unknown) (Otc) 1 tab PO DAILY PRN 08/31/21 08/31/21 Triamcinolone 0.025% Cream 1 applic TOPICAL DAILY PRN 08/31/21 08/31/21 [Kenalog 0.025% Cream] Triamcinolone Acetonide [Nasacort] 1 spray EA NOSTRIL DAILY PRN 08/31/21 08/31/21 metFORMIN HCL ER [Glucophage XR] 500 mg PO BID 08/31/21 08/31/21 Previous Rx's Medication Instructions Recorded ALPRAZolam [Xanax] 0.25 mg PO DAILY PRN #12 tab 09/05/21 Acetaminophen Tab [Tylenol] 650 mg PO Q6HR PRN tab 09/05/21 Carbidopa-Levodopa ER 25-100Mg 2.5 each PO TID tab 09/05/21 [Sinemet CR 25-100 mg] Gabapentin [Neurontin] 100 mg PO HS #4 cap 09/05/21 HYDROcodone/APAP 7.5-325MG [Pollock 1 tab PO Q8H PRN #16 tab 09/05/21 7.5-325] Allergies Allergy/AdvReac Type Severity Reaction Status Date / Time codeine AdvReac Hallucinati Verified 02/23/20 20:36 ons Review of Systems ROS Statement: Those systems with pertinent positive or pertinent negative responses have been documented in the HPI. ROS Other: All systems not noted in ROS Statement are negative. Past Medical History Past Medical History: Diabetes Mellitus, Hypertension Additional Past Medical History / Comment(s): Parkinsons, Arthritis, diverticulitis History of Any Multi-Drug Resistant Organisms: None Reported Past Surgical History: Joint Replacement, Tonsillectomy Past Anesthesia/Blood Transfusion Reactions: No Reported Reaction Past Psychological History: No Psychological Hx Reported Smoking Status: Former smoker Past Alcohol Use History: None Reported Past Drug Use History: None Reported General Exam Limitations: physical limitation General appearance: alert, in no apparent distress Head exam: Present: atraumatic, normocephalic, normal inspection Eye exam: Present: normal appearance, PERRL, EOMI. Absent: scleral icterus, conjunctival injection, periorbital swelling ENT exam: Present: normal exam, mucous membranes moist Neck exam: Present: normal inspection. Absent: tenderness, meningismus, lymphadenopathy Respiratory exam: Present: normal lung sounds bilaterally. Absent: respiratory distress, wheezes, rales, rhonchi, stridor Cardiovascular Exam: Present: regular rate, normal rhythm, normal heart sounds. Absent: systolic murmur, diastolic murmur, rubs, gallop, clicks GI/Abdominal exam: Present: soft, normal bowel sounds. Absent: distended, tenderness, guarding, rebound, rigid Extremities exam: Present: normal inspection, full ROM, normal capillary refill. Absent: tenderness, pedal edema, joint swelling, calf tenderness Back exam: Present: normal inspection Neurological exam: Present: alert, oriented X3, CN II-XII intact Psychiatric exam: Present: normal affect, normal mood Skin exam: Present: warm, dry, intact, normal color. Absent: rash Course Vital Signs 03/10/22 12:35 Temperature 98.2 F Pulse Rate 57 L Respiratory 18 Rate Blood Pressure 137/73 O2 Sat by Pulse 100 Oximetry Medical Decision Making - Medical Decision Making Patient presents with injuries from a fall. She complains of pain in several areas. I obtained imaging of all these areas, including a CT of the abdomen and pelvis is of the belly pain. Everything was read by radiology showing no acute emergency at all. Patient's labs are within acceptable limits. She is feeling better. She is stable for discharge. - Lab Data Result diagrams: 03/10/22 13:29 03/10/22 13:29 Lab Results 03/10/22 03/10/22 Range/Units 13:29 13:29 WBC 6.3 (3.8-10.6) k/uL RBC 4.15 (3.80-5.40) m/uL Hgb 13.0 (11.4-16.0) gm/dL Hct 38.6 (34.0-46.0) % MCV 93.0 (80.0-100.0) fL MCH 31.4 (25.0-35.0) pg MCHC 33.8 (31.0-37.0) g/dL RDW 12.8 (11.5-15.5) % Plt Count 189 (150-450) k/uL MPV 7.5 Neutrophils % 54 % Lymphocytes % 34 % Monocytes % 5 % Eosinophils % 4 % Basophils % 1 % Neutrophils # 3.4 (1.3-7.7) k/uL Lymphocytes # 2.1 (1.0-4.8) k/uL Monocytes # 0.3 (0-1.0) k/uL Eosinophils # 0.3 (0-0.7) k/uL Basophils # 0.1 (0-0.2) k/uL Sodium 138 (137-145) mmol/L Potassium 4.0 (3.5-5.1) mmol/L Chloride 111 H (98-107) mmol/L Carbon Dioxide 25 (22-30) mmol/L Anion Gap 2 mmol/L BUN 16 (7-17) mg/dL Creatinine 0.86 (0.52-1.04) mg/dL Est GFR (CKD-EPI)AfAm 72 (>60 ml/min/1.73 sqM) Est GFR (CKD-EPI)NonAf 62 (>60 ml/min/1.73 sqM) Glucose 98 (74-99) mg/dL Calcium 8.5 (8.4-10.2) mg/dL Disposition Clinical Impression: Fall Disposition: HOME SELF-CARE Condition: Good Instructions (If sedation given, give patient instructions): Fall Prevention for Older Adults (ED), Rib Contusion (ED) Is patient prescribed a controlled substance at d/c from ED?: No Referrals: Jessenia Grant MD [Primary Care Provider] - 1-2 days
[2022-03-10 15:55] VITALS: BP 158/75; PULSE 55; TEMP 97.9
== END 2022-03-10 15:55 | disposition home or self-care (01) ==
LOC: EC 12:29
DX: M79.604 Pain in right leg (principal); E11.9 Type 2 diabetes mellitus without complications; I10 Essential (primary) hypertension; Z87.891 Personal history of nicotine dependence; Z88.5 Allergy status to narcotic agent; W19.XXXA Unspecified fall, initial encounter
CPT/HCPCS: 36415; 80048; 85025; 71101; 72170; 73552; 73560; 74177; 99284; 96360; Q9967

== ENCOUNTER 2022-07-21 18:17 | Emergency (ER) | payer MEDICARE ==
[2022-07-21 18:26] VITALS: RESP 18; TEMP 98.6
[2022-07-21] MEDS ORDERED: SODIUM CHLORIDE 0.9% 500 ML 500 ML IV ONE (19:09)
[2022-07-21 20:09] LABS: Basophils % (A) 0 %; Eosinophils # (A) 0.2 k/uL (0-0.7); Eosinophils % (A) 3 %; HGB 12.5 gm/dL (11.4-16.0); Lymphocytes % (A) 24 %; MCH 30.3 pg (25.0-35.0); MCV 91.9 fL (80.0-100.0); Mean Platelet Volume 8.6; Monocytes # (A) 0.5 k/uL (0-1.0); Monocytes % (A) 6 %; Neutrophils # (A) 5.4 k/uL (1.3-7.7); Neutrophils % (A) 65 %; Platelet Count 177 k/uL (150-450); RBC 4.14 m/uL (3.80-5.40); RDW 13.1 % (11.5-15.5); WBC 8.4 k/uL (3.8-10.6)
[2022-07-21 20:27] LABS: Albumin 3.6 g/dL (3.5-5.0); Calcium 8.7 mg/dL (8.4-10.2); Potassium 4.1 mmol/L (3.5-5.1); Total Bilirubin 0.8 mg/dL (0.2-1.3); Total Protein 6.2 g/dL (6.3-8.2)
--- NOTE | 2022-07-21 20:39 | XR ---
EXAMINATION TYPE: XR chest 2V DATE OF EXAM: 07/21/2022 8:03 PM COMPARISON: Chest radiographs from 03/10/2022 TECHNIQUE: XR chest 2V Frontal and lateral views of the chest. CLINICAL INDICATION:Female, 87 years old with history of altered mental status; FINDINGS: Lungs/Pleura: There is no evidence of pleural effusion, focal consolidation, or pneumothorax. Pulmonary vascularity: Unremarkable. Heart/mediastinum: Cardiomediastinal silhouette is unremarkable. Musculoskeletal: No acute osseous pathology. IMPRESSION: No acute cardiopulmonary disease/process.
--- NOTE | 2022-07-21 20:42 | CT ---
EXAMINATION TYPE: CT brain wo con CT DLP: 1099.4 mGycm, Automated exposure control for dose reduction was used. DATE OF EXAM: 07/21/2022 8:19 PM COMPARISON: 08/31/2021 CT, brain MRI 08/25/2021 CLINICAL INDICATION:Female, 87 years old with history of Altered mental status, AMS/ confusion TECHNIQUE: Brain: Axial CT images of the brain were obtained with coronal and sagittal reformats created and rev iewed. Contrast used: None. Oral contrast used: None. FINDINGS: Brain: Extra-axial spaces: No abnormal extra-axial fluid collections. Ventricular system: Dilatation in proportion to cerebral atrophy. Cerebral parenchyma: Remote injury of the right frontal lobe. Cerebral atrophy. No acute intraparench ymal hemorrhage or mass effect. The vital-white junction is well differentiated. Scattered hypoattenu ating areas are seen within the white matter. Cerebellum: Unremarkable. Mass effect: No evidence of midline shift. Intracranial vasculature: Atherosclerotic calcifications of the intracranial vessels. Soft tissues: Normal. Calvarium/osseous structures: No depressed skull fracture. Paranasal sinuses and mastoid air cells: Mild scattered paranasal sinus disease. Visualized orbits: Bilateral aphakia IMPRESSION: 1. No acute intracranial process. 2. Remote right frontal lobe injury along with Nonspecific white matter changes, likely secondary to chronic small vessel ischemic disease.
[2022-07-21 20:46] LABS: Prothrombin Time 11.1 sec (9.0-12.0)
[2022-07-21 20:48] LABS: Partial Thromboplastin Time 19.1 sec (22.0-30.0)
[2022-07-21 21:18] LABS: Appearance,Urine Clear (Clear); Bilirubin,Urine Negative (Negative); Blood,Urine Negative (Negative); Color,Urine Yellow; Glucose,Urine (UA) 4+ (Negative); Hyaline Casts,Urine 1 /lpf (0-2); Ketones,Urine Negative (Negative); Leukocyte Esterase,Urine Moderate (Negative); Mucus,Urine Rare /hpf; Nitrite,Urine Negative (Negative); PH, Urine 5.5 (5.0-8.0); Protein,Urine Trace (Negative); RBC,Urine 2 /hpf (0-5); Specific Gravity,Urine 1.026 (1.001-1.035); Squamous Epithelial Cell,Urine <1 /hpf (0-4); Urobilinogen,Urine <2.0 mg/dL (<2.0); WBC,Urine 7 /hpf (0-5)
[2022-07-21] MEDS ORDERED: cefTRIAXone IN SWFI 1,000 MG/10 ML SYRINGE IVP STA (22:07)
--- NOTE | 2022-07-21 22:09 | ED ---
Altered Mental Status HPI - General Chief Complaint: Altered Mental Status Stated Complaint: confusion Time Seen by Provider: 07/21/22 19:03 Source: patient, EMS Mode of arrival: EMS Limitations: no limitations - History of Present Illness Initial Comments: Patient is an 87-year-old female presenting for evaluation of altered mental status. Patient's daughter at bedside states that for the last 3 days she has been showing signs of worsening confusion when talking to her. Patient has a history of UTIs and has had a similar presentation with previous UTIs. Patient lives alone and receives homecare every evening. Patient denies any recent falls or head injury, she is not on any blood thinners. Patient states "I feel fine". She denies any chest pain, difficulty breathing, fever, chills, nausea, vomiting, abdominal pain, headache, neck pain or stiffness, vision or hearing changes, numbness, tingling, weakness, cough, congestion, sore throat, dysuria, hematuria. - Related Data Home Medications Medication Instructions Recorded Confirmed Famotidine 40 mg PO HS 07/14/16 08/31/21 Insulin Aspart [NovoLOG] 5 - 15 units SQ AC-TID 07/14/16 08/31/21 Insulin Glargine [Lantus Vial] 20 unit SQ BID 07/14/16 08/31/21 Krill Oil 1 tab PO DAILY 07/14/16 08/31/21 L.acidoph,Paracasei, B.lactis 1 tab PO DAILY 07/14/16 08/31/21 [Probiotic] Multivitamins, Thera [Multivitamin 1 tab PO DAILY 07/14/16 08/31/21 (formulary)] Selenium 100 mcg PO DAILY 07/14/16 08/31/21 Biotin [Biotin Disolve] 5,000 mcg PO DAILY 07/15/18 08/31/21 Calcium Carbonate/Vitamin D3 1 each PO DAILY 07/15/18 08/31/21 [Calcium 600-Vit D3 5 Mcg (200 Iu)] Diclofenac Sodium [Voltaren Gel] 4 gram TOPICAL DAILY PRN 07/15/18 08/31/21 Losartan [Cozaar] 50 mg PO DAILY 07/15/18 08/31/21 Ubidecarenone [Co Q-10] 400 mg PO DAILY 07/15/18 08/31/21 Cholecalciferol [Vitamin D3 (25 50 mcg PO DAILY 08/31/21 08/31/21 Mcg = 1000 Iu)] Cyanocobalamin (Vitamin B-12) 1,000 mcg PO DAILY 08/31/21 08/31/21 [Vitamin B-12] Donepezil [Aricept] 10 mg PO DAILY 08/31/21 08/31/21 Glimepiride [Amaryl] 2 mg PO DAILY 08/31/21 08/31/21 Magnesium 500 mg PO DAILY 08/31/21 08/31/21 Nystatin/Triamcin 1 applic TOPICAL DAILY PRN 08/31/21 08/31/21 [Nystatin-Triamcinolone] QUEtiapine [SEROquel] 25 mg PO BID 08/31/21 08/31/21 Rosuvastatin Calcium [Crestor] 5 mg PO MOWE 08/31/21 08/31/21 Stool Softner (Unknown) (Otc) 1 tab PO DAILY PRN 08/31/21 08/31/21 Triamcinolone 0.025% Cream 1 applic TOPICAL DAILY PRN 08/31/21 08/31/21 [Kenalog 0.025% Cream] Triamcinolone Acetonide [Nasacort] 1 spray EA NOSTRIL DAILY PRN 08/31/21 08/31/21 metFORMIN HCL ER [Glucophage XR] 500 mg PO BID 08/31/21 08/31/21 Previous Rx's Medication Instructions Recorded ALPRAZolam [Xanax] 0.25 mg PO DAILY PRN #12 tab 09/05/21 Acetaminophen Tab [Tylenol] 650 mg PO Q6HR PRN tab 09/05/21 Carbidopa-Levodopa ER 25-100Mg 2.5 each PO TID tab 09/05/21 [Sinemet CR 25-100 mg] Gabapentin [Neurontin] 100 mg PO HS #4 cap 09/05/21 HYDROcodone/APAP 7.5-325MG [[place] 1 tab PO Q8H PRN #16 tab 09/05/21 7.5-325] Sulfamethox-Tmp 800-160Mg [Bactrim 1 tab PO Q12HR 5 Days #10 tab 07/21/22 DS 800-160 mg] Allergies Allergy/AdvReac Type Severity Reaction Status Date / Time codeine AdvReac Hallucinati Verified 02/23/20 20:36 ons Review of Systems ROS Statement: Those systems with pertinent positive or pertinent negative responses have been documented in the HPI. ROS Other: All systems not noted in ROS Statement are negative. Past Medical History Past Medical History: Diabetes Mellitus, Hypertension Additional Past Medical History / Comment(s): Parkinsons, Arthritis, diverticulitis History of Any Multi-Drug Resistant Organisms: None Reported Past Surgical History: Joint Replacement, Tonsillectomy Past Anesthesia/Blood Transfusion Reactions: No Reported Reaction Past Psychological History: No Psychological Hx Reported Smoking Status: Never smoker Past Alcohol Use History: Occasional Past Drug Use History: None Reported General Exam Limitations: no limitations General appearance: alert, in no apparent distress Head exam: Present: atraumatic, normocephalic, normal inspection Eye exam: Present: normal appearance Neck exam: Present: normal inspection, full ROM Respiratory exam: Present: normal lung sounds bilaterally. Absent: respiratory distress, wheezes, rales, rhonchi, stridor Cardiovascular Exam: Present: regular rate, normal rhythm, normal heart sounds. Absent: systolic murmur, diastolic murmur, rubs, gallop, clicks GI/Abdominal exam: Present: soft. Absent: distended, tenderness, guarding, rebound, rigid Neurological exam: Present: alert, oriented X3, CN II-XII intact Psychiatric exam: Present: normal affect, normal mood Skin exam: Present: warm, dry, intact, normal color. Absent: rash Course Vital Signs 07/21/22 07/21/22 18:24 22:32 Temperature 98.6 F Pulse Rate 62 58 L Respiratory 18 18 Rate Blood Pressure 168/72 173/82 O2 Sat by Pulse 100 100 Oximetry Medical Decision Making - Medical Decision Making Patient is an 87-year-old female presenting for evaluation of altered mental status. Daughter at bedside states is been worsening over the last 3 days. Patient has history of UTIs, she has presented similarly with a UTI before. Physical examination is unremarkable. CBC shows no leukocytosis or anemia. BUN 18, likely due to hydration status, patient is receiving IV fluids. Troponin is negative at less than 0.012, EKG shows no ST deviation. Urine shows moderate leukocytes and WBCs 7, patient will be treated for UTI here in the ER with Rocephin, prescription for Bactrim is sent to her pharmacy. Chest x-ray shows no acute cardiopulmonary process and CT of the brain without contrast shows no acute intracranial process. AMS likely due to UTI, patient will be treated with Bactrim in the outpatient setting. Follow-up with PCP. Report back to ER with any new or worsening symptoms. Discussed return parameters and answered all questions. Patient conveyed verbal understanding and agreed to the plan. I discussed this case in detail with my attending Dr. Soria. - Lab Data Result diagrams: 07/21/22 19:52 07/21/22 19:52 Lab Results 07/21/22 07/21/22 07/21/22 Range/Units 19:52 19:52 19:52 WBC 8.4 (3.8-10.6) k/uL RBC 4.14 (3.80-5.40) m/uL Hgb 12.5 (11.4-16.0) gm/dL Hct 38.0 (34.0-46.0) % MCV 91.9 (80.0-100.0) fL MCH 30.3 (25.0-35.0) pg MCHC 33.0 (31.0-37.0) g/dL RDW 13.1 (11.5-15.5) % Plt Count 177 (150-450) k/uL MPV 8.6 Neutrophils % 65 % Lymphocytes % 24 % Monocytes % 6 % Eosinophils % 3 % Basophils % 0 % Neutrophils # 5.4 (1.3-7.7) k/uL Lymphocytes # 2.0 (1.0-4.8) k/uL Monocytes # 0.5 (0-1.0) k/uL Eosinophils # 0.2 (0-0.7) k/uL Basophils # 0.0 (0-0.2) k/uL PT 11.1 (9.0-12.0) sec INR 1.0 (<1.2) APTT 19.1 L (22.0-30.0) sec Sodium 137 (137-145) mmol/L Potassium 4.1 (3.5-5.1) mmol/L Chloride 105 (98-107) mmol/L Carbon Dioxide 26 (22-30) mmol/L Anion Gap 6 mmol/L BUN 18 H (7-17) mg/dL Creatinine 0.75 (0.52-1.04) mg/dL Est GFR (CKD-EPI)AfAm 84 (>60 ml/min/1.73 sqM) Est GFR (CKD-EPI)NonAf 73 (>60 ml/min/1.73 sqM) Glucose 170 H (74-99) mg/dL Calcium 8.7 (8.4-10.2) mg/dL Total Bilirubin 0.8 (0.2-1.3) mg/dL AST 21 (14-36) U/L ALT 8 (4-34) U/L Alkaline Phosphatase 94 (38-126) U/L Ammonia (<30) umol/L Troponin I (0.000-0.034) ng/mL Total Protein 6.2 L (6.3-8.2) g/dL Albumin 3.6 (3.5-5.0) g/dL Urine Color Urine Appearance (Clear) Urine pH (5.0-8.0) Ur Specific [place] (1.001-1.035) Urine Protein (Negative) Urine Glucose (UA) (Negative) Urine Ketones (Negative) Urine Blood (Negative) Urine Nitrite (Negative) Urine Bilirubin (Negative) Urine Urobilinogen (<2.0) mg/dL Ur Leukocyte Esterase (Negative) Urine RBC (0-5) /hpf Urine WBC (0-5) /hpf Ur Squamous Epith Cells (0-4) /hpf Hyaline Casts (0-2) /lpf Urine Mucus (None) /hpf 07/21/22 07/21/22 07/21/22 Range/Units 19:52 20:44 21:17 WBC (3.8-10.6) k/uL RBC (3.80-5.40) m/uL Hgb (11.4-16.0) gm/dL Hct (34.0-46.0) % MCV (80.0-100.0) fL MCH (25.0-35.0) pg MCHC (31.0-37.0) g/dL RDW (11.5-15.5) % Plt Count (150-450) k/uL MPV Neutrophils % % Lymphocytes % % Monocytes % % Eosinophils % % Basophils % % Neutrophils # (1.3-7.7) k/uL Lymphocytes # (1.0-4.8) k/uL Monocytes # (0-1.0) k/uL Eosinophils # (0-0.7) k/uL Basophils # (0-0.2) k/uL PT (9.0-12.0) sec INR (<1.2) APTT (22.0-30.0) sec Sodium (137-145) mmol/L Potassium (3.5-5.1) mmol/L Chloride (98-107) mmol/L Carbon Dioxide (22-30) mmol/L Anion Gap mmol/L BUN (7-17) mg/dL Creatinine (0.52-1.04) mg/dL Est GFR (CKD-EPI)AfAm (>60 ml/min/1.73 sqM) Est GFR (CKD-EPI)NonAf (>60 ml/min/1.73 sqM) Glucose (74-99) mg/dL Calcium (8.4-10.2) mg/dL Total Bilirubin (0.2-1.3) mg/dL AST (14-36) U/L ALT (4-34) U/L Alkaline Phosphatase (38-126) U/L Ammonia <9 (<30) umol/L Troponin I <0.012 (0.000-0.034) ng/mL Total Protein (6.3-8.2) g/dL Albumin (3.5-5.0) g/dL Urine Color Yellow Urine Appearance Clear (Clear) Urine pH 5.5 (5.0-8.0) Ur Specific [place] 1.026 (1.001-1.035) Urine Protein Trace H (Negative) Urine Glucose (UA) 4+ H (Negative) Urine Ketones Negative (Negative) Urine Blood Negative (Negative) Urine Nitrite Negative (Negative) Urine Bilirubin Negative (Negative) Urine Urobilinogen <2.0 (<2.0) mg/dL Ur Leukocyte Esterase Moderate H (Negative) Urine RBC 2 (0-5) /hpf Urine WBC 7 H (0-5) /hpf Ur Squamous Epith Cells <1 (0-4) /hpf Hyaline Casts 1 (0-2) /lpf Urine Mucus Rare H (None) /hpf - EKG Data -: EKG Interpreted by Id EKG Comments: Electronic atrial and ventricular pacemaker. Rate is 56. NM interval 297. QRS 145. QTC 488. QTC 479. T-wave inversion of indeterminate age seen in leads 2, 3, and aVF. No ST deviation. EKG was also shown to and interpreted by my attending Dr. Soria Disposition Clinical Impression: UTI (urinary tract infection) Disposition: HOME SELF-CARE Condition: Good Instructions (If sedation given, give patient instructions): Urinary Tract Infection in Women (ED), Altered Mental Status (ED) Additional Instructions: Follow-up with PCP. Report back to ER with any new or worsening symptoms. Take medication as prescribed. Prescriptions: Sulfamethox-Tmp 800-160Mg [Bactrim DS 800-160 mg] 1 tab PO Q12HR 5 Days #10 tab Is patient prescribed a controlled substance at d/c from ED?: No Referrals: Jessenia Grant MD [Primary Care Provider] - 1-2 days Time of Disposition: 22:09
[2022-07-21 22:34] VITALS: BP 173/82; PULSE 58
== END 2022-07-21 22:34 | disposition home or self-care (01) ==
LOC: EC 18:17
DX: N39.0 Urinary tract infection, site not specified (principal); E11.9 Type 2 diabetes mellitus without complications; I10 Essential (primary) hypertension; Z79.811 Long term (current) use of aromatase inhibitors; Z79.84 Long term (current) use of oral hypoglycemic drugs; Z79.899 Other long term (current) drug therapy; Z88.5 Allergy status to narcotic agent
CPT/HCPCS: 36415; 93005; 80053; 82140; 84484; 85025; 85610; 85730; 81001; 71046; 70450; 99285; 96374; J0696

== ENCOUNTER 2022-12-19 22:30 | Observation (INO) | payer MEDICARE ==
[2022-12-19 23:42] LABS: Basophils % (A) 0 %; Eosinophils # (A) 0.4 k/uL (0-0.7); Eosinophils % (A) 5 %; HGB 12.9 gm/dL (11.4-16.0); Lymphocytes # (A) 1.7 k/uL (1.0-4.8); Lymphocytes % (A) 22 %; MCH 29.2 pg (25.0-35.0); MCHC 32.3 g/dL (31.0-37.0); MCV 90.3 fL (80.0-100.0); Mean Platelet Volume 7.4; Monocytes # (A) 0.4 k/uL (0-1.0); Monocytes % (A) 6 %; Neutrophils # (A) 5.1 k/uL (1.3-7.7); Neutrophils % (A) 65 %; Platelet Count 224 k/uL (150-450); RBC 4.43 m/uL (3.80-5.40); RDW 12.3 % (11.5-15.5); WBC 7.8 k/uL (3.8-10.6)
--- NOTE | 2022-12-19 23:49 | XR ---
EXAMINATION TYPE: XR chest 2V DATE OF EXAM: 12/19/2022 COMPARISON: Chest x-ray July 21, 2022 HISTORY: Altered mental status and weakness. TECHNIQUE: Frontal and lateral views of the chest are obtained. FINDINGS: There is no suspicious focal air space opacity, pleural effusion, or pneumothorax seen. T he cardiac silhouette size is stable and upper limits of normal with dual lead pacemaker redemonstrat ed. Bridging osteophytes in the thoracic spine again seen. Correlate for DISH. IMPRESSION: No acute cardiopulmonary process. No significant change from prior.
[2022-12-19 23:52] LABS: ALT 13 U/L (4-34); AST 19 U/L (14-36); African American GFR (CKD) >90 (>60 ml/min/1.73 sqM); Albumin 3.3 g/dL (3.5-5.0); Alkaline Phosphatase 65 U/L (38-126); Anion Gap 5 mmol/L; Blood Urea Nitrogen 16 mg/dL (7-17); Calcium 8.7 mg/dL (8.4-10.2); Carbon Dioxide 29 mmol/L (22-30); Chloride 105 mmol/L (98-107); Glucose 117 mg/dL (74-99); Lipase 48 U/L (23-300); Magnesium 1.7 mg/dL (1.6-2.3); Non-African American GFR(CKD) 79 (>60 ml/min/1.73 sqM); Potassium 4.3 mmol/L (3.5-5.1); Sodium 139 mmol/L (137-145); Total Bilirubin 0.7 mg/dL (0.2-1.3); Total Protein 6.3 g/dL (6.3-8.2)
--- NOTE | 2022-12-20 00:37 | ED ---
General Adult HPI - General Chief complaint: Anxiety Stated complaint: Mental Health Time Seen by Provider: 12/19/22 22:35 Source: patient, family, EMS Mode of arrival: EMS Limitations: no limitations - History of Present Illness Initial comments: This is an 87-year-old female with a past mental history including Parkinson's disease and diabetes presented to the emergency department via EMS for possible failure to thrive and increased lethargy. It was reported by the patient's caregiver at the bedside that the patient has had increased lethargy and failure to thrive with noncompliance with medications. The patient is normally ANO 4 and able to care for herself while having home care 18 hours per day. Was reported the patient is had increasing noncompliance and has had increasing depression. Is reported that the patient had a recent breakup and was not really fully responsive being fully responsive to the patient caregiver at home. The patient did state in her stool throughout the day yesterday which is unlike her. The patient on arrival denied any acute pain or distress or any pain. The patient was ANO 4 but weren't deflect questions to other topics. The patient cannot provide any other details at this time. The patient was resting in bed comfortably. - Related Data Home Medications Medication Instructions Recorded Confirmed Famotidine 40 mg PO HS 07/14/16 08/31/21 Insulin Aspart [NovoLOG] 5 - 15 units SQ AC-TID 07/14/16 08/31/21 Insulin Glargine [Lantus Vial] 20 unit SQ BID 07/14/16 08/31/21 Krill Oil 1 tab PO DAILY 07/14/16 08/31/21 L.acidoph,Paracasei, B.lactis 1 tab PO DAILY 07/14/16 08/31/21 [Probiotic] Multivitamins, Thera [Multivitamin 1 tab PO DAILY 07/14/16 08/31/21 (formulary)] Selenium 100 mcg PO DAILY 07/14/16 08/31/21 Biotin [Biotin Disolve] 5,000 mcg PO DAILY 07/15/18 08/31/21 Calcium Carbonate/Vitamin D3 1 each PO DAILY 07/15/18 08/31/21 [Calcium 600-Vit D3 5 Mcg (200 Iu)] Diclofenac Sodium [Voltaren Gel] 4 gram TOPICAL DAILY PRN 07/15/18 08/31/21 Losartan [Cozaar] 50 mg PO DAILY 07/15/18 08/31/21 Ubidecarenone [Co Q-10] 400 mg PO DAILY 07/15/18 08/31/21 Cholecalciferol [Vitamin D3 (25 50 mcg PO DAILY 08/31/21 08/31/21 Mcg = 1000 Iu)] Cyanocobalamin (Vitamin B-12) 1,000 mcg PO DAILY 08/31/21 08/31/21 [Vitamin B-12] Donepezil [Aricept] 10 mg PO DAILY 08/31/21 08/31/21 Glimepiride [Amaryl] 2 mg PO DAILY 08/31/21 08/31/21 Magnesium 500 mg PO DAILY 08/31/21 08/31/21 Nystatin/Triamcin 1 applic TOPICAL DAILY PRN 08/31/21 08/31/21 [Nystatin-Triamcinolone] QUEtiapine [SEROquel] 25 mg PO BID 08/31/21 08/31/21 Rosuvastatin Calcium [Crestor] 5 mg PO MOWE 08/31/21 08/31/21 Stool Softner (Unknown) (Otc) 1 tab PO DAILY PRN 08/31/21 08/31/21 Triamcinolone 0.025% Cream 1 applic TOPICAL DAILY PRN 08/31/21 08/31/21 [Kenalog 0.025% Cream] Triamcinolone Acetonide [Nasacort] 1 spray EA NOSTRIL DAILY PRN 08/31/21 08/31/21 metFORMIN HCL ER [Glucophage XR] 500 mg PO BID 08/31/21 08/31/21 Previous Rx's Medication Instructions Recorded ALPRAZolam [Xanax] 0.25 mg PO DAILY PRN #12 tab 09/05/21 Acetaminophen Tab [Tylenol] 650 mg PO Q6HR PRN tab 09/05/21 Carbidopa-Levodopa ER 25-100Mg 2.5 each PO TID tab 09/05/21 [Sinemet CR 25-100 mg] Gabapentin [Neurontin] 100 mg PO HS #4 cap 09/05/21 HYDROcodone/APAP 7.5-325MG [[place] 1 tab PO Q8H PRN #16 tab 09/05/21 7.5-325] Sulfamethox-Tmp 800-160Mg [Bactrim 1 tab PO Q12HR 5 Days #10 tab 07/21/22 DS 800-160 mg] Allergies Allergy/AdvReac Type Severity Reaction Status Date / Time codeine AdvReac Hallucinati Verified 02/23/20 20:36 ons Review of Systems ROS Statement: Those systems with pertinent positive or pertinent negative responses have been documented in the HPI. ROS Other: All systems not noted in ROS Statement are negative. Past Medical History Past Medical History: Diabetes Mellitus, Hypertension Additional Past Medical History / Comment(s): Parkinsons, Arthritis, diverticulitis History of Any Multi-Drug Resistant Organisms: None Reported Past Surgical History: Joint Replacement, Tonsillectomy Past Anesthesia/Blood Transfusion Reactions: No Reported Reaction Past Psychological History: No Psychological Hx Reported Smoking Status: Never smoker Past Alcohol Use History: Occasional Past Drug Use History: None Reported General Exam Limitations: no limitations General appearance: alert, in no apparent distress, obese Head exam: Present: atraumatic, normocephalic, normal inspection Eye exam: Present: normal appearance, PERRL Pupils: Present: normal accommodation ENT exam: Present: normal exam, normal oropharynx, mucous membranes moist Neck exam: Present: normal inspection, full ROM Respiratory exam: Present: normal lung sounds bilaterally Cardiovascular Exam: Present: regular rate, normal rhythm, normal heart sounds GI/Abdominal exam: Present: soft, normal bowel sounds Extremities exam: Present: normal inspection, full ROM Back exam: Present: normal inspection, full ROM Neurological exam: Present: alert, oriented X3, CN II-XII intact Psychiatric exam: Present: normal affect, normal mood Skin exam: Present: warm, dry Course Vital Signs 12/19/22 12/20/22 12/20/22 22:32 01:29 05:16 Temperature 98.8 F Pulse Rate 58 L 52 L 57 L Respiratory 16 16 16 Rate Blood Pressure 155/70 152/66 150/67 O2 Sat by Pulse 97 97 97 Oximetry EKG Findings - EKG Comments: EKG Findings:: An EKG was obtained and was interpreted by myself showing a rate of 60, OH interval of 231, QRS duration 96 and QTC of 445. This EKG showed a normal sinus rhythm with a first-degree AV block. There was no ST segment elevation or depression noted. Medical Decision Making - Medical Decision Making Was pt. sent in by a medical professional or institution (, PA, CREDIT RISK OFFICER, urgent care, hospital, or residential...) When possible be specific @ -Yes, caregiver at home Did you speak to anyone other than the patient for history (EMS, parent, family, police, friend...)? What history was obtained from this source @ -Yes, caregiver at bedside who stated the patient has been more withdrawn and has had inability to care for herself at home with worsening cognitive function over the last several weeks worsening over the last 2 days. Did you review nursing and triage notes (agree or disagree)? Why? @ -I reviewed and agree with nursing and triage notes Were old charts reviewed (outside hosp., previous admission, EMS record, old EKG, old radiological studies, urgent care reports/EKG's, residential records)? Report findings @ -No old charts were reviewed Differential Diagnosis (chest pain, altered mental status, abdominal pain women, abdominal pain men, vaginal bleeding, weakness, fever, dyspnea, syncope, headache, dizziness, GI bleed, back pain, seizure, CVA, palpatations, mental health)? @ -Worsening Alzheimer's, UTI, sepsis, depression EKG interpreted by me (3pts min.). @ -As above X-rays interpreted by me (1pt min.). @ -Chest x-ray was obtained and was interpreted by myself showing no acute process. CT interpreted by me (1pt min.). @ -None done U/S interpreted by me (1pt. min.). @ -None done What testing was considered but not performed or refused? (CT, X-rays, U/S, labs)? Why? @ -None What meds were considered but not given or refused? Why? @ -None Did you discuss the management of the patient with other professionals (professionals i.e. GEORGI Faith, CREDIT RISK OFFICER, lab, RT, psych nurse, administrator social welfare, chef, teacher, casino surveillance officer, wrapper caser)? Give summary @ -Yes, admitting physician was contacted regarding patient admission. Was smoking cessation discussed for >3mins.? @ -No Was critical care preformed (if so, how long)? @ -No Were there social determinants of health that impacted care today? How? (Ho melessness, low income, unemployed, alcoholism, drug addiction, transportation, low edu. Level, literacy, decrease access to med. care, [facility], rehab)? @ -No Was there de-escalation of care discussed even if they declined (Discuss DNR or withdrawal of care, Hospice)? DNR status @ -No What co-morbidities impacted this encounter? (DM, HTN, Smoking, COPD, CAD, Cancer, CVA, ARF, Chemo, Hep., AIDS, mental health diagnosis, sleep apnea, morbid obesity)? @ -Hypertension, diabetes, Parkinson's disease Was patient admitted / discharged? Hospital course, mention meds given and route, prescriptions, significant lab abnormalities, going to OR and other pertinent info. @ -The patient was seen and evaluated emergency department. Physical exam, the patient was resting in bed without any acute distress. The patient was ANO 4 throughout her stay in the hospital however had intermittent confusion and episodes of inability to comprehend what was just said. The caregiver did continue to demonstrate that the patient has had inability to care for herself at home and worsening cognitive function over the last several weeks. Due to the patient stated thrive at home, the patient will be admitted for further evaluation and possible placement. Laboratory workup was largely within normal limits however urinalysis was positive for UTI and the patient was given Rocephin. The patient was ultimately agreeable to admission and was admitted in stable condition. Undiagnosed new problem with uncertain prognosis? @ -No Drug Therapy requiring intensive monitoring for toxicity (Heparin, Nitro, Insulin, Cardizem)? @ -No Were any procedures done? @ -No Diagnosis/symptom? @ -Failure to thrive, UTI Acute, or Chronic, or Acute on Chronic? @ -Acute on chronic Uncomplicated (without systemic symptoms) or Complicated (systemic symptoms)? @ -Complicated Side effects of treatment? @ -No Exacerbation, Progression, or Severe Exacerbation? @ -No Poses a threat to life or bodily function? How? (Chest pain, [place], [place], pneumonia, PE, COPD, DKA, ARF, appy, cholecystitis, CVA, Diverticulitis, Homicidal, Suicidal, threat to staff... and all critical care pts) @ -Yes, worsening failure to thrive can lead to damage and possible . - Lab Data Result diagrams: 12/19/22 23:33 12/19/22 23:33 Lab Results 12/19/22 12/19/22 12/19/22 Range/Units 23:32 23:33 23:33 WBC 7.8 (3.8-10.6) k/uL RBC 4.43 (3.80-5.40) m/uL Hgb 12.9 (11.4-16.0) gm/dL Hct 40.0 (34.0-46.0) % MCV 90.3 (80.0-100.0) fL MCH 29.2 (25.0-35.0) pg MCHC 32.3 (31.0-37.0) g/dL RDW 12.3 (11.5-15.5) % Plt Count 224 (150-450) k/uL MPV 7.4 Neutrophils % 65 % Lymphocytes % 22 % Monocytes % 6 % Eosinophils % 5 % Basophils % 0 % Neutrophils # 5.1 (1.3-7.7) k/uL Lymphocytes # 1.7 (1.0-4.8) k/uL Monocytes # 0.4 (0-1.0) k/uL Eosinophils # 0.4 (0-0.7) k/uL Basophils # 0.0 (0-0.2) k/uL Sodium 139 (137-145) mmol/L Potassium 4.3 (3.5-5.1) mmol/L Chloride 105 (98-107) mmol/L Carbon Dioxide 29 (22-30) mmol/L Anion Gap 5 mmol/L BUN 16 (7-17) mg/dL Creatinine 0.69 (0.52-1.04) mg/dL Est GFR (CKD-EPI)AfAm >90 (>60 ml/min/1.73 sqM) Est GFR (CKD-EPI)NonAf 79 (>60 ml/min/1.73 sqM) Glucose 117 H (74-99) mg/dL Calcium 8.7 (8.4-10.2) mg/dL Magnesium 1.7 (1.6-2.3) mg/dL Total Bilirubin 0.7 (0.2-1.3) mg/dL AST 19 (14-36) U/L ALT 13 (4-34) U/L Alkaline Phosphatase 65 (38-126) U/L Troponin I 0.024 (0.000-0.034) ng/mL Total Protein 6.3 (6.3-8.2) g/dL Albumin 3.3 L (3.5-5.0) g/dL Lipase 48 (23-300) U/L Urine Color Urine Appearance (Clear) Urine pH (5.0-8.0) Ur Specific [place] (1.001-1.035) Urine Protein (Negative) Urine Glucose (UA) (Negative) Urine Ketones (Negative) Urine Blood (Negative) Urine Nitrite (Negative) Urine Bilirubin (Negative) Urine Urobilinogen (<2.0) mg/dL Ur Leukocyte Esterase (Negative) Urine RBC (0-5) /hpf Urine WBC (0-5) /hpf Ur Squamous Epith Cells (0-4) /hpf Amorphous Sediment (None) /hpf Urine Bacteria (None) /hpf 12/20/22 Range/Units 05:17 WBC (3.8-10.6) k/uL RBC (3.80-5.40) m/uL Hgb (11.4-16.0) gm/dL Hct (34.0-46.0) % MCV (80.0-100.0) fL MCH (25.0-35.0) pg MCHC (31.0-37.0) g/dL RDW (11.5-15.5) % Plt Count (150-450) k/uL MPV Neutrophils % % Lymphocytes % % Monocytes % % Eosinophils % % Basophils % % Neutrophils # (1.3-7.7) k/uL Lymphocytes # (1.0-4.8) k/uL Monocytes # (0-1.0) k/uL Eosinophils # (0-0.7) k/uL Basophils # (0-0.2) k/uL Sodium (137-145) mmol/L Potassium (3.5-5.1) mmol/L Chloride (98-107) mmol/L Carbon Dioxide (22-30) mmol/L Anion Gap mmol/L BUN (7-17) mg/dL Creatinine (0.52-1.04) mg/dL Est GFR (CKD-EPI)AfAm (>60 ml/min/1.73 sqM) Est GFR (CKD-EPI)NonAf (>60 ml/min/1.73 sqM) Glucose (74-99) mg/dL Calcium (8.4-10.2) mg/dL Magnesium (1.6-2.3) mg/dL Total Bilirubin (0.2-1.3) mg/dL AST (14-36) U/L ALT (4-34) U/L Alkaline Phosphatase (38-126) U/L Troponin I (0.000-0.034) ng/mL Total Protein (6.3-8.2) g/dL Albumin (3.5-5.0) g/dL Lipase (23-300) U/L Urine Color Yellow Urine Appearance Turbid H (Clear) Urine pH 6.0 (5.0-8.0) Ur Specific [place] 1.037 H (1.001-1.035) Urine Protein 1+ H (Negative) Urine Glucose (UA) Negative (Negative) Urine Ketones 2+ H (Negative) Urine Blood Trace H (Negative) Urine Nitrite Negative (Negative) Urine Bilirubin Negative (Negative) Urine Urobilinogen <2.0 (<2.0) mg/dL Ur Leukocyte Esterase Large H (Negative) Urine RBC 25 H (0-5) /hpf Urine WBC 119 H (0-5) /hpf Ur Squamous Epith Cells 2 (0-4) /hpf Amorphous Sediment Few H (None) /hpf Urine Bacteria Occasional H (None) /hpf Disposition Clinical Impression: UTI (urinary tract infection), Failure to thrive Disposition: ADMITTED IP TO THIS [facility] Condition: Stable Is patient prescribed a controlled substance at d/c from ED?: No Referrals: Jessenia Grant MD [Primary Care Provider] - 1-2 days Time of Disposition: 05:00 Decision to Admit Reason: Admit from EC Decision Date: 12/20/22 Decision Time: 05:00
[2022-12-20 05:39] LABS: Amorphous Sediment,Urine Few /hpf; Appearance,Urine Turbid (Clear); Bacteria,Urine Occasional /hpf; Bilirubin,Urine Negative (Negative); Blood,Urine Trace (Negative); Color,Urine Yellow; Glucose,Urine (UA) Negative (Negative); Ketones,Urine 2+ (Negative); Leukocyte Esterase,Urine Large (Negative); Nitrite,Urine Negative (Negative); Protein,Urine 1+ (Negative); RBC,Urine 25 /hpf (0-5); Specific Gravity,Urine 1.037 (1.001-1.035); Squamous Epithelial Cell,Urine 2 /hpf (0-4); Urobilinogen,Urine <2.0 mg/dL (<2.0); WBC,Urine 119 /hpf (0-5)
[2022-12-20] MEDS ORDERED: cefTRIAXone IN SWFI 1,000 MG/10 ML SYRINGE IVP STA (06:12)
[2022-12-20] MEDS ORDERED: NALOXONE 0.4 MG/ML 1 ML VIAL IV PRN (06:13)
[2022-12-20] MEDS ORDERED: ACETAMINOPHEN TAB 325 MG TAB PO PRN (12:35)
[2022-12-20] MEDS ORDERED: HYDROCORTISONE 1% CREAM 30 GM TUBE TOPICAL PRN (12:35)
[2022-12-20] MEDS ORDERED: DEXTROSE 50% SYRINGE 50 ML IVP PRN ×2 (12:40)
--- NOTE | 2022-12-20 12:43 | P.HPIM ---
History of Present Illness H&P Date: 12/20/22 Patient is a 87-year-old female with history of Parkinson's disease, dementia, hypertension, dyslipidemia, insulin-dependent diabetes presenting from home with encephalopathy. Reportedly, patient has about 18 hours of home care services per day. Her home care nurse had noted that over the last 2-3 days patient has been swelling herself in her bed, and has been confused. Currently patient denies any chest pain, shortness of breath, abdominal pain, nausea, vomiting, diarrhea, constipation, or urinary complaints. She claims that she normally uses a walker at home and has been pretty independent. 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 In the ED, temperature was 98.8, pulse 58, blood pressure 155/70, respiratory rate 16, saturating at 97% on room air. EKG shows normal sinus rhythm with first-degree AV block. Chest x-ray shows no acute process. Laboratory workup showed normal CBC and BMP, glucose was 117. UA showed large leukocyte esterase, negative nitrites. Patient admitted for encephalopathy and urinary tract infection. Pertinent positives and negatives as discussed in HPI, a complete review of systems was performed and all other systems are negative. Patient seen and examined at bedside. Vital signs reviewed General: nontoxic, no distress, appears at stated age Derm: warm, dry Head: atraumatic, normocephalic, symmetric Eyes: EOMI, no lid lag, anicteric sclera, pupils equal round reactive to light ENT: Nose and ears atraumatic Neck: No thyromegaly, supple Mouth: no lip lesion, mucus membranes moist Cardiovascular: S1S2 reg, no murmur, no edema Lungs: clear to auscultation bilateral, no rhonchi, no rales, no wheeze, no accessory muscle use Abdominal: soft, nontender to palpation, no guarding, no appreciable organomegaly Ext: no gross muscle atrophy, muscle strength muscle strength 5 out of 5 in all 4 extremities, no contractures Neuro: CN II-XII grossly intact Psych: Alert, oriented, appropriate affect Assessment/Plan: Active: Urinary tract infection Acute on chronic metabolic encephalopathy Insulin-dependent diabetes -Continue IV ceftriaxone 1 g daily -Urine cultures ordered -Encephalopathy likely in the setting of urinary tract infection -Home [place] held -Holding metformin and glimepiride -Started on sliding scale insulin, A1c pending Chronic: Parkinson's disease Dementia Dyslipidemia Hypertension The patient is admitted with an anticipated greater than 2 midnight stay as inpatient status for evaluation of encephalopathy and UTI. Surrogate decision-maker: Son CODE STATUS: Full code DVT prophylaxis: Subcu Lovenox Anticipated discharge date: Pending clinical course Anticipated discharge place: Pending clinical course A total of 55 minutes was spent on the care of this complex patient more than 50% of the time was spent in counseling and care coordination. Past Medical History Past Medical History: Diabetes Mellitus, Hypertension Additional Past Medical History / Comment(s): Parkinsons, Arthritis, diverticulitis History of Any Multi-Drug Resistant Organisms: None Reported Past Surgical History: Joint Replacement, Tonsillectomy Additional Past Surgical History / Comment(s): belly surgery, cannot specify what exactly was done Past Anesthesia/Blood Transfusion Reactions: No Reported Reaction Past Psychological History: No Psychological Hx Reported Smoking Status: Never smoker Past Alcohol Use History: Occasional Past Drug Use History: None Reported Medications and Allergies Home Medications Medication Instructions Recorded Confirmed Type Famotidine 40 mg PO HS 07/14/16 12/20/22 History Losartan [Cozaar] 50 mg PO DAILY 07/15/18 12/20/22 History Donepezil [Aricept] 10 mg PO HS 08/31/21 12/20/22 History Glimepiride [Amaryl] 2 mg PO BID 08/31/21 12/20/22 History Nystatin/Triamcin 1 applic TOPICAL DAILY PRN 08/31/21 12/20/22 History [Nystatin-Triamcinolone] Rosuvastatin Calcium [Crestor] 5 mg PO MOWE 08/31/21 12/20/22 History Acetaminophen Tab [Tylenol] 650 mg PO Q6HR PRN tab 09/05/21 12/20/22 Rx Carbidopa-Levodopa 25-100 mg 2.5 tab PO TID 12/20/22 12/20/22 History [Sinemet 25-100] DULoxetine HCL [Cymbalta] 30 mg PO DAILY 12/20/22 12/20/22 History Gabapentin [Neurontin] 100 mg PO BID 12/20/22 12/20/22 History HYDROcodone/APAP 7.5-325MG [[place] 1 tab PO DAILY 12/20/22 12/20/22 History 7.5-325] Hydrocortisone Cream 1 applic TOPICAL BID PRN 12/20/22 12/20/22 History [Hydrocortisone 2.5% Cream] Insulin Aspart [NovoLOG Flexpen] See Protocol SQ AC-TID 12/20/22 12/20/22 History QUEtiapine FUMARATE [SEROquel] 25 mg PO BID 12/20/22 12/20/22 History metFORMIN HCL 1,000 mg PO BID 12/20/22 12/20/22 History Allergies Allergy/AdvReac Type Severity Reaction Status Date / Time codeine AdvReac Hallucinations, Verified 12/20/22 12:08 See Comment Physical Exam Vitals: Vital Signs Temp Pulse Pulse Resp BP BP Pulse Ox 12/20/22 07:34 98.4 F 54 L 15 165/60 98 12/20/22 06:31 55 L 16 153/74 97 12/20/22 05:16 57 L 16 150/67 97 12/20/22 01:29 52 L 16 152/66 97 12/19/22 22:32 98.8 F 58 L 16 155/70 97 Intake and Output 12/19/22 12/20/22 12/20/22 22:59 06:59 14:59 Other: Weight 81.647 kg 81.647 kg Results CBC & Chem 7: 12/19/22 23:33 12/19/22 23:33 Labs: Abnormal Lab Results - Last 24 Hours (Table) 12/19/22 12/20/22 Range/Units 23:33 05:17 Glucose 117 H (74-99) mg/dL Albumin 3.3 L (3.5-5.0) g/dL Urine Appearance Turbid H (Clear) Ur Specific [place] 1.037 H (1.001-1.035) Urine Protein 1+ H (Negative) Urine Ketones 2+ H (Negative) Urine Blood Trace H (Negative) Ur Leukocyte Esterase Large H (Negative) Urine RBC 25 H (0-5) /hpf Urine WBC 119 H (0-5) /hpf Amorphous Sediment Few H (None) /hpf Urine Bacteria Occasional H (None) /hpf Thrombosis Risk Factor Assmnt - Choose All That Apply Any of the Below Risk Factors Present?: Yes Each Factor Represents 1 point: Obesity (BMI >25) Other Risk Factors: Yes Each Risk Factor Represents 3 Points: Age 75 years or older Thrombosis Risk Factor Assessment Total Risk Factor Score: 4 Thrombosis Risk Factor Assessment Level: Moderate Risk
[2022-12-20] MEDS: CARBIDOPA-LEVODOPA 25-100 MG 1 EACH TAB PO SCH ×3 (13:28→21:31)
[2022-12-20] MEDS: GABAPENTIN 100 MG CAP PO SCH ×2 (13:28→21:20)
[2022-12-20] MEDS: DULoxetine HCL 30 MG CAPSULE.DR PO SCH (13:28)
[2022-12-20 17:21] LABS: Glucose,Whole Blood 281 mg/dL (70-110)
[2022-12-20] MEDS: INSULIN ASPART (NovoLOG) 100 UNIT/ML VIAL SQ SCH ×2 (17:22→21:20)
[2022-12-20 20:44] LABS: Glucose,Whole Blood 311 mg/dL (70-110)
[2022-12-20] MEDS: FAMOTIDINE 20 MG TAB PO SCH (21:20)
[2022-12-20] MEDS: QUEtiapine 25 MG TAB PO SCH (21:20)
[2022-12-20] MEDS: DONEPEZIL 10 MG TAB PO SCH (21:20)
[2022-12-21 06:21] LABS: Glucose,Whole Blood 132 mg/dL (70-110)
[2022-12-21] MEDS: INSULIN ASPART (NovoLOG) 100 UNIT/ML VIAL SQ SCH ×4 (06:24→21:23)
[2022-12-21] MEDS: CARBIDOPA-LEVODOPA 25-100 MG 1 EACH TAB PO SCH ×3 (09:52→20:57)
[2022-12-21] MEDS: ENOXAPARIN 40 MG/0.4 ML SYRINGE SQ SCH (09:52)
[2022-12-21] MEDS: QUEtiapine 25 MG TAB PO SCH ×2 (09:52→20:57)
[2022-12-21] MEDS: LOSARTAN 50 MG TAB PO SCH (09:52)
[2022-12-21] MEDS: GABAPENTIN 100 MG CAP PO SCH ×2 (09:52→20:57)
[2022-12-21] MEDS: DULoxetine HCL 30 MG CAPSULE.DR PO SCH (09:52)
[2022-12-21 11:27] LABS: Glucose,Whole Blood 272 mg/dL (70-110)
[2022-12-21] MEDS ORDERED: ATORVASTATIN 10 MG TAB PO SCH (12:35)
[2022-12-21 14:11] VITALS: BMI 30.9
--- NOTE | 2022-12-21 14:40 | P.PN ---
Subjective Progress Note Date: 12/21/22 Hospital course: Patient is a very pleasant 87-year-old female with past medical history of Parkinson's disease, dementia, hypertension, dyslipidemia, and insulin-dependent diabetes. She presented to the emergency department on 12/20/22 from [facility] with a chief complaint of worsening confusion, increased lethargy, and noncompliance with medications. Reportedly, patient lives in senior apartment/condo and has 18 hours of home care services each day. Per documentation in chart, pt's home care nurse had noted that over the previous 2- 3 days patient has been staying in bed, appearing depressed and has been more confused. Patient underwent full evaluation in the emergency department. Vital signs were unremarkable with temperature was 98.8, pulse 58, blood pressure 155/70, respiratory rate 16, saturating at 97% on room air. EKG shows normal s inus rhythm at 60 bpm with first-degree AV block with MI interval of 231 ms and T-wave inversion in aVL and V2 upon personal review and interpretation. Chest x-ray reviewed and was negative showing no acute process. Laboratory workup showed normal CBC and BMP, glucose was 117. UA positive for infection showing large leukocyte esterase, negative nitrites. Patient admitted for encephalopathy and urinary tract infection. Psychiatry also consulted for increased depression. Physical exam: Patient was seen and fully evaluated at bedside this morning. Patient was sitting up in chair and was alert to person, place, time, and situation. Patient reports that she lives in a condo and has 18 hours of nursing care provided per day. Patient ambulated 2 restroom with walker with a steady gait with no noted difficulties. Patient currently denies having any complaints at this time. Pertinent positives and negatives as discussed in HPI, a complete review of systems was performed and all other systems are negative. General: non toxic, no distress, appears at stated age Derm: warm, dry Head: atraumatic, normocephalic, symmetric Eyes: EOMI, no lid lag, anicteric sclera Mouth: no lip lesion, mucus membranes moist Cardiovascular: S1S2 reg, no murmur, positive posterior tibial pulse bilateral, Lungs: CTA bilateral, no rhonchi, no rales , no accessory muscle use Abdominal: soft, nontender to palpation, no guarding, no appreciable organomegaly Ext: no gross muscle atrophy, no edema, no contractures Neuro: CN II-XI grossly intact, no focal neuro deficits Psych: Alert, oriented, appropriate affect Assessment and Plan of Care: Urinary tract infection Acute on chronic metabolic encephalopathy Insulin-dependent diabetes Parkinson's disease Dementia Dyslipidemia Hypertension -Continue IV ceftriaxone 1 g daily -Urine culture pending, Will follow-up with results. -Encephalopathy likely in the setting of urinary tract infection vs increased depression -Home [place] held -Holding metformin and glimepiride -Started on sliding scale insulin, A1c pending Surrogate decision-maker: Son CODE STATUS: Full code DVT prophylaxis: Subcu Lovenox Anticipated discharge date: Pending clinical course Anticipated discharge place: Pending clinical course Patient was seen independently by Nurse Pracitioner. This document was prepared using [employer] dictation software. Please allow for errors in fly winder, while rare they do occur. I reviewed the documentation as provided by the IDANIA above, who is the original author of this note. I agree with the documented assessment and plan, with the following changes: none Objective - Vital Signs Vital signs: Vital Signs Temp 97.4 F L 12/21/22 07:11 Pulse 67 12/21/22 07:11 Resp 15 12/21/22 07:11 BP 131/68 12/21/22 07:11 Pulse Ox 92 L 12/21/22 07:11 FiO2 Intake & Output 12/20/22 12/21/22 12/21/22 18:59 06:59 18:59 Other: Voiding Method Diaper # Voids 3 2 - Labs CBC & Chem 7: 12/19/22 23:33 12/19/22 23:33 Labs: Abnormal Lab Results - Last 24 Hours (Table) 12/20/22 12/20/22 12/21/22 Range/Units 17:19 20:43 06:19 POC Glucose (mg/dL) 281 H 311 H 132 H (70-110) mg/dL
[2022-12-21 17:09] LABS: Glucose,Whole Blood 106 mg/dL (70-110)
[2022-12-21] MEDS: FAMOTIDINE 20 MG TAB PO SCH (20:57)
[2022-12-21] MEDS: DONEPEZIL 10 MG TAB PO SCH (20:57)
[2022-12-21 21:21] LABS: Glucose,Whole Blood 294 mg/dL (70-110)
[2022-12-22 06:19] LABS: Glucose,Whole Blood 193 mg/dL (70-110)
[2022-12-22] MEDS: INSULIN ASPART (NovoLOG) 100 UNIT/ML VIAL SQ SCH ×2 (06:35→12:09)
[2022-12-22 07:28] VITALS: PULSE 53; RESP 18; TEMP 97.7
[2022-12-22] MEDS: LOSARTAN 50 MG TAB PO SCH (07:52)
[2022-12-22] MEDS: GABAPENTIN 100 MG CAP PO SCH (07:52)
[2022-12-22] MEDS: CARBIDOPA-LEVODOPA 25-100 MG 1 EACH TAB PO SCH ×2 (07:52→15:07)
[2022-12-22] MEDS: ENOXAPARIN 40 MG/0.4 ML SYRINGE SQ SCH (07:52)
[2022-12-22] MEDS: QUEtiapine 25 MG TAB PO SCH (07:53)
[2022-12-22] MEDS: DULoxetine HCL 30 MG CAPSULE.DR PO SCH (07:53)
[2022-12-22 10:59] LABS: Glucose,Whole Blood 213 mg/dL (70-110)
--- NOTE | 2022-12-22 13:51 | P.CN ---
Psychiatric Consult - . Consult date: 12/22/22 Consult:: 12/22/22 13:50 IDENTIFYING DATA: Patient is a , retired, 87-year-old female with a significant history of Parkinson's disease who presented to our hospital on 12/20/2022 for increased confusion and low energy. HPI: Patient presented to the hospital on 12/20/2022, brought into the hospital for evaluation of low energy and confusion over the past 2-3 days. It was determined in the emergency department that the patient had a urinary tract infection. She was subsequently admitted medically and was given antibiotics. Her home [place] was held as well. Psychiatry has been consulted for evaluation and management of possible depression. Upon evaluation by the psychiatrist, the patient is currently alert and oriented in all spheres. She is unable to provide the exact history of events that led up to her hospitalization however is able to identify where she is currently, the city, hospital name, the date, who the current president is, and who she is. She is currently denying any suicidal or homicidal ideation, intention, and/or plan. She is not endorsing any significant symptoms of depression and is not reporting any issues regarding her appetite, her sleep, anhedonia, change in her hygiene and grooming, or any feelings of hopelessness or helplessness. She does not endorse any significant history of prior attempts at suicide. She denies any history of bipolar disorder. She reports no history of increased goal- directed activity, grandiosity, or mood lability. She denies any auditory or visual hallucinations. She reports no paranoia or other delusions. The patient is currently on a home regimen of Cymbalta and Seroquel however the patient is unable to recall why she is being prescribed these medications. The patient does understand that she had a urinary tract infection upon admission. The patient reports that she receives "around the clock" care at home. She also reports that she has significant family support including her son and daughter who are employees at [employer]. She has been since January [id number] after being for 65 years. She is however not endorsing any significant issues regarding her mood at this time. PAST PSYCHIATRIC HISTORY: Patient does not endorse any significant history of mental illness however as per chart review she has a previous diagnosis of Parkinson's disease and possible dementia. She is currently prescribed a home regimen including Seroquel, Cymbalta, and donepezil. Patient denies any previous psychiatric hospitalizations. Patient denies any psychiatric outpatient follow-up. Patient denies any history of suicide attempts in the past. PMH: Past Medical History: Diabetes Mellitus, Hypertension Additional Past Medical History / Comment(s): Parkinsons, Arthritis, diverticulitis History of Any Multi-Drug Resistant Organisms: None Reported Past Surgical History: Joint Replacement, Tonsillectomy Additional Past Surgical History / Comment(s): belly surgery, cannot specify what exactly was done Past Anesthesia/Blood Transfusion Reactions: No Reported Reaction Past Psychological History: No Psychological Hx Reported Smoking Status: Never smoker Past Alcohol Use History: Occasional Past Drug Use History: None Reported ALLERGIES: Codeine CHEMICAL DEPENDENCY HISTORY: The patient denies any tobacco use. She reports rare alcohol use in the form of an occasional glass of wine or a gin and tonic. She reports no marijuana use. She reports no illicit drug use. She denies any significant history of rehab or detoxification. FAMILY PSYCHIATRIC/SUBSTANCE USE HISTORY: No reported family psychiatric history. SOCIAL HISTORY: Patient was born in [place], [place] and raised in [place], [place]. She is currently after being for 65 years. She has a son who currently works in the [employer] department and a daughter who is a nurse at [employer]. She has advanced education including her master's in precision agriculture technician education. 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 She currently lives in her own [facility] but has significant support in the form of 16 hours of home health care. MENTAL STATUS EXAM: General Appearance: Patient appears to be stated age is alert, directable, and attempts to cooperate. Patient appears to have good hygiene and grooming. Behavior: Patient is seated without any agitated behavior. Eye contact is appropriate. Speech: Patient's speech is fluent and nonpressured. Spontaneous with normal rate, tone, and volume. Mood/Affect: Patient reports their mood is "feeling pretty good," affect is congruent and bright Suicidality/Homicidality: Patient denies any suicidal or homicidal ideation. Perceptions: Patient denies any visual hallucinations and denies any auditory hallucinations Though content/process: There is no evidence of any delusional thought content and thought process is linear and goal-directed. Memory and concentration: AOX3, grossly intact for the purposes of this session. Can spell "WORLD" backwards Judgment and insight: Excellent Vital Signs Temp 97.7 F 12/22/22 07:08 Pulse 53 L 12/22/22 09:38 Resp 18 12/22/22 09:38 BP 166/82 12/22/22 07:08 Pulse Ox 95 12/22/22 07:08 FiO2 Intake & Output 12/21/22 12/22/22 12/22/22 18:59 06:59 18:59 Weight 81.647 kg Other: Voiding Method Diaper Diaper Diaper # Voids 3 2 Laboratory Results WBC 7.8 k/uL (3.8-10.6) 12/19/22 23: RBC 4.43 m/uL (3.80-5.40) 12/19/22 23:33 Hgb 12.9 gm/dL (11.4-16.0) 12/19/22 23: Hct 40.0 % (34.0-46.0) 12/19/22 23: MCV 90.3 fL (80.0-100.0) 12/19/22 23: MCH 29.2 pg (25.0-35.0) 12/19/22 23: MCHC 32.3 g/dL (31.0-37.0) 12/19/22 23: RDW 12.3 % (11.5-15.5) 12/19/22 23:33 Plt Count 224 k/uL (150-450) 12/19/22 23:33 MPV 7.4 12/19/22 23: Neutrophils % 65 % 12/19/22 23:33 Lymphocytes % 22 % 12/19/22 23:33 Monocytes % 6 % 12/19/22 23:33 Eosinophils % 5 % 12/19/22 23: Basophils % 0 % 12/19/22 23: Neutrophils # 5.1 k/uL (1.3-7.7) 12/19/22 23: Lymphocytes # 1.7 k/uL (1.0-4.8) 12/19/22 23: Monocytes # 0.4 k/uL (0-1.0) 12/19/22 23: Eosinophils # 0.4 k/uL (0-0.7) 12/19/22 23:33 Basophils # 0.0 k/uL (0-0.2) 12/19/22 23:33 Sodium 139 mmol/L (137-145) 12/19/22 23:33 Potassium 4.3 mmol/L (3.5-5.1) 12/19/22 23:33 Chloride 105 mmol/L (98-107) 12/19/22 23:33 Carbon Dioxide 29 mmol/L (22-30) 12/19/22 23:33 Anion Gap 5 mmol/L 12/19/22 23:33 BUN 16 mg/dL (7-17) 12/19/22 23:33 Creatinine 0.69 mg/dL (0.52-1.04) 12/19/22 23:33 Est GFR (CKD-EPI)AfAm >90 (>60 ml/min/1.73 sqM) 12/19/22 23:33 Est GFR (CKD-EPI)NonAf 79 (>60 ml/min/1.73 sqM) 12/19/22 23:33 Glucose 117 mg/dL (74-99) H 12/19/22 23:33 POC Glucose (mg/dL) 213 mg/dL (70-110) H 12/22/22 10:58 POC Glu [employer] Chemist ID Kamari Montero 12/22/22 10:[address] Glu mg/dL 180 12/20/22 23:33 Hemoglobin A1c 7.9 % (0.0-6.0) H 12/20/22 23:33 Calcium 8.7 mg/dL (8.4-10.2) 12/19/22 23:33 Magnesium 1.7 mg/dL (1.6-2.3) 12/19/22 23:33 Total Bilirubin 0.7 mg/dL (0.2-1.3) 12/19/22 23:33 AST 19 U/L (14-36) 12/19/22 23:33 ALT 13 U/L (4-34) 12/19/22 23:33 Alkaline Phosphatase 65 U/L (38-126) 12/19/22 23:33 Troponin I 0.024 ng/mL (0.000-0.034) 12/19/22 23:32 Total Protein 6.3 g/dL (6.3-8.2) 12/19/22 23:33 Albumin 3.3 g/dL (3.5-5.0) L 12/19/22 23:33 Lipase 48 U/L (23-300) 12/19/22 23:33 Urine Color Yellow 12/20/22 05:17 Urine Appearance Turbid (Clear) H 12/20/22 05:17 Urine pH 6.0 (5.0-8.0) 12/20/22 05:17 Ur Specific [place] 1.037 (1.001-1.035) H 12/20/22 05:17 Urine Protein 1+ (Negative) H 12/20/22 05:17 Urine Glucose (UA) Negative (Negative) 12/20/22 05:17 Urine Ketones 2+ (Negative) H 12/20/22 05:17 Urine Blood Trace (Negative) H 12/20/22 05:17 Urine Nitrite Negative (Negative) 12/20/22 05:17 Urine Bilirubin Negative (Negative) 12/20/22 05:17 Urine Urobilinogen <2.0 mg/dL (<2.0) 12/20/22 05:17 Ur Leukocyte Esterase Large (Negative) H 12/20/22 05:17 Urine RBC 25 /hpf (0-5) H 12/20/22 05:17 Urine WBC 119 /hpf (0-5) H 12/20/22 05:17 Ur Squamous Epith Cells 2 /hpf (0-4) 12/20/22 05:17 Amorphous Sediment Few /hpf (None) H 12/20/22 05:17 Urine Bacteria Occasional /hpf (None) H 12/20/22 05:17 STRENGTHS/WEAKNESSES: Strength is that the patient has significant supports, has no significant history of substance abuse, and no significant history of severe mental illness. INTELLECT: average IMPRESSIONS: Acute metabolic encephalopathy likely secondary to urinary tract infection - appears resolved Parkinson's disease PLAN: -Continue your medical management for urinary tract infection -At this time patient DOES NOT meet criteria for inpatient psychiatric admission. The patient is currently not presenting with imminent risk of harm to self or others. She is alert and oriented 3. She is not overtly manic or psychotic. -Delirium precautions recommended with patient including - avoiding use of narcotics and RO[employer] sedatives, limit anticholinergic medications when possible, frequent re-orientation, minimize use of restraints, open window shades during the day and close them at night -Would recommend the following medication changes/additions: No medication recommendations we made at this time. -Psychiatry will sign off at this point, please contact with any questions. Recommend patient follows up with her primary care provider in the outpatient setting. 12/22/22 13:51
--- NOTE | 2022-12-22 14:04 | CDI ---
Documentation Clarification Form Date: 12/22/2022 1:51:51 PM From: Lana Lobato RN CCDS Phone: [phone] Admit Date: 12/20/2022 6:14:00 AM Patient Name: Miguel Mcpherson Visit Number: [id number] Discharge Date: ATTENTION: The Clinical Documentation Specialists (CDI) and [facility] Coding Staff appreciate your assistance in clarifying documentation. Please respond to the clarification below the line at the bottom and electronically sign. The CDI & [facility] Coding staff will review the response and follow-up if needed. Please note: Queries are made part of the Legal Health Record. If you have any questions, please contact the author of this message via ITS. Dr. Cayla Enriquez Stage 2 pressure ulcer is documented by Nursing 12/20, pressure injury assessment. Based on this information and the findings below, is there an additional diagnosis that is clinically appropriate for this patient? History/Risk Factors: 87-year old female presented to the hospital with being confused over the last 2 3 days and not feeling well and increasing depression. Medical History: Parkinsons disease, Dementia, dyslipidemia and HTN. 12/20, H&P. Clinical Indicators: Location: Sacrum Wound description: granulation 76-100% Granulation quality pink. Stage II. Treatment: Foam with boarder , Oral nutrition supplement, Absorbant under pad , Turn 2 q while in bed. Is there an additional diagnosis that is clinically appropriate for this patient? [ ] Pressure Ulcer Stage 2 [ ] Other condition, please specify [ ] Unable to determine Clinical Definitions: Stage 1 Pressure Ulcer: intact skin, non-blanching redness of local area Stage 2 Pressure Ulcer: Partial thickness, loss of dermis, pink wound bed Stage 3 Pressure Ulcer: Full thickness tissue loss Stage 4 Pressure Ulcer: Full thickness tissue loss with exposed bone, tendon, or muscle. Unstageable pressure ulcer: Full thickness tissue loss in which the base of the ulcer is covered by slough (yellow, davila, vital, green or brown) and/or eschar (davila, brown or black) in the wound bed. Documented in Discharge summary 12/22/2022 Stage 2 pressure ulcer to coccyx present upon admission. (Template Last Revised: November 2020) MTDD
[2022-12-22 14:30] VITALS: BP 150/64
--- NOTE | 2022-12-22 14:43 | P.DS ---
Providers Date of admission: 12/20/22 06:14 Expected date of discharge: 12/22/22 Attending physician: Destini Aragon MD Consults: 12/21/22 14:22 Consult Physician Urgent Consulting Provider: Jose Austin Consult Reason/Comments: increased depression Do you want consulting provider notified?: Yes Primary care physician: [facility] Course: Discharge Diagnosis: Urinary tract infection, patient received 1 dose of IV antibiotics with Rocephin 1 g IVPB and being discharged home on Keflex 500 mg by mouth every 6 hours 6 days to total an antibiotic treatment course of 7 days. Acute on chronic metabolic encephalopathy, resolved. Patient alert to person, place, time, and situation upon discharge. Patient also evaluated by psychiatry recommending and no medication changes or recommendations at this time. Insulin-dependent diabetes, continue home medication regimen with metformin, glimepiride, and NovoLog. Parkinson's disease, continue carbidopa levodopa. Dementia, continue Aricept 10 mg nightly. Dyslipidemia, continue rosuvastatin 5 mg daily. Hypertension, vital signs stable. Patient to continue losartan 50 mg daily. Stage II pressure ulcer to coccyx, present upon admission. Patient was provided with barrier cream upon discharge and encouraged to offload from coccyx as much as possible to assist with healing . Hospital Course: Patient is a very pleasant 87-year-old female with past medical history of Parkinson's disease, dementia, hypertension, dyslipidemia, and insulin-dependent diabetes. She presented to the emergency department on 12/20/22 from [facility] with a chief complaint of worsening confusion, increased lethargy, and noncompliance with medications. Reportedly, patient lives in [facility] and has 18 hours of home care services each day. Per documentation in chart, pt's home care nurse had noted that over the previous 2- 3 days patient has been staying in bed, appearing depressed and has been more confused. Patient underwent full evaluation in the emergency department. Vital signs were unremarkable with temperature was 98.8, pulse 58, blood pressure 155/70, respiratory rate 16, saturating at 97% on room air. EKG shows normal sinus rhythm at 60 bpm with first-degree AV block with CT interval of 231 ms and T-wave inversion in aVL and V2 upon personal review and interpretation. Chest x-ray reviewed and was negative showing no acute process. Laboratory workup showed normal CBC and BMP, glucose was 117. UA positive for infection showing large leukocyte esterase, negative nitrites. Patient admitted for encephalopathy and urinary tract infection. Psychiatry also consulted for r eports of increased depression since the of her . Patient had full improvement of mentation and continued to be alert and oriented to person, time, place, and situation. She was evaluated and cleared by psychiatry recommending no medication changes at this time. Patient received 1 dose of IV antibiotics with Rocephin 1 g IVPB and was discharged home on Keflex 500 mg by mouth every 6 hours 6 additional days to total an antibiotic treatment course of 7 days. Medically, patient is stable at this time and denies having any complaints, questions, or concerns. Patient stable for discharge home with continued home health care and to follow up with PCP in 1-2 days. Physical exam: General: non toxic, no distress, appears at stated age Derm: warm, dry. Patient with stage II pressure ulcer to coccyx. Head: atraumatic, normocephalic, symmetric Eyes: EOMI, no lid lag, anicteric sclera Mouth: no lip lesion, mucus membranes moist Cardiovascular: S1S2 reg, no murmur, positive posterior tibial pulse bilateral, Lungs: CTA bilateral, no rhonchi, no rales , no accessory muscle use Abdominal: soft, nontender to palpation, no guarding, no appreciable organomegaly Ext: no gross muscle atrophy, no edema, no contractures Neuro: CN II-XI grossly intact, no focal neuro deficits Psych: Alert, oriented, appropriate affect A total of 33 minutes of time were spent preparing this complex discharge summary. Pt was discharged on 12/18/22 at 2:40 PM. Patient was seen independently by Nurse Practitioner. This document was prepared using [employer] (FIG) dictation software. Please allow for errors in international guest coordinator while rare they do occur. Sonny Kendrick NP rendered care for this patient independently, reviewed the fi ndings and plan as documented in the note above. I did not physically speak with or examine the patient on this date. Patient Condition at Discharge: Stable Plan - Discharge Summary Discharge Rx Participant: No New Discharge Prescriptions: New Cephalexin [Keflex] 500 mg PO Q6HR 6 Days #24 cap Continue Famotidine 40 mg PO HS Losartan [Cozaar] 50 mg PO DAILY Nystatin/Triamcin [Nystatin-Triamcinolone] 1 applic TOPICAL DAILY PRN PRN Reason: skin folds Rosuvastatin Calcium [Crestor] 5 mg PO MOWE Acetaminophen Tab [Tylenol] 650 mg PO Q6HR PRN tab PRN Reason: Mild Pain Or Fever > 100.5 metFORMIN HCL 1,000 mg PO BID QUEtiapine FUMARATE [SEROquel] 25 mg PO BID Hydrocortisone Cream [Hydrocortisone 2.5% Cream] 1 applic TOPICAL BID PRN PRN Reason: Itching HYDROcodone/APAP 7.5-325MG [[place] 7.5-325] 1 tab PO DAILY Donepezil [Aricept] 10 mg PO HS Glimepiride [Amaryl] 2 mg PO BID Carbidopa-Levodopa 25-100 mg [Sinemet 25-100 mg] 2.5 tab PO TID DULoxetine HCL [Cymbalta] 30 mg PO DAILY Insulin Aspart [NovoLOG Flexpen] See Protocol SQ AC-TID Gabapentin [Neurontin] 100 mg PO BID Discharge Medication List Famotidine 40 mg PO HS 07/14/16 [History] Losartan [Cozaar] 50 mg PO DAILY 07/15/18 [History] Donepezil [Aricept] 10 mg PO HS 08/31/21 [History] Glimepiride [Amaryl] 2 mg PO BID 08/31/21 [History] Nystatin/Triamcin [Nystatin-Triamcinolone] 1 applic TOPICAL DAILY PRN 08/31/21 [History] Rosuvastatin Calcium [Crestor] 5 mg PO MOWE 08/31/21 [History] Acetaminophen Tab [Tylenol] 650 mg PO Q6HR PRN tab 09/05/21 [Rx] Carbidopa-Levodopa 25-100 mg [Sinemet 25-100 mg] 2.5 tab PO TID 12/20/22 [H istory] DULoxetine HCL [Cymbalta] 30 mg PO DAILY 12/20/22 [History] Gabapentin [Neurontin] 100 mg PO BID 12/20/22 [History] HYDROcodone/APAP 7.5-325MG [[place] 7.5-325] 1 tab PO DAILY 12/20/22 [History] Hydrocortisone Cream [Hydrocortisone 2.5% Cream] 1 applic TOPICAL BID PRN 12/20/22 [History] Insulin Aspart [NovoLOG Flexpen] See Protocol SQ AC-TID 12/20/22 [History] QUEtiapine FUMARATE [SEROquel] 25 mg PO BID 12/20/22 [History] metFORMIN HCL 1,000 mg PO BID 12/20/22 [History] Cephalexin [Keflex] 500 mg PO Q6HR 6 Days #24 cap 12/22/22 [Rx] Follow up Appointment(s)/Referral(s): Gregorio Willson MD [REFERRING] - 1-2 Days (office not answering please call to schedule appointment ) [facility] [NON-STAFF] - 1-2 Days Patient Instructions/Handouts: Urinary Tract Infection in Women (DC) Activity/Diet/Wound Care/Special Instructions: Activity: As tolerated. Take breaks as needed. Recommend offloading from coccyx as much as possible to allow for better healing environment for stage II pressure ulcer on coccyx which was present upon arrival to our facility. Diet: Heart healthy and carb consistent diet. Avoid salts, or foods with hidden salts such as canned or boxed foods and frozen dinners. Extra salt makes your heart work harder and traps the fluid in your body for longer. Special Instructions: Take all of your medications as directed and remember to keep all of your d octor's appointments and follow-up as needed. Thank you for allowing us to participate in your care, it was truly a pleasure having you for our patient!!! Discharge Disposition: HOME WITH HOME HEALTH SERVICES
== END 2022-12-22 15:48 | disposition home health service (06) ==
LOC: EC 22:30 → INTOOBSV 12-20 06:14 → 4SSUR 12-20 06:14
PROVIDERS: ADMIT Internal Medicine; ATTEND Internal Medicine
DX: N39.0 Urinary tract infection, site not specified (principal); G93.41 Metabolic encephalopathy; M25.78 Osteophyte, vertebrae; G20 Parkinson's disease; F02.80 Dementia in other diseases classified elsewhere, unspecified severity, without behavioral disturbance, psychotic disturbance, mood disturbance, and anxiety; I10 Essential (primary) hypertension; E66.9 Obesity, unspecified; L89.152 Pressure ulcer of sacral region, stage 2; E11.622 Type 2 diabetes mellitus with other skin ulcer; I44.0 Atrioventricular block, first degree; E78.5 Hyperlipidemia, unspecified; Z91.148 Patient's other noncompliance with medication regimen for other reason; Z79.4 Long term (current) use of insulin; Z79.899 Other long term (current) drug therapy; Z79.84 Long term (current) use of oral hypoglycemic drugs; Z88.5 Allergy status to narcotic agent; Z68.30 Body mass index [BMI] 30.0-30.9, adult
CPT/HCPCS: 96365; 96366; 96372 ×2; 96376; 99285; 36415; 93005; 97116; 97162; 97530; 97166; 80053; 83690; 83735; 84484; 85025; 81001; 87086; 83036; 71046; G0378 ×3; J1650 ×2; J0696 ×2

== ENCOUNTER 2023-01-02 10:47 | Emergency (ER) | payer MEDICARE ==
[2023-01-02 10:55] VITALS: RESP 18
[2023-01-02] MEDS ORDERED: PROPARACAINE 0.5% OPHTH DROPS 15 ML BTL LEFT EYE STA (11:24)
[2023-01-02] MEDS ORDERED: FLUORESCEIN STRIPS 1 MG STRIP LEFT EYE ONE (11:24)
[2023-01-02] MEDS ORDERED: valACYclovir HCL 1,000 MG TABLET PO STA (11:53)
--- NOTE | 2023-01-02 12:25 | ED ---
General Adult HPI - General Chief complaint: Skin/Abscess/Foreign Body Stated complaint: POSSIBLE SHINGLES Time Seen by Provider: 01/02/23 11:03 Source: patient, RN notes reviewed Mode of arrival: EMS Limitations: physical limitation - History of Present Illness Initial comments: 87-year-old female presents emergency department chief complaint of "shingles." She states that this rash started on . She states that it is mildly painful. The rash is on her left cheek, eyelid, and forehead stopping at the hairline. Rash does not cross the midline. There are some crusts. The rash does not extend to the tip of the nose. She reports chickenpox as a kid. Denies headache. Denies vision changes. Denies fever. She states she wears glasses for reading, denies contacts. States she feels well overall. - Related Data Home Medications Medication Instructions Recorded Confirmed Famotidine 40 mg PO HS 07/14/16 12/20/22 Losartan [Cozaar] 50 mg PO DAILY 07/15/18 12/20/22 Donepezil [Aricept] 10 mg PO HS 08/31/21 12/20/22 Glimepiride [Amaryl] 2 mg PO BID 08/31/21 12/20/22 Nystatin/Triamcin 1 applic TOPICAL DAILY PRN 08/31/21 12/20/22 [Nystatin-Triamcinolone] Rosuvastatin Calcium [Crestor] 5 mg PO MOWE 08/31/21 12/20/22 Carbidopa-Levodopa 25-100 mg 2.5 tab PO TID 12/20/22 12/20/22 [Sinemet 25-100 mg] DULoxetine HCL [Cymbalta] 30 mg PO DAILY 12/20/22 12/20/22 Gabapentin [Neurontin] 100 mg PO BID 12/20/22 12/20/22 HYDROcodone/APAP 7.5-325MG [[place] 1 tab PO DAILY 12/20/22 12/20/22 7.5-325] Hydrocortisone Cream 1 applic TOPICAL BID PRN 12/20/22 12/20/22 [Hydrocortisone 2.5% Cream] Insulin Aspart [NovoLOG Flexpen] See Protocol SQ AC-TID 12/20/22 12/20/22 QUEtiapine FUMARATE [SEROquel] 25 mg PO BID 12/20/22 12/20/22 metFORMIN HCL 1,000 mg PO BID 12/20/22 12/20/22 Previous Rx's Medication Instructions Recorded Acetaminophen Tab [Tylenol] 650 mg PO Q6HR PRN tab 09/05/21 Cephalexin [Keflex] 500 mg PO Q6HR 6 Days #24 cap 12/22/22 Erythromycin Ophth Oint [Romycin 1 applic LEFT EYE QID #3.5 gm 01/02/23 Ophth Oint] valACYclovir HCL [Valtrex] 1,000 mg PO TID #30 tablet 01/02/23 Allergies Allergy/AdvReac Type Severity Reaction Status Date / Time codeine AdvReac Hallucinations, Verified 01/02/23 10:55 See Comment Review of Systems ROS Statement: Those systems with pertinent positive or pertinent negative responses have been documented in the HPI. ROS Other: All systems not noted in ROS Statement are negative. Past Medical History Past Medical History: Diabetes Mellitus, Hypertension Additional Past Medical History / Comment(s): Parkinsons, Arthritis, diverticulitis History of Any Multi-Drug Resistant Organisms: None Reported Past Surgical History: Joint Replacement, Tonsillectomy Additional Past Surgical History / Comment(s): belly surgery, cannot specify what exactly was done Past Anesthesia/Blood Transfusion Reactions: No Reported Reaction Past Psychological History: No Psychological Hx Reported Smoking Status: Never smoker Past Alcohol Use History: Occasional Past Drug Use History: None Reported General Exam Limitations: physical limitation General appearance: alert, in no apparent distress Eye exam: Present: PERRL, EOMI, conjunctival injection (left), periorbital swelling (left), other (left sided erythema and swelling to upper and lower eyelids, fontana lamp exam showed no abnormal staining to the cornea of the left eye, photosensitivity of left eye) ENT exam: Present: normal exam, normal oropharynx, mucous membranes moist, TM's normal bilaterally, normal external ear exam Respiratory exam: Present: normal lung sounds bilaterally. Absent: respiratory distress, wheezes, rales, rhonchi, stridor Cardiovascular Exam: Present: regular rate, normal rhythm, normal heart sounds. Absent: systolic murmur, diastolic murmur, rubs, gallop, clicks GI/Abdominal exam: Present: soft, normal bowel sounds. Absent: distended, tenderness, guarding, rebound, rigid Neurological exam: Present: alert, oriented X3, CN II-XII intact Skin exam: Present: warm, dry, rash (rash to left forehead in distribution of 5th cranial nerve ophthalmic branch not extending to the tip of the nose), vesicles Course Vital Signs 01/02/23 01/02/23 01/02/23 10:49 11:48 12:54 Temperature 97.8 F Pulse Rate 83 75 61 Respiratory 18 18 18 Rate Blood Pressure 109/49 126/64 135/60 O2 Sat by Pulse 96 94 L 96 Oximetry 01/02/23 13:04 Temperature 98.0 F Pulse Rate 65 Respiratory 18 Rate Blood Pressure 130/71 O2 Sat by Pulse 98 Oximetry Medical Decision Making - Medical Decision Making Was pt. sent in by a medical professional or institution (, [facility], [facility], urgent care, hospital, or long-term...) When possible be specific @ -No Did you speak to anyone other than the patient for history (EMS, parent, family, police, friend...)? What history was obtained from this source @ -EMS Did you review nursing and triage notes (agree or disagree)? Why? @ -I reviewed and agree with nursing and triage notes Were old charts reviewed (outside hosp., previous admission, EMS record, old EKG, old radiological studies, urgent care reports/EKG's, long-term records)? Report findings @ -No old charts were reviewed Differential Diagnosis (chest pain, altered mental status, abdominal pain women, abdominal pain men, vaginal bleeding, weakness, fever, dyspnea, syncope, headache, dizziness, GI bleed, back pain, seizure, CVA, palpatations, mental health, musculoskeletal)? @ -shingles, rash, atopic dermatitis, contact dermatitis, this list is not all inclusive EKG interpreted by me (3pts min.). @ -None X-rays interpreted by me (1pt min.). @ -None done CT interpreted by me (1pt min.). @ -None done U/S interpreted by me (1pt. min.). @ -None done What testing was considered but not performed or refused? (CT, X-rays, U/S, labs)? Why? @ -None What meds were considered but not given or refused? Why? @ -None Did you discuss the management of the patient with other professionals (professionals i.e. Dr., PA, [facility] [employer] [facility], lab, RT, psych nurse, manager social media, phone banker, teacher, flight communications officer, field case manager)? Give summary @ -No Was smoking cessation discussed for >3mins.? @ -No Was critical care preformed (if so, how long)? @ -No Were there social determinants of health that impacted care today? How? (Homelessness, low income, unemployed, alcoholism, drug addiction, transportation, low edu. Level, literacy, decrease access to med. care, [facility], rehab)? @ -No Was there de-escalation of care discussed even if they declined (Discuss DNR or withdrawal of care, Hospice)? DNR status @ -No What co-morbidities impacted this encounter? (DM, HTN, Smoking, COPD, CAD, Cancer, CVA, ARF, Chemo, Hep., AIDS, mental health diagnosis, sleep apnea, morbid obesity)? @ -None Was patient admitted / discharged? Hospital course, mention meds given and route, prescriptions, significant lab abnormalities, going to OR and other pertinent info. @ -Discharged. Patient presented to the emergency department with chief complaint of rash on the left forehead, eyelid x3 days. Topical proparacaine and fluorescein stain was administered, with lamp exam was performed which showed no dendritic lesions on the cornea, no other lesions on the cornea. Patient had conjunctival injections. Patient was administered 1 g of valacyclovir here. Prescription sent for valacyclovir 1 g, topical ophthalmic erythromycin ointment. Discussed with patient that this is likely shingles. Patient advised to call ophthalmology upon discharge. Case discussed with my attending Dr. Cottrell. Patient discharged in stable condition. Undiagnosed new problem with uncertain prognosis? @ -No Drug Therapy requiring intensive monitoring for toxicity (Heparin, Nitro, Insulin, Cardizem)? @ -No Were any procedures done? @ -No Diagnosis/symptom? @ -Shingles Acute, or Chronic, or Acute on Chronic? @ -Acute Uncomplicated (without systemic symptoms) or Complicated (systemic symptoms)? @ -Uncomplicated Side effects of treatment? @ -No Exacerbation, Progression, or Severe Exacerbation? @ -No Poses a threat to life or bodily function? How? (Chest pain, [place], [place], pneumonia, PE, COPD, DKA, ARF, appy, cholecystitis, CVA, Diverticulitis, Homicidal, Suicidal, threat to staff... and all critical care pts) @ -No Disposition Clinical Impression: Shingles of eyelid Disposition: HOME SELF-CARE Condition: Stable Additional Instructions: Please follow up with ophthalmology within the next 1-2 days. Please return to the Emergency Department if symptoms worsen or any other concerns. Prescriptions: Erythromycin Ophth Oint [Romycin Ophth Oint] 1 applic LEFT EYE QID #3.5 gm valACYclovir HCL [Valtrex] 1,000 mg PO TID #30 tablet Is patient prescribed a controlled substance at d/c from ED?: No Referrals: Gregorio Willson MD [Primary Care Provider] - 1-2 days Zabrina Castrejon MD [STAFF PHYSICIAN] - 1-2 days Time of Disposition: 12:24
[2023-01-02 13:05] VITALS: BP 130/71; PULSE 65; TEMP 98
== END 2023-01-02 13:35 | disposition home or self-care (01) ==
LOC: EC 10:47
DX: B02.39 Other herpes zoster eye disease (principal); E11.9 Type 2 diabetes mellitus without complications; I10 Essential (primary) hypertension; G20 Parkinson's disease; M19.90 Unspecified osteoarthritis, unspecified site; Z79.4 Long term (current) use of insulin; Z79.84 Long term (current) use of oral hypoglycemic drugs; Z79.899 Other long term (current) drug therapy; Z88.5 Allergy status to narcotic agent
CPT/HCPCS: 99284